=== PATIENT | male | born 1955 | race Caucasian/White ===

== ENCOUNTER 2018-05-25 13:10 | Inpatient (IN) ==
--- NOTE | 2018-05-25 13:54 | XR ---
EXAM DATE: 05/25/2018 1:49 PM EST AGE/SEX: 62 years / Male INDICATIONS: Chest pain. CLINICAL DATA: This is the patient's initial encounter. Patient reports that signs and symptoms have been present for 1 day and indicates a pain score of 4/10. MEDICAL/SURGICAL HISTORY: Metastatic lung cancer COMPARISON: No prior exams available for comparison. FINDINGS: Study remains abnormal. The heart remains enlarged. There is elevation of the left hemidiaphragm with consolidative changes laterally in the left lung. Minimal parenchymal changes are present in the right base There is no pleural effusion. [id number] in good position. CONCLUSION: Chest remains abnormal with consolidative masslike opacities in the left lung laterally and right bas e Moderate compensated cardiomegaly Electronically signed by: Cuba Rodney MD Board Certified Radiologist 05/25/2018 1:53 PM EST
[2018-05-25 14:56] LABS: Baso % (Auto) 0.2 % (0.0-2.0); Eos % (Auto) 0.4 % (0.0-4.0); Hematocrit 37.4 % (39.0-51.0); Hemoglobin 12.3 gm/dL (13.0-17.0); Lymph # (Auto) 0.6 th/mm3 (1.0-4.8); Lymph % (Auto) 5.9 % (9.0-44.0); Mean Corpuscular HGB Conc 32.9 % (32.0-36.0); Mean Corpuscular Hemoglobin 30.6 pg (27.0-34.0); Mean Corpuscular Volume 92.9 fL (80.0-100.0); Mean Platelet Volume 8.5 fL (7.0-11.0); Mono # (Auto) 0.8 th/mm3 (0.0-0.9); Mono % (Auto) 7.7 % (0.0-8.0); Neut # (Auto) 8.5 th/mm3 (1.8-7.7); Neut % (Auto) 85.8 % (16.0-70.0); Platelet Count 183 th/mm3 (150-450); Red Blood Count 4.03 mil/mm3 (4.50-5.90); White Blood Count 9.9 th/mm3 (4.0-11.0)
[2018-05-25] MEDS ORDERED: Morphine Inj 4 MG, Morphine Inj 2 MG IV.PUSH ONE ×4 (15:08→17:45)
[2018-05-25 15:12] LABS: Alanine Aminotransferase 40 U/L (12-78); Albumin 2.8 g/dL (3.4-5.0); Anion Gap 7 meq/L (5-15); Aspartate Aminotransferase 21 U/L (15-37); Blood Urea Nitrogen 17 mg/dL (7-18); Chloride 98 meq/L (98-107); Glomerular Filtration Rate 78 mL/min (>89); Glucose,Random 278 mg/dL (74-106); Potassium 4.2 meq/L (3.5-5.1); Sodium 134 meq/L (136-145)
[2018-05-25 15:14] LABS: Alkaline Phosphatase 99 U/L (45-117); Total Protein 6.5 g/dL (6.4-8.2)
[2018-05-25 15:54] LABS: Lymphocytes 2 % (9-44); Metamyelocytes 1 % (0-1); Monocytes 6 % (0-8); Myelocytes 1 % (0-0)
[2018-05-25 15:56] LABS: Platelet Estimate Normal (Normal); Platelet Morphology Normal (Normal)
--- NOTE | 2018-05-25 17:41 | CT ---
EXAM DATE: 05/25/2018 5:34 PM EST AGE/SEX: 62 years / Male INDICATIONS: Leg numbness and back pain , patient with lung cancer CLINICAL DATA: This is the patient's initial encounter. Patient reports that signs and symptoms have been present for 1 day and indicates a pain score of 8/10. MEDICAL/SURGICAL HISTORY: Carcinoma, lung. Diabetes. None. RADIATION DOSE: 32.97 CTDI (mGy) ; Combined studies COMPARISON: No prior exams available for comparison. TECHNIQUE: Contiguous axial images were acquired with a multirow detector CT scanner without contras t. Multiplanar reconstructions in the sagittal and coronal plane were also performed. Using automate d exposure control and adjustment of the mA and/or kV according to patient size, radiation dose was k ept as low as reasonably achievable to obtain optimal diagnostic quality images. DICOM format image data is available electronically for review and comparison. FINDINGS: Vertebrae: Normal vertebral body height. Degenerative disc disease L4-5. Small anterior endplate ost eophytes at multiple levels. Alignment: Normal. No subluxation. T12-L1: The thecal sac has a normal diameter. No evidence of disc bulge or protrusion. The neural foramina are patent bilaterally. L1-L2: The thecal sac has a normal diameter. No evidence of disc bulge or protrusion. The neural f oramina are patent bilaterally. L2-L3: Mild broad-based disc bulge abuts the ventral thecal sac without canal stenosis. The neural f oramina are patent bilaterally. L3-L4: Moderate broad-based disc bulge abuts the ventral thecal sac and in conjunction with hypertro phic facets/ligamentum flavum thickening causes severe canal stenosis. The neural foramina are paten t bilaterally. L4-L5: Moderate right-sided protrusion abuts the ventral thecal sac. Mild degree of canal stenosis. Moderate bilateral neural foraminal narrowing. Hypertrophic facets greater on the right. L5-S1: The thecal sac has a normal diameter. No evidence of disc bulge or protrusion. The neural f oramina are patent bilaterally. CONCLUSION: 1. Mild broad-based disc bulge L2-3 without canal stenosis. 2. Moderate broad-based disc bulge at L3-4 in conjunction with hypertrophic facets causes severe can al stenosis. 3. Moderate right-sided protrusion L4-5 causes mild canal stenosis. Electronically signed by: Emory Azevedo MD Board Certified Radiologist 05/25/2018 5:40 PM EST
--- NOTE | 2018-05-25 17:50 | CT ---
EXAM DATE: 05/25/2018 5:39 PM EST AGE/SEX: 62 years / Male INDICATIONS: Leg numbness, back pain, patient with lung cancer CLINICAL DATA: This is the patient's initial encounter. Patient reports that signs and symptoms have been present for 1 day and indicates a pain score of 8/10. MEDICAL/SURGICAL HISTORY: Carcinoma, lung. Diabetes. None. RADIATION DOSE: 32.97 CTDI (mGy) ; Combined studies COMPARISON: [facility], CTA PULMONARY W CONTRAST W 3D, 04/20/2018. [facility], CTA PULMONARY W CONTRAST W 3D, 01/08/2018. . TECHNIQUE: Contiguous axial images were acquired using a multirow detector CT scanner without contra st. Multiplanar reconstruction in the sagittal and coronal planes was performed. Using automated exp osure control and adjustment of the mA and/or kV according to patient size, radiation dose was kept a s low as reasonably achievable to obtain optimal diagnostic quality images. DICOM format image data is available electronically for review and comparison. FINDINGS: Vertebrae: Compression fracture moderate severity at T3. Kyphosis and diffuse moderate degenerative changes. Multiple anterior endplate osteophytes. Large mass in the right lower lobe Alignment: Normal. No subluxation. T1 - T2: Normal. T2 - T3: The thecal sac has a normal diameter. No evidence of disc bulge or protrusion. T3 - T4: There appears to be a compression fracture at T3. There appears to be involvement of the th ecal sac and possible canal stenosis. This is somewhat limited due to image degradation. T4 - T5: The thecal sac has a normal diameter. No evidence of disc bulge or protrusion. T5 - T6: The thecal sac has a normal diameter. No evidence of disc bulge or protrusion. T6 - T7: The thecal sac has a normal diameter. No evidence of disc bulge or protrusion. T7 - T8: The thecal sac has a normal diameter. No evidence of disc bulge or protrusion. T8 - T9: The thecal sac has a normal diameter. No evidence of disc bulge or protrusion. T9 - T10: The thecal sac has a normal diameter. No evidence of disc bulge or protrusion. T10 - T11: The thecal sac has a normal diameter. No evidence of disc bulge or protrusion. T11 - T12: The thecal sac has a normal diameter. No evidence of disc bulge or protrusion. T12 - L1: The thecal sac has a normal diameter. No evidence of disc bulge or protrusion. CONCLUSION: 1. Pathologic fracture with moderate compression deformity at T3. There does appear to be a large so ft tissue component encroaching upon the thecal sac and causing severe canal stenosis. The exam is so mewhat limited due to image degradation. 2. Kyphosis and diffuse degenerative changes. Electronically signed by: Emory Azevedo MD Board Certified Radiologist 05/25/2018 5:49 PM EST
[2018-05-25] MEDS ORDERED: Morphine Sulfate Inj 8 MG/ML Vial IV.PUSH ONE (18:00)
--- NOTE | 2018-05-25 18:12 | ED ---
HPI General Chief complaint: Weakness Stated complaint: leg pain Time Seen by Provider: 05/25/18 13:22 History of Present Illness HPI narrative: Patient is a 62-year-old male presents emergency department for evaluation of weakness leg pain and inability to ambulate for the past 3 days. Patient has a history of squamous cell cancer of the lungs, he recently started chemotherapy. Denies any chest pain shortness of breath abdominal pain nausea vomiting urinary retention fevers cough or congestion. He does endorse low back pain which is chronic for him. May also have some upper back pain as well. States symptoms are severe, he has been urinating into a urinal instead of going to the bathroom. He is not had to have bowel movements is been lost on the couch. Is calmly by his and 2 sisters and they are unable to ambulate him at home secondary to his pain and his size. Symptoms are moderate , gradually worsening, over the past 3 days, associated signs and symptoms and context as above. Related Data Home Medications Medication Instructions Recorded Confirmed acetaminophen [Tylenol Extra 500 mg PO Q6H PRN 04/20/18 05/25/18 Strength] ibuprofen 400 mg PO Q4-6H PRN 04/20/18 05/25/18 oxycodone 10 mg PO Q4-6H PRN 04/20/18 05/25/18 alprazolam 0.5 mg PO BID PRN 05/25/18 05/25/18 metformin 850 mg PO BID 05/25/18 05/25/18 Allergies Allergy/AdvReac Type Severity Reaction Status Date / Time No Known Allergies Allergy Verified 05/25/18 13:20 Review of Systems ROS: all other systems reviewed are negative [facility] Social History Social History Substance History: No History of Abuse Second Hand Smoke Exposure: No Smoking Status: Never smoker How Often Do You Have a Drink Containing Alcohol: Never Recent Travel in [facility] within the Last 8 Weeks: No Recent Out of Country Travel within the Last 8 Weeks: No Immunization History Tetanus Immunization: >5 Years Exam Narrative Exam Narrative: GENERAL: Well-developed well-nourished, no obvious distress. morbidly obese. SKIN: Focused skin assessment warm/dry. HEAD: Atraumatic. Normocephalic. EYES: Pupils equal and round. No scleral icterus. No injection or drainage. ENT: No nasal bleeding or discharge. Mucous membranes pink and moist. NECK: Trachea midline. No JVD. CARDIOVASCULAR: Regular rate and rhythm. No murmur appreciated. RESPIRATORY: No accessory muscle use. Clear to auscultation. Breath sounds equal bilaterally. GASTROINTESTINAL: Abdomen soft, non-tender, nondistended. Hepatic and splenic margins not palpable. MUSCULOSKELETAL: No obvious deformities. No clubbing. No cyanosis. No edema. No midline CT or L-spine tenderness per NEUROLOGICAL: Awake and alert. No obvious cranial nerve deficits. Motor grossly within normal limits. Normal speech. Patient has 5 out of 5 strength in dorsiflexion and plantarflexion. He is able to move his legs at all joints but strength examination is limited by the patient's body habitus and willingness to cooperate in exam. PSYCHIATRIC: Appropriate mood and affect; insight and judgment normal. Course Initial Documented Vital Signs Temperature 97.5 F L 05/25/18 13:18 Pulse Rate 106 H 05/25/18 13:18 Respiratory Rate 24 05/25/18 13:18 Blood Pressure 138/7 L 05/25/18 13:18 Pulse Oximetry 93 L 05/25/18 13:18 Last Documented Vital Signs Temperature 97.5 F L 05/25/18 13:18 Pulse Rate 102 H 05/25/18 17:57 Respiratory Rate 18 05/25/18 17:57 Blood Pressure 97/56 L 05/25/18 17:57 Pulse Oximetry 97 05/25/18 17:57 Medical Decision Making [facility] Narrative Medical decision making narrative: Patient room in emerge department my first concern is for pathologic fracture of his back. CT scans of his thoracic and lumbar spine have been ordered and do show a acute compression fracture at T3 with some retropulsion of elements. Patient also had reported some numbness and tingling over his abdomen I think that this fracture needs further workup with MRI. Patient states he is incredibly claustrophobic but I have reiterated that he has to have this MRI to prevent paralysis. Patient was discussed with Dr. Sutton who is on-call for neurosurgery. Also discussed need for admission and he is agreeable. He is received a total of 12 mg of morphine. On-call hospitalist has been paged Dr. Correa. Lab Data Result diagrams: 05/25/18 14:20 05/25/18 14:20 Lab Results 05/25/18 05/25/18 Range/Units 14:20 14:20 WBC 9.9 (4.0-11.0) th/mm3 RBC 4.03 L (4.50-5.90) mil/mm3 Hgb 12.3 L (13.0-17.0) gm/dL Hct 37.4 L (39.0-51.0) % MCV 92.9 (80.0-100.0) fL MCH 30.6 (27.0-34.0) pg MCHC 32.9 (32.0-36.0) % RDW 15.0 (11.6-17.2) % Plt Count 183 (150-450) th/mm3 MPV 8.5 (7.0-11.0) fL Prelim Diff (Auto) Slide review pending Neut % (Auto) 85.8 H (16.0-70.0) % Lymph % (Auto) 5.9 L (9.0-44.0) % Chambers % (Auto) 7.7 (0.0-8.0) % Eos % (Auto) 0.4 (0.0-4.0) % Baso % (Auto) 0.2 (0.0-2.0) % Neut # (Auto) 8.5 H (1.8-7.7) th/mm3 Lymph # (Auto) 0.6 L (1.0-4.8) th/mm3 Chambers # (Auto) 0.8 (0.0-0.9) th/mm3 Eos # (Auto) 0.0 (0.0-0.4) th/mm3 Baso # (Auto) 0.0 (0.0-0.2) th/mm3 WBC Differential Manual diff final Seg Neuts % (Manual) 83 H (16-70) % Band Neuts % (Manual) 7 H (0-6) % Lymphocytes % (Manual) 2 L (9-44) % Monocytes % (Manual) 6 (0-8) % Metamyelocytes % (Man) 1 (0-1) % Myelocytes % (Man) 1 H (0-0) % Abs Neuts (Manual) 9.1 H (1.8-7.7) th/mm3 Differential Comment . Platelet Estimate Normal (Normal) Platelet Morphology Normal (Normal) Sodium 134 L (136-145) meq/L Potassium 4.2 (3.5-5.1) meq/L Chloride 98 (98-107) meq/L Carbon Dioxide 29.0 (21.0-32.0) meq/L Anion Gap 7 (5-15) meq/L BUN 17 (7-18) mg/dL Creatinine 0.98 (0.60-1.30) mg/dL Estimated GFR 78 L (>89) mL/min Random Glucose 278 H (74-106) mg/dL Calcium 9.0 (8.5-10.1) mg/dL Total Bilirubin 0.4 (0.2-1.0) mg/dL AST 21 (15-37) U/L ALT 40 (12-78) U/L Alkaline Phosphatase 99 (45-117) U/L Total Protein 6.5 (6.4-8.2) g/dL Albumin 2.8 L (3.4-5.0) g/dL Imaging Data Radiologist's impression: Chest X-Ray 05/25/18 13:24 CONCLUSION: Chest remains abnormal with consolidative masslike opacities in the left lung laterally and right base Moderate compensated cardiomegaly Lumbar Spine CT 05/25/18 15:05 CONCLUSION: 1. Mild broad-based disc bulge L2-3 without canal stenosis. 2. Moderate broad-based disc bulge at L3-4 in conjunction with hypertrophic facets causes severe canal stenosis. 3. Moderate right-sided protrusion L4-5 causes mild canal stenosis. Thoracic Spine CT 05/25/18 15:05 CONCLUSION: 1. Pathologic fracture with moderate compression deformity at T3. There does appear to be a large soft tissue component encroaching upon the thecal sac and causing severe canal stenosis. The exam is somewhat limited due to image degradation. 2. Kyphosis and diffuse degenerative changes. Discharge Plan Physicians Team ED Provider: Olivier Caruso Primary Care Provider: Anuel Watson Other Providers: Alexey Sutton Rxs /Orders / Referrals /Forms Prescriptions: No Action metformin 850 mg Tablet 850 mg PO BID RF: 0 alprazolam 0.5 mg Tablet 0.5 mg PO BID PRN (Reason: Pain) RF: 0 oxycodone 5 mg Tablet 10 mg PO Q4-6H PRN (Reason: Pain) RF: 0 acetaminophen [Tylenol Extra Strength] 500 mg Tablet 500 mg PO Q6H PRN (Reason: Pain) RF: 0 ibuprofen 200 mg Tablet 400 mg PO Q4-6H PRN (Reason: Pain) RF: 0 Status ED Status: Pending Admission
[2018-05-25] MEDS ORDERED: Bisacodyl 10 MG Supp RECTAL PRN (18:21)
[2018-05-25] MEDS ORDERED: Acetaminophen 325 MG Tablet PO PRN ×2 (18:21→21:55)
[2018-05-25] MEDS ORDERED: Dexamethasone Inj 20 MG/5 ML Vial IV.PUSH ONE (18:24)
[2018-05-25] MEDS: Enoxaparin Inj 40 MG/0.4 ML Syringe SQ SCH (19:14)
--- NOTE | 2018-05-25 19:39 | P.CONNS ---
History of Present Illness Service: Neurosurgery Consult date: 05/25/18 Requesting Physician: Olivier Caruso Reason for Consult: Back pain, T3 compression fracture Primary Care Provider: Anuel Watson MD Chief Complaint: back pain History of Present Illness: I was asked by to see and evaluate this pleasant 62-year-old male who presents to the emergency department for evaluation of back pain and weakness in BLE with inability to ambulate for the past 3 days. Patient has a history of squamous cell cancer of the lung, he recently started chemotherapy. Denies any chest pain shortness of breath abdominal pain nausea vomiting urinary retention fevers cough or congestion. He does endorse upper back pain which is chronic for him, he says that he has had this for months but the weakness since Wednesday.. States that the symptoms are severe, he has been urinating into a urinal instead of going to the bathroom. He has not had bowel movements for the past 3-4 days. He denies bowel/bladder dysfunction. Symptoms are gradually worsening, over the past 3 days Review of Systems All other systems reviewed negative except as stated in HPI PMFSH - History History Provided By: Patient - Medical History Medical History: Medical History (Last Reviewed 05/25/18 @ 19:14 by Alexey Sutton MD) Abnormal biopsy result Cancer, skin, squamous cell Diabetes Lung cancer - Tobacco History Second Hand Smoke Exposure: No Smoking Status: Never smoker - Alcohol History How Often Do You Have a Drink Containing Alcohol: Never - Substance Use History Substance History: No History of Abuse - Travel History Recent Travel in the [place] Within the Last 8 Weeks: No Recent Travel Out of the Country Within the Last 8 Weeks: No - Immunization History Tetanus Immunization: >5 Years Medications and Allergies Active Medications: Active Medications Acetaminophen (Tylenol) 650 mg PO Q4H PRN PRN Reason: Headache, fever, pain 1-4 Al Hydroxide/Mg Hydroxide (Milk Of Magnesia Liq) 30 ml PO Q12H PRN PRN Reason: Mild Constipation Bisacodyl (Dulcolax Supp) 10 mg RECTAL DAILY PRN PRN Reason: SEVERE CONSITIPATION Dexamethasone Sodium Phosphate (Decadron Inj) 4 mg IV.PUSH Q8HR BALTAZAR Enoxaparin Sodium (Lovenox Inj) 40 mg SQ Q24H BALTAZAR Lactulose (Lactulose Liq) 30 ml PO DAILY PRN PRN Reason: SEVERE CONSITIPATION Ondansetron HCl (Zofran Inj) 4 mg IV.PUSH Q6H PRN PRN Reason: NAUSEA OR VOMITING Sennosides (Senokot) 17.2 mg PO Q12H PRN PRN Reason: Moderate Constipation Sodium Chloride (Ns Flush) 2 ml IV.FLUSH UNSCH PRN PRN Reason: FLUSH AFTER USING IV ACCESS Sodium Chloride (Ns Flush) 2 ml IV.FLUSH BID BALTAZAR Sodium Chloride (Ns Flush) 2 ml IV.FLUSH PRN PRN PRN Reason: FLUSH AFTER USING IV ACCESS Allergies Allergy/AdvReac Type Severity Reaction Status Date / Time No Known Allergies Allergy Verified 05/25/18 13:20 Home Medications Medication Instructions Recorded Confirmed Type acetaminophen [Tylenol Extra 500 mg PO Q6H PRN 04/20/18 05/25/18 History Strength] ibuprofen 400 mg PO Q4-6H PRN 04/20/18 05/25/18 History oxycodone 10 mg PO Q4-6H PRN 04/20/18 05/25/18 History alprazolam 0.5 mg PO BID PRN 05/25/18 05/25/18 History carboplatin mg/m2 IV Q4W 05/25/18 History metformin 850 mg PO BID 05/25/18 05/25/18 History paclitaxel mg/m2/hr IV 05/25/18 History Exam Vital signs: Vital Signs 05/25/18 13:18 05/25/18 14:16 05/25/18 14:57 Temperature 97.5 F L Pulse Rate 106 H 99 H Respiratory Rate 24 18 Blood Pressure 138/7 L 126/80 Pulse Oximetry 93 L 95 96 05/25/18 17:57 Temperature Pulse Rate 102 H Respiratory Rate 18 Blood Pressure 97/56 L Pulse Oximetry 97 Intake & Output 05/25/18 05/25/18 05/26/18 06:59 18:59 06:59 Weight 163.293 kg - Constitutional mild distress, morbidly obese, cooperative - Routine HEENT Exam Head: Present: normocephalic, atraumatic Eye: Present: EOMI, PERRL, normal accommodation ENT: Present: mucous membranes moist, oropharynx clear, external ear normal, TM' s clear bilaterally - Routine Neck Exam Present: supple, full ROM, trachea midline - Routine Respiratory Exam Present: CTA bilaterally - Routine Cardiovascular Exam Present: RRR - Routine Abdominal Exam Present: soft, normoactive bowel sounds - Routine Extremities Exam Comments: R lower extremity with venous stasis and ? phlebitis over anterior willams - Routine Skin Exam Present: intact, warm, normal turgor - Routine Neurological Exam MS; AAOx3 Speech: fluent CNII-XII: intact, fundoscopic exam llimited due to pupillary constriction Motor 5/5 R=L in BUE RLE Iliopsoas #=/5 Quads- 3+/5 Ant. Tib 4+/5 EHL- 4+-5-/5 Sensory: +LT,+PP Cerebellum: WNL Gait: not tested - Detailed Neurological Exam: Coma Scale Eye Opening: Spontaneous Verbal Response: Oriented Motor Response: Obey commands [place] Coma Scale Total: 15 - Routine Psychiatric Exam Present: normal affect, normal thought process, cooperative, good judgment Results - Laboratory Findings CBC and BMP: 05/25/18 14:20 05/25/18 14:20 Abnormal lab findings: Abnormal Labs 05/25/18 05/25/18 14:20 14:20 RBC 4.03 L Hgb 12.3 L Hct 37.4 L Neut % (Auto) 85.8 H Lymph % (Auto) 5.9 L Neut # (Auto) 8.5 H Lymph # (Auto) 0.6 L Seg Neuts % (Manual) 83 H Band Neuts % (Manual) 7 H Lymphocytes % (Manual) 2 L Myelocytes % (Man) 1 H Abs Neuts (Manual) 9.1 H Sodium 134 L Estimated GFR 78 L Random Glucose 278 H Albumin 2.8 L - Diagnostic Findings EKG: report reviewed, image reviewed Chest x-ray: report reviewed, image reviewed Abdominal x-ray: report reviewed, image reviewed CT scan - abdomen: report reviewed, image reviewed CT scan - chest: report reviewed, image reviewed CT scan - pelvic: report reviewed, image reviewed US - abdomen: report reviewed, image reviewed US - kidney: report reviewed, image reviewed US - pelvic: report reviewed, image reviewed Assessment and Plan - Plan 64 yo male with acute onset of BLE weakness with Rt>>Lt. Right lower extremity shows possible early cellulitis,needs further workup T spine CT shows significant compression fracture with mild retropulsion although images are degraded due to morbid obesity. The patient has intact sensation so his symptoms do not correlate well with the T3 findings. Recc: T and L-spine MRI with and without Gadolinium Will follow with you Discussed Condition With: Patient and family members including sisters.
--- NOTE | 2018-05-25 20:46 | P.HPIM ---
History of Present Illness History of Present Illness: History from patient, ER physician communication, and review of medical records. Patient reported that for the past 3 days or so, he was so weak on his right side of the legs. He also has some numbness. He actually fell 2 days ago and injured his left knee. He denies any urinary disturbance or bowel disturbance. Reports he has been having back pain for the past 2 months as well. However the back pain is worse in the past 1 month or so. Denies any loss of sensation although he does feel numb on b right lower extremity. 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 He is currently on chemotherapy for this lung cancer and his first dose was done 2 weeks ago. While in the emergency room, further workup revealed a T3 pathological fracture. Patient was seen by neurosurgery in ER prior to my arrival. Apart from the above, patient denies any chest pain/palpitations/dizziness/ focal weakness. Denies any hematemesis/hematochezia/melena/hematuria. Denies any abdominal pains. Denies any nausea/vomiting/diarrhea/urinary burning or pain on urination. Patient reports of shortness of breath on exertion at baseline. Nothing has worsened in the past 2 weeks. Patient states that her right lower extremity is bigger than the left and he has had bilateral lower extremity swelling. Just 2 weeks ago, he has had ultrasound of the lower extremities done to rule out DVT with his oncologist Dr. Melchor. Review of system: complete review of systems performed and is negative apart from what is mentioned in HPI Past medical history: Squamous cell carcinoma of the left arm. Status post excision. Status post radiation therapy. 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 Status post chemotherapy first round 2 weeks ago. Next due on Wednesday. Also had radiation therapy to the lung. Diabetes Sleep apnea. On CPAP at home. Past surgical history: Surgical excision of the skin cancer MediPort placement Social history: Denies smoking/alcohol abuse/drug abuse. Never been a smoker. Family history: Mother had colon cancer at age 6060 years old. Father had esophageal cancer, vocal cord cancer. Possibly hypertension as well. Inpatient Certification Inpatient Certification: I certify that the inpatient services were ordered in accordance with Medicare regulations governing the order. This includes certification that hospital inpatient services are reasonable and necessary and in the case of services not specified as inpatient-only under 42 CFR 419.22(n), that they are appropriately provided as inpatient services in accordance to with the 2-midnight benchmark under 43 CFR 412.3(e) Estimated Total Length of Stay (Days): 3 Plans for Post Hospital Care: Not yet determined Review of Systems Review of Systems: all other systems reviewed are negative [facility] Social History Social History Substance History: No History of Abuse Second Hand Smoke Exposure: No Smoking Status: Never smoker How Often Do You Have a Drink Containing Alcohol: Never Recent Travel in [facility] within the Last 8 Weeks: No Recent Out of Country Travel within the Last 8 Weeks: No Immunization History Tetanus Immunization: >5 Years Medications and Allergies Allergies Allergy/AdvReac Type Severity Reaction Status Date / Time No Known Allergies Allergy Verified 05/25/18 13:20 Home Medications Medication Instructions Recorded Confirmed Type acetaminophen [Tylenol Extra 500 mg PO Q6H PRN 04/20/18 05/25/18 History Strength] ibuprofen 400 mg PO Q4-6H PRN 04/20/18 05/25/18 History oxycodone 10 mg PO Q4-6H PRN 04/20/18 05/25/18 History alprazolam 0.5 mg PO BID PRN 05/25/18 05/25/18 History carboplatin mg/m2 IV Q4W 05/25/18 History metformin 850 mg PO BID 05/25/18 05/25/18 History paclitaxel mg/m2/hr IV 05/25/18 History Active Medications: Active Medications Acetaminophen (Tylenol) 650 mg PO Q4H PRN PRN Reason: Headache, fever, pain 1-4 Al Hydroxide/Mg Hydroxide (Milk Of Magnesia Liq) 30 ml PO Q12H PRN PRN Reason: Mild Constipation Bisacodyl (Dulcolax Supp) 10 mg RECTAL DAILY PRN PRN Reason: SEVERE CONSITIPATION Dexamethasone Sodium Phosphate (Decadron Inj) 4 mg IV.PUSH Q8HR BALTAZAR Enoxaparin Sodium (Lovenox Inj) 40 mg SQ Q24H BALTAZAR Last Admin: 05/25/18 19:14 Dose: 40 mg Lactulose (Lactulose Liq) 30 ml PO DAILY PRN PRN Reason: SEVERE CONSITIPATION Ondansetron HCl (Zofran Inj) 4 mg IV.PUSH Q6H PRN PRN Reason: NAUSEA OR VOMITING Sennosides (Senokot) 17.2 mg PO Q12H PRN PRN Reason: Moderate Constipation Sodium Chloride (Ns Flush) 2 ml IV.FLUSH UNSCH PRN PRN Reason: FLUSH AFTER USING IV ACCESS Sodium Chloride (Ns Flush) 2 ml IV.FLUSH BID BALTAZAR Last Admin: 05/25/18 20:06 Dose: 2 ml Sodium Chloride (Ns Flush) 2 ml IV.FLUSH PRN PRN PRN Reason: FLUSH AFTER USING IV ACCESS Physical Exam Vital signs: Last Vital Signs Temp 97.5 F L 05/25/18 13:18 Pulse 95 H 05/25/18 20:11 Resp 20 05/25/18 20:11 BP 97/56 L 05/25/18 20:11 Pulse Ox 97 05/25/18 17:57 Intake & Output 05/23/18 05/24/18 05/25/18 05/26/18 06:59 06:59 06:59 06:59 Weight 163.293 kg Narrative: GENERAL: This is a well-nourished, well-developed patient, in mild distress from pain and position CARDIOVASCULAR: Regular rate and rhythm without murmurs, gallops, or rubs. RESPIRATORY: Clear to auscultation. Breath sounds equal bilaterally. No wheezes , rales, or rhonchi. decreased air entry bilaterally due to poor inspiratory effort and body habitus GASTROINTESTINAL: Abdomen soft, non-tender, nondistended. Normal active bowel sounds MUSCULOSKELETAL: Extremities without clubbing, cyanosis, or edema. NEURO: Alert & Oriented x4 to person, place, time, situation. RLE on bed, with LLE hanging down the bed. Power 1-2/5 on the Right; difficult exam as pt was becoming sedated towards end of interview and exam due to receiving ativan for sedation prior to MRI Results Labs CBC & Chem 7: 05/26/18 04:33 05/26/18 04:33 Imaging Impressions Chest X-Ray 05/25/18 13:24 CONCLUSION: Chest remains abnormal with consolidative masslike opacities in the left lung laterally and right base Moderate compensated cardiomegaly Lumbar Spine CT 05/25/18 15:05 CONCLUSION: 1. Mild broad-based disc bulge L2-3 without canal stenosis. 2. Moderate broad-based disc bulge at L3-4 in conjunction with hypertrophic facets causes severe canal stenosis. 3. Moderate right-sided protrusion L4-5 causes mild canal stenosis. Thoracic Spine CT 05/25/18 15:05 CONCLUSION: 1. Pathologic fracture with moderate compression deformity at T3. There does appear to be a large soft tissue component encroaching upon the thecal sac and causing severe canal stenosis. The exam is somewhat limited due to image degradation. 2. Kyphosis and diffuse degenerative changes. Caprini VTE Risk Assessment Caprini VTE Risk Assessment: Moderate/High Risk (score >= 2) Caprini Risk Assessment Model: Point Value = 1 Point Value = 2 Point Value = 3 Point Value = 5 Age 41-60 Minor surgery BMI > 25 kg/m2 Swollen legs Varicose veins or History of unexplained or recurrent spontaneous Oral contraceptives or hormone replacement Sepsis (< 1 month) Serious lung disease, including pneumonia (< 1 month) Abnormal pulmonary function Acute myocardial infarction Congestive heart failure (< 1 month) History of inflammatory bowel disease Medical patient at bed rest Age 61-74 Arthroscopic surgery Major open surgery (> 45 min) Laparoscopic surgery (> 45 min) Malignancy Confined to bed (> 72 hours) Immobilizing plaster cast Central venous access Age >= 75 History of VTE Family history of VTE Factor V Leiden Prothrombin [id number] Lupus anticoagulant Anticardiolipin antibodies Elevated serum homocysteine Heparin-induced thrombocytopenia Other congenital or acquired thrombophilia Stroke (< 1 month) Elective arthroplasty Hip, pelvis, or leg fracture Acute spinal cord injury (< 1 month) Prophylaxis Regimen: Total Risk Factor Score Risk Level Prophylaxis Regimen 0-1 Low Early ambulation 2 Moderate Order ONE of the following: *Sequential Compression Device (SCD) *Heparin 5000 units SQ BID 3-4 Higher Order ONE of the following medications: *Heparin 5000 units SQ TID *Enoxaparin/Lovenox 40 mg SQ daily (WT < 150 kg, CrCl > 30 mL/min) *Enoxaparin/Lovenox 30 mg SQ daily (WT < 150 kg, CrCl > 10-29 mL/min) *Enoxaparin/Lovenox 30 mg SQ BID (WT < 150 kg, CrCl > 30 mL/min) AND/OR *Sequential Compression Device (SCD) 5 or more Highest Order ONE of the following medications: *Heparin 5000 units SQ TID (Preferred with Epidurals) *Enoxaparin/Lovenox 40 mg SQ daily (WT < 150 kg, CrCl > 30 mL/min) *Enoxaparin/Lovenox 30 mg SQ daily (WT < 150 kg, CrCl > 10-29 mL/min) *Enoxaparin/Lovenox 30 mg SQ BID (WT < 150 kg, CrCl > 30 mL/min) AND *Sequential Compression Device (SCD) Assessment and Plan Plan Impression: Acute pathological fracture of T3 Bilateral lower extremity weakness and numbness with inability to bear weight. Right more than the left. Secondary to above. Peripheral edema with right lower extremity greater than the left. DVT studies -2 weeks ago. Bilateral lower extremity mild healed ulcerations. Patient reports chronicity. Reports improvement as compared to prior. 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 Status post excision. Status post radiation therapy. 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 Status post chemotherapy first round 2 weeks ago. Next due on Wednesday. Also had radiation therapy to the lung. Diabetes Sleep apnea. On CPAP at home. Plan: Patient was evaluated by neurosurgery. We will follow recommendations. Patient was given Decadron 10 mg IV in ER. Also on continued dose of 4 mg IV every 6 hours. GI prophylaxis while on steroids. Resume home meds. DVT prophylaxis on Lovenox.
[2018-05-25] MEDS ORDERED: Gadobutrol PF 15 MMOL/15 ML Vial (for RAD) IV.SIG ONE (22:40)
--- NOTE | 2018-05-25 23:24 | MR ---
EXAM DATE: 05/25/2018 11:07 PM EST AGE/SEX: 62 years / Male INDICATIONS: . Pathologic fracture T3 CLINICAL DATA: This is the patient's initial encounter. Patient reports that signs and symptoms have been present for 1 month and indicates a pain score of 7/10. MEDICAL/SURGICAL HISTORY: Diabetes mellitus type II. Lung Ca- Squamous Carcinoma . Left axilla Tumor COMPARISON: [facility] [place], CT THORACIC SPINE W/O CONTRAST, 05/25/2018. . TECHNIQUE: Multiplanar, multisequence MRI of the thoracic spine was performed without and with 15 ml Gadavist (gadobutrol) contrast as a single exam dose. FINDINGS: Vertebrae: There is abnormal signal seen at the T3 vertebral body. This extends into the pedicles an d the left transverse process and lamina. This area enhances. The enhancement extends beyond the post erior T3 vertebral body causing severe narrowing of the thecal sac at this level. There appears to be soft tissue signal extending out the left lateral aspect of the T3 vertebral body. There is enhancem ent anterior to the T3 vertebral body. This raises the possibility of underlying mass/metastatic dise ase in this region. No other focal lesion is seen. Alignment: Normal. Cord: Normal position and configuration. There is a 5.0 x 3.5 similar mass seen at the superior medial left upper chest involving portions of the mediastinum. There also appears to be a mass at the superior lateral left upper lung measuring up to 2.2 cm. There is some nonspecific increased signal seen at the posterior medial left lower lung m easuring 2.8 cm. There appear to be prominent mediastinal lymph nodes present. There is a mild left p leural effusion. There appear to be masses anterior to the trachea presumably related to an enlarged thyroid. T1-T2: The thecal sac has a normal diameter. No evidence of disc bulge or protrusion. T2-T3: The thecal sac has a normal diameter. No evidence of disc bulge or protrusion. T3-T4: Again noted is a compression deformity at T3. There is extension of the signal beyond the lani tebral body margin anteriorly, to the left, and posteriorly. There is severe stenosis with no signifi cant CSF seen around the cord at this level. The appearance is concerning for a metastatic lesion and a pathological fracture. The T3 vertebral body has lost proximally one half its original height. T4-T5: The thecal sac has a normal diameter. No evidence of disc bulge or protrusion. T5-T6: The thecal sac has a normal diameter. No evidence of disc bulge or protrusion. T6-T7: The thecal sac has a normal diameter. No evidence of disc bulge or protrusion. T7-T8: The thecal sac has a normal diameter. No evidence of disc bulge or protrusion. T8-T9: The thecal sac has a normal diameter. No evidence of disc bulge or protrusion. T9-T10: The thecal sac has a normal diameter. No evidence of disc bulge or protrusion. T10-T11: The thecal sac has a normal diameter. No evidence of disc bulge or protrusion. T11-T12: The thecal sac has a normal diameter. No evidence of disc bulge or protrusion. T12-L1: The thecal sac has a normal diameter. No evidence of disc bulge or protrusion. CONCLUSION: 1. Suspected pathological fracture at the T3 vertebral body resulting in severe stenosis. 2. Multiple masses in the left lung and lymph nodes in the mediastinum. The lungs and mediastinum ar en't well evaluated on this MRI examination of the thoracic spine. Electronically signed by: Guille Molina MD Board Certified Radiologist 05/25/2018 11:22 PM EST
--- NOTE | 2018-05-25 23:33 | MR ---
EXAM DATE: 05/25/2018 11:05 PM EST AGE/SEX: 62 years / Male INDICATIONS: Neoplasm. T3 fracture CLINICAL DATA: This is the patient's initial encounter. Patient reports that signs and symptoms have been present for 1 month and indicates a pain score of 7/10. MEDICAL/SURGICAL HISTORY: Diabetes mellitus type II. Lung Ca Squamous Carcinoma . [place]illa [place] [facility] [place]/25/2018. . TECHNIQUE: Multiplanar, multisequence MRI examination of the lumbar spine was performed without and with 15 ml Gadavist (gadobutrol) contrast as a single exam dose. FINDINGS: The most caudal-appearing lumbar vertebra is numbered as L5. Vertebra: Homogeneous signal. Normal alignment. There is a small hemangioma at the posterior inferi or aspect of the L3 vertebral body. There are transitional changes with some sacralization of L5. Conus: Normal level and configuration. Post Contrast: No abnormal areas of contrast enhancement are seen. There is nonspecific edema seen in the posterior midline subcutaneous fat. A focal fluid collection i s not seen. T12-L1: The thecal sac has a normal diameter. No evidence of disc bulge or protrusion. The neural foramina are patent bilaterally. L1-L2: The thecal sac has a normal diameter. No evidence of disc bulge or protrusion. The neural foramina are patent bilaterally. L2-L3: The thecal sac has a normal diameter. There is slight bulging of the disc best seen on the sagittal images. The neural foramina are patent bilaterally. There is mild facet hypertrophy especial ly on the left. L3-L4: The posterior disc margin appears intact. There is moderate facet hypertrophy and ligamentum f lavum hypertrophy. These changes lead to moderate narrowing of thecal sac with a small amount CSF see n around the nerve roots. The neural foramina are patent bilaterally. The thecal sac has a normal jennifer meter. No evidence of disc bulge or protrusion. The neural foramina are patent bilaterally. L4-L5: The disc demonstrates decreased signal. There is a mild right paracentral to right neural fo raminal disc protrusion causing mild impression on the anterior right-sided thecal sac. There continu es be CSF around the nerve roots. There is moderate facet hypertrophy. There is narrowing of the righ t neural foramina. The left neural foramina is patent. L5-S1: The thecal sac has a normal diameter. No evidence of disc bulge or protrusion. The neural foramina are patent bilaterally. There some sacralization of L5. The disc appears decreased in size s econdary to the transitional changes. CONCLUSION: 1. No focal lesions are seen. 2. Moderate narrowing of the thecal sac at the L3-L4 level primarily secondary to facet and ligament um flavum hypertrophy. 3. Right-sided disc protrusion causing mild impression on the right lateral recess and right neural foraminal regions at the L4-L5 level. 4. Sacralization of L5. This is a normal variant. Electronically signed by: Guille Molina MD Board Certified Radiologist 05/25/2018 11:32 PM EST
[2018-05-26] MEDS ORDERED: Morphine Sulfate Inj 2 MG/ML Vial IV.PUSH PRN (01:02)
[2018-05-26] MEDS ORDERED: Dextrose 50% in Water 50 ML Vial IV.PUSH PRN (01:03)
[2018-05-26] MEDS: Morphine Inj 4 MG/ML Vial IV.PUSH PRN ×3 (01:22→17:39)
[2018-05-26] MEDS ORDERED: Morphine Inj 4 MG/ML Vial IV.PUSH PRN (01:30)
[2018-05-26 05:03] LABS: Baso % (Auto) 0.1 % (0.0-2.0); Hematocrit 36.2 % (39.0-51.0); Hemoglobin 12.2 gm/dL (13.0-17.0); Lymph # (Auto) 0.4 th/mm3 (1.0-4.8); Lymph % (Auto) 3.8 % (9.0-44.0); Mean Corpuscular HGB Conc 33.8 % (32.0-36.0); Mean Corpuscular Hemoglobin 30.8 pg (27.0-34.0); Mean Corpuscular Volume 91.2 fL (80.0-100.0); Mean Platelet Volume 8.4 fL (7.0-11.0); Mono # (Auto) 0.4 th/mm3 (0.0-0.9); Mono % (Auto) 3.6 % (0.0-8.0); Neut # (Auto) 9.5 th/mm3 (1.8-7.7); Neut % (Auto) 92.5 % (16.0-70.0); Platelet Count 201 th/mm3 (150-450); Red Blood Count 3.97 mil/mm3 (4.50-5.90); Red Cell Distribution Width 14.5 % (11.6-17.2); White Blood Count 10.3 th/mm3 (4.0-11.0)
[2018-05-26 05:26] LABS: Calcium 8.6 mg/dL (8.5-10.1); Carbon Dioxide 28.2 meq/L (21.0-32.0); Potassium 4.5 meq/L (3.5-5.1)
[2018-05-26] MEDS: Insulin NovoLOG Aspart Correctional Sugar Inj SQ SCH ×4 (08:24→22:53)
--- NOTE | 2018-05-26 09:09 | P.PNNS ---
Subjective Interval history: 62-year-old male who presents to the emergency department for evaluation of back pain and weakness in BLE with inability to ambulate for the past 3 days. Patient has a history of squamous cell cancer of the lung, he recently started chemotherapy. Denies any chest pain shortness of breath abdominal pain nausea vomiting urinary retention fevers cough or congestion. He does endorse upper back pain which is chronic for him, he says that he has had this for months but the weakness since Wednesday.. States that the symptoms are severe, he has been urinating into a urinal instead of going to the bathroom. He has not had bowel movements for the past 3-4 days. He denies bowel/bladder dysfunction. Symptoms are gradually worsening, over the past 3 days 05/26/18 No overnight events. Pain well controlled Physical Exam Vital signs: Vital Signs 05/25/18 13:18 05/25/18 14:16 05/25/18 14:57 Temperature 97.5 F L Pulse Rate 106 H 99 H Respiratory Rate 24 18 Blood Pressure 138/7 L 126/80 Pulse Oximetry 93 L 95 96 05/25/18 17:57 05/25/18 20:11 05/25/18 23:00 Temperature 97.7 F Pulse Rate 102 H 95 H 107 H Respiratory Rate 18 20 17 Blood Pressure 97/56 L 97/56 L 150/80 H Pulse Oximetry 97 94 L 05/26/18 04:05 05/26/18 08:00 Temperature 97.2 F L 98.1 F Pulse Rate 104 H 101 H Respiratory Rate 17 18 Blood Pressure 125/63 147/89 H Pulse Oximetry 94 L 98 Intake & Output 05/25/18 05/26/18 05/26/18 18:59 06:59 18:59 Intake Total 40 / 40 Balance 40 / 40 Weight 163.293 kg 163.6 kg Intake: Oral 40 / 40 Other: # Voids 2 Date of Last Bowel Movement 05/23/18 # Bowel Movements 0 Weight On Admission 163.293 kg - Constitutional mild distress, cooperative Comments: Upper back pain and RLE weakness. - Routine HEENT Exam Head: Present: normocephalic, atraumatic Eye: Present: EOMI, PERRL ENT: Present: mucous membranes moist, oropharynx clear, external ear normal, TM' s clear bilaterally - Routine Neck Exam Present: supple, full ROM, trachea midline - Routine Respiratory Exam Present: CTA bilaterally - Routine Cardiovascular Exam Present: RRR - Routine Abdominal Exam Present: soft, normoactive bowel sounds - Routine Extremities Exam Comments: R lower extremity with venous stasis and ? phlebitis over anterior willams, no change - Routine Skin Exam Present: intact, warm, normal turgor - Routine Neurological Exam MS; AAOx3 Speech: fluent CNII-XII: intact, fundoscopic exam llimited due to pupillary constriction Motor 5/5 R=L in BUE RLE Iliopsoas #=/5 Quads- 3+/5 Ant. Tib 4+/5 EHL- 4+-5-/5 Sensory: +LT,+PP Cerebellum: WNL Gait: not tested - Detailed Neurological Exam: Coma Scale Motor Response: Obey commands - Routine Psychiatric Exam Present: normal affect, cooperative, good judgment Assessment and Plan - Plan 64 yo male with acute onset of BLE weakness with Rt>>Lt. Stable nEURO EXAM Right lower extremity shows possible early cellulitis,needs further workup T spine CT shows significant compression fracture with mild retropulsion although images are degraded due to morbid obesity. T and L-spine MRI with and without Gadolinium shows compression from complex T3 pathologic fracture Recc: STAT Rad Onc Consult for XrT to T3 area Would start on Decadron 10 mg IV q6h for now Will CONTINUE TO follow with you
--- NOTE | 2018-05-26 11:50 | P.CON ---
History of Present Illness Service: RADIATION ONCOLOGY Consult date: 05/26/18 Reason for Consult: bone metastasis T3 Primary Care Provider: Anuel Watson MD Chief Complaint: back pain History of Present Illness: Weakness for couple of days legs. Started on steroids. Lesion onT3. Maybe noticed more after discontinued several week course of steroids. PMFSH - History History Provided By: Patient - Medical History Medical History: Medical History (Last Reviewed 05/25/18 @ 19:14 by Alexey Sutton MD) Abnormal biopsy result Cancer, skin, squamous cell Diabetes Lung cancer - Tobacco History Second Hand Smoke Exposure: No Smoking Status: Never smoker - Alcohol History How Often Do You Have a Drink Containing Alcohol: Never - Substance Use History Substance History: No History of Abuse - Travel History Recent Travel in the [place] Within the Last 8 Weeks: No Recent Travel Out of the Country Within the Last 8 Weeks: No - Immunization History Tetanus Immunization: >5 Years Hx Influenza Vaccine This Season: No Medications and Allergies Active Medications: Active Medications Acetaminophen (Tylenol) 650 mg PO Q4H PRN PRN Reason: Headache, fever, pain 1-4 Acetaminophen (Tylenol) 650 mg PO Q4H PRN PRN Reason: Temp > 100.4 Al Hydroxide/Mg Hydroxide (Milk Of Magnesia Liq) 30 ml PO Q12H PRN PRN Reason: Mild Constipation Alprazolam (Xanax) 0.5 mg PO BID PRN PRN Reason: Pain Bisacodyl (Dulcolax Supp) 10 mg RECTAL DAILY PRN PRN Reason: SEVERE CONSITIPATION Dexamethasone Sodium Phosphate (Decadron Inj) 4 mg IV.PUSH Q8HR [facility] Last Admin: 05/26/18 05:31 Dose: 4 mg Dextrose (D50w Vial) 50 ml IV.PUSH UNSCH PRN PRN Reason: PER HYPOGLYCEMIA PROTOCOL Enoxaparin Sodium (Lovenox Inj) 40 mg SQ Q24H [facility] Last Admin: 05/25/18 19:14 Dose: 40 mg Glucagon (Glucagon Inj) 1 mg OTHER PRN PRN PRN Reason: for Hypoglycemia Protocol Insulin Aspart (Novolog Insulin Correctional Sugar Inj) 0 unit SQ ACHS [facility]; Protocol Last Admin: 05/26/18 08:24 Dose: 4 unit Lactulose (Lactulose Liq) 30 ml PO DAILY PRN PRN Reason: SEVERE CONSITIPATION Morphine Sulfate (Morphine Inj) 2 mg IV.PUSH Q3H PRN PRN Reason: PAIN SCALE 1 TO 10 Last Admin: 05/26/18 08:18 Dose: 2 mg Ondansetron HCl (Zofran Inj) 4 mg IV.PUSH Q6H PRN PRN Reason: NAUSEA OR VOMITING Ondansetron HCl (Zofran Inj) 4 mg IV.PUSH Q6H PRN PRN Reason: NAUSEA OR VOMITING Oxycodone HCl (Roxicodone) 10 mg PO Q4H PRN PRN Reason: PAIN 1-10 IF TOLERATING PO Pantoprazole Sodium (Protonix) 40 mg PO DAILY [facility] Last Admin: 05/26/18 08:18 Dose: 40 mg Sennosides (Senokot) 17.2 mg PO Q12H PRN PRN Reason: Moderate Constipation Sodium Chloride (Ns Flush) 2 ml IV.FLUSH UNSCH PRN PRN Reason: FLUSH AFTER USING IV ACCESS Sodium Chloride (Ns Flush) 2 ml IV.FLUSH BID [facility] Last Admin: 05/26/18 08:21 Dose: 2 ml Sodium Chloride (Ns Flush) 2 ml IV.FLUSH PRN PRN PRN Reason: FLUSH AFTER USING IV ACCESS Sodium Chloride (Ns Flush) 2 ml IV.FLUSH BID [facility] Last Admin: 05/26/18 08:24 Dose: Not Given Sodium Chloride (Ns Flush) 2 ml IV.FLUSH PRN PRN PRN Reason: FLUSH AFTER USING IV ACCESS Allergies Allergy/AdvReac Type Severity Reaction Status Date / Time No Known Allergies Allergy Verified 05/25/18 13:20 Home Medications Medication Instructions Recorded Confirmed Type acetaminophen [Tylenol Extra 500 mg PO Q6H PRN 04/20/18 05/25/18 History Strength] ibuprofen 400 mg PO Q4-6H PRN 04/20/18 05/25/18 History oxycodone 10 mg PO Q4-6H PRN 04/20/18 05/25/18 History alprazolam 0.5 mg PO BID PRN 05/25/18 05/25/18 History carboplatin mg/m2 IV Q4W 05/25/18 History metformin 850 mg PO BID 05/25/18 05/25/18 History paclitaxel mg/m2/hr IV 05/25/18 History Physical Exam Vital signs: Vital Signs 05/25/18 13:18 05/25/18 14:16 05/25/18 14:57 Temperature 97.5 F L Pulse Rate 106 H 99 H Respiratory Rate 24 18 Blood Pressure 138/7 L 126/80 Pulse Oximetry 93 L 95 96 05/25/18 17:57 05/25/18 20:11 05/25/18 23:00 Temperature 97.7 F Pulse Rate 102 H 95 H 107 H Respiratory Rate 18 20 17 Blood Pressure 97/56 L 97/56 L 150/80 H Pulse Oximetry 97 94 L 05/26/18 04:05 05/26/18 08:00 Temperature 97.2 F L 98.1 F Pulse Rate 104 H 101 H Respiratory Rate 17 18 Blood Pressure 125/63 147/89 H Pulse Oximetry 94 L 96 Intake & Output 05/25/18 05/26/18 05/26/18 18:59 06:59 18:59 Intake Total 40 / 40 Balance 40 / 40 Weight 163.293 kg 163.6 kg Intake: Oral 40 / 40 Other: # Voids 2 Date of Last Bowel Movement 05/23/18 # Bowel Movements 0 Weight On Admission 163.293 kg Results - Labs CBC & Chem 7: 05/26/18 04:33 05/26/18 04:33 Labs: Laboratory Results - last 24 hr 05/25/18 05/25/18 05/26/18 14:20 14:20 00:09 WBC 9.9 RBC 4.03 L Hgb 12.3 L Hct 37.4 L MCV 92.9 MCH 30.6 MCHC 32.9 RDW 15.0 Plt Count 183 MPV 8.5 Prelim Diff (Auto) Slide review pending Neut % (Auto) 85.8 H Lymph % (Auto) 5.9 L Morrow % (Auto) 7.7 Eos % (Auto) 0.4 Baso % (Auto) 0.2 Neut # (Auto) 8.5 H Lymph # (Auto) 0.6 L Morrow # (Auto) 0.8 Eos # (Auto) 0.0 Baso # (Auto) 0.0 WBC Differential Manual diff final Seg Neuts % (Manual) 83 H Band Neuts % (Manual) 7 H Lymphocytes % (Manual) 2 L Monocytes % (Manual) 6 Metamyelocytes % (Man) 1 Myelocytes % (Man) 1 H Abs Neuts (Manual) 9.1 H Differential Comment . Platelet Estimate Normal Platelet Morphology Normal Sodium 134 L Potassium 4.2 Chloride 98 Carbon Dioxide 29.0 Anion Gap 7 BUN 17 Creatinine 0.98 Estimated GFR 78 L POC Glucose 243 H Random Glucose 278 H Calcium 9.0 Total Bilirubin 0.4 AST 21 ALT 40 Alkaline Phosphatase 99 Total Protein 6.5 Albumin 2.8 L 05/26/18 05/26/18 05/26/18 04:33 04:33 08:16 WBC 10.3 RBC 3.97 L Hgb 12.2 L Hct 36.2 L MCV 91.2 MCH 30.8 MCHC 33.8 RDW 14.5 Plt Count 201 MPV 8.4 Prelim Diff (Auto) Neut % (Auto) 92.5 H Lymph % (Auto) 3.8 L Morrow % (Auto) 3.6 Eos % (Auto) 0.0 Baso % (Auto) 0.1 Neut # (Auto) 9.5 H Lymph # (Auto) 0.4 L Morrow # (Auto) 0.4 Eos # (Auto) 0.0 Baso # (Auto) 0.0 WBC Differential . Seg Neuts % (Manual) Band Neuts % (Manual) Lymphocytes % (Manual) Monocytes % (Manual) Metamyelocytes % (Man) Myelocytes % (Man) Abs Neuts (Manual) Differential Comment Auto diff final Platelet Estimate Platelet Morphology Sodium 135 L Potassium 4.5 Chloride 99 Carbon Dioxide 28.2 Anion Gap 8 BUN 17 Creatinine 0.95 Estimated GFR 81 L POC Glucose 227 H Random Glucose 290 H Calcium 8.6 Total Bilirubin AST ALT Alkaline Phosphatase Total Protein Albumin - Imaging Impressions Chest X-Ray 05/25/18 13:24 CONCLUSION: Chest remains abnormal with consolidative masslike opacities in the left lung laterally and right base Moderate compensated cardiomegaly Lumbar Spine CT 05/25/18 15:05 CONCLUSION: 1. Mild broad-based disc bulge L2-3 without canal stenosis. 2. Moderate broad-based disc bulge at L3-4 in conjunction with hypertrophic facets causes severe canal stenosis. 3. Moderate right-sided protrusion L4-5 causes mild canal stenosis. Thoracic Spine CT 05/25/18 15:05 CONCLUSION: 1. Pathologic fracture with moderate compression deformity at T3. There does appear to be a large soft tissue component encroaching upon the thecal sac and causing severe canal stenosis. The exam is somewhat limited due to image degradation. 2. Kyphosis and diffuse degenerative changes. Thoracic Spine MRI 05/25/18 18:03 CONCLUSION: 1. Suspected pathological fracture at the T3 vertebral body resulting in severe stenosis. 2. Multiple masses in the left lung and lymph nodes in the mediastinum. The lungs and mediastinum aren't well evaluated on this MRI examination of the thoracic spine. Lumbar Spine MRI 05/25/18 18:49 CONCLUSION: 1. No focal lesions are seen. 2. Moderate narrowing of the thecal sac at the L3-L4 level primarily secondary to facet and ligamentum flavum hypertrophy. 3. Right-sided disc protrusion causing mild impression on the right lateral recess and right neural foraminal regions at the L4-L5 level. 4. Sacralization of L5. This is a normal variant. Assessment and Plan - Plan Palliative xrt spine 30 Gy ten fractions. Discussed with mr. mayo and his . acute side effects from xrt discussed. consent obtained.
--- NOTE | 2018-05-26 12:16 | P.PNIM ---
Subjective Interval history: Had new bed deliverd. Says he feels better. Pain in his shoulder imprpved No fever or chills. nO /v/d/c. Able to eat however he is not hungry says has no appetite and everything taste like cart board No fever or chills. Physical Exam Vital signs: Last Vital Signs Temp 98.1 F 05/26/18 08:00 Pulse 101 H 05/26/18 08:00 Resp 18 05/26/18 08:00 BP 147/89 H 05/26/18 08:00 Pulse Ox 96 05/26/18 08:00 Intake & Output 05/24/18 05/25/18 05/26/18 05/27/18 06:59 06:59 06:59 06:59 Intake Total 40 / 40 Balance 40 / 40 Weight 163.6 kg Narrative: GENERAL: This is a well-nourished, well-developed patient,appears in nad. CARDIOVASCULAR: Regular rate and rhythm without murmurs, gallops, or rubs. RESPIRATORY: Clear to auscultation. Breath sounds equal bilaterally. No wheezes , rales, or rhonchi. decreased air entry bilaterally due to poor inspiratory effort and body habitus GASTROINTESTINAL: Abdomen soft, non-tender, nondistended. Normal active bowel sounds MUSCULOSKELETAL: Extremities without clubbing, cyanosis, or edema. NEURO: Alert & Oriented x4. CN grossly normal. Strength grossly normal. Normal speech. Results Labs CBC & Chem 7: 05/26/18 04:33 05/26/18 04:33 Imaging Imaging: Impressions Chest X-Ray 05/25/18 13:24 CONCLUSION: Chest remains abnormal with consolidative masslike opacities in the left lung laterally and right base Moderate compensated cardiomegaly Lumbar Spine CT 05/25/18 15:05 CONCLUSION: 1. Mild broad-based disc bulge L2-3 without canal stenosis. 2. Moderate broad-based disc bulge at L3-4 in conjunction with hypertrophic facets causes severe canal stenosis. 3. Moderate right-sided protrusion L4-5 causes mild canal stenosis. Thoracic Spine CT 05/25/18 15:05 CONCLUSION: 1. Pathologic fracture with moderate compression deformity at T3. There does appear to be a large soft tissue component encroaching upon the thecal sac and causing severe canal stenosis. The exam is somewhat limited due to image degradation. 2. Kyphosis and diffuse degenerative changes. Thoracic Spine MRI 05/25/18 18:03 CONCLUSION: 1. Suspected pathological fracture at the T3 vertebral body resulting in severe stenosis. 2. Multiple masses in the left lung and lymph nodes in the mediastinum. The lungs and mediastinum aren't well evaluated on this MRI examination of the thoracic spine. Lumbar Spine MRI 05/25/18 18:49 CONCLUSION: 1. No focal lesions are seen. 2. Moderate narrowing of the thecal sac at the L3-L4 level primarily secondary to facet and ligamentum flavum hypertrophy. 3. Right-sided disc protrusion causing mild impression on the right lateral recess and right neural foraminal regions at the L4-L5 level. 4. Sacralization of L5. This is a normal variant. Assessment and Plan Plan Acute pathological fracture of T3 Bilateral lower extremity weakness and numbness with inability to bear weight. Right more than the left. Secondary to above. Peripheral edema with right lower extremity greater than the left. DVT studies -2 weeks ago. Bilateral lower extremity mild healed ulcerations. Patient reports chronicity. Reports improvement as compared to prior. Morbid obesity BMI of 45. Diet and exercise. 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 Status post excision. Status post radiation therapy. 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 Status post chemotherapy first round 2 weeks ago. Next due on Wednesday. Also had radiation therapy to the lung. Diabetes Sleep apnea. On CPAP at home. Patient was evaluated by neurosurgery. We will follow recommendations. Continue Decadron 10 mg IV q6hrs per neuro recommendations. GI prophylaxis while on steroids. Plan for palliative xrt spine 30 Gy ten fractions. Resume home meds. DVT prophylaxis on Lovenox. Discussd with the patient family verry supportive at bedside Progress Note: Quality VTE Deep Vein Thrombosis/Pulmonary Embolism Present on Admission: No
--- NOTE | 2018-05-26 12:20 | ECG ---
Date Performed: 05/25/2018 Time Performed: 14:32:29 PTAGE: 62 years EKG: Sinus rhythm NORMAL ECG Since the PREVIOUS TRACING , no significant change noted PREVIOUS TRACIN04/20/2018 19.44 DOCTOR: Rosie Grande Interpretating Date/Time 05/26/2018 12:16:19
[2018-05-26] MEDS: ALPRAZolam 0.5 MG Tablet PO PRN (12:35)
[2018-05-26] MEDS: Enoxaparin Inj 40 MG/0.4 ML Syringe SQ SCH (17:37)
[2018-05-27] MEDS: Morphine Inj 4 MG/ML Vial IV.PUSH PRN ×3 (02:13→17:21)
--- NOTE | 2018-05-27 08:23 | P.PNNS ---
Subjective Interval history: HD#1 62-year-old male who presents to the emergency department for evaluation of back pain and weakness in BLE with inability to ambulate for the past 3 days. Patient has a history of squamous cell cancer of the lung, he recently started chemotherapy. Denies any chest pain shortness of breath abdominal pain nausea vomiting urinary retention fevers cough or congestion. He does endorse upper back pain which is chronic for him, he says that he has had this for months but the weakness since Wednesday.. States that the symptoms are severe, he has been urinating into a urinal instead of going to the bathroom. He has not had bowel movements for the past 3-4 days. He denies bowel/bladder dysfunction. Symptoms are gradually worsening, over the past [address] Conde yesterday for Radiation Oncology. No overnight events Physical Exam Vital signs: Vital Signs 05/26/18 12:00 05/26/18 16:00 05/26/18 20:08 Temperature 97.3 F L 98 F 97.3 F L Pulse Rate 97 H 93 H 101 H Respiratory Rate 18 18 18 Blood Pressure 148/84 H 138/58 L 156/74 H Pulse Oximetry 97 96 93 L 05/27/18 00:18 Temperature 97.6 F Pulse Rate 101 H Respiratory Rate 20 Blood Pressure 145/76 H Pulse Oximetry 94 L Intake & Output 05/26/18 05/27/18 05/27/18 18:59 06:59 18:59 Intake Total 480 / 480 940 / 940 Output Total 900 / 900 Balance -420 / -420 940 / 940 Weight 165.5 kg Intake: Oral 480 / 480 940 / 940 Output: Urine 900 / 900 Other: # Incontinent Voids 3 3 Date of Last Bowel Movement 05/23/18 05/23/18 # Bowel Movements 0 0 - Constitutional mild distress, morbidly obese - Routine HEENT Exam Head: Present: normocephalic, atraumatic Eye: Present: EOMI, PERRL, normal accommodation ENT: Present: mucous membranes moist, oropharynx clear, nares patent, external ear normal, TM's clear bilaterally - Routine Neck Exam Present: supple, full ROM, trachea midline - Routine Respiratory Exam Present: CTA bilaterally - Routine Cardiovascular Exam Present: irregular rhythm - Routine Abdominal Exam Present: soft, normoactive bowel sounds - Routine Extremities Exam Comments: R lower extremity with venous stasis and ? phlebitis over anterior willams, improving - Routine Skin Exam Present: intact, warm, normal turgor - Routine Neurological Exam MS; AAOx3 Speech: fluent CNII-XII: intact, fundoscopic exam llimited due to pupillary constriction Motor 5/5 R=L in BUE RLE Iliopsoas #=/5 Quads- 3+/5 Ant. Tib 4+/5 EHL- 4+-5-/5 Sensory: +LT,+PP Cerebellum: WNL Gait: not tested - Detailed Neurological Exam: Coma Scale Eye Opening: Spontaneous Verbal Response: Oriented Motor Response: Obey commands Ivett Coma Scale Total: 15 - Routine Psychiatric Exam Present: normal affect, normal thought process, cooperative, good judgment Assessment and Plan - Plan 64 yo male with acute onset of BLE weakness with Rt>>Lt. Stable nEURO EXAM Right lower extremity shows possible early cellulitis,needs further workup T spine CT shows significant compression fracture with mild retropulsion although images are degraded due to morbid obesity. T and L-spine MRI with and without Gadolinium shows compression from complex T3 pathologic fracture Appreciate STAT Rad Onc Consult for XrT to T3 area which, he is starting today. Decadron 10 mg IV q6h for the next 3 days and then would taper No indication for Neurosurgical Intervention at this time, will sign off and be available as needed. Discussed with patient and Daughter. All questions were answered today.
[2018-05-27] MEDS: Insulin NovoLOG Aspart Correctional Sugar Inj SQ SCH ×4 (09:08→21:28)
[2018-05-27] MEDS: ALPRAZolam 0.5 MG Tablet PO PRN (09:19)
--- NOTE | 2018-05-27 17:04 | P.PNIM ---
Subjective Interval history: Bed appears in not acute distress at this time. However still has still with some pain in his back. No fever or chills no nausea or vomiting. Says he does not have much appetite and does not enjoy food. Physical Exam Vital signs: Last Vital Signs Temp 97.5 F L 05/27/18 12:00 Pulse 93 H 05/27/18 12:00 Resp 19 05/27/18 12:00 BP 163/97 H 05/27/18 12:00 Pulse Ox 93 L 05/27/18 12:00 Intake & Output 05/25/18 05/26/18 05/27/18 05/28/18 06:59 06:59 06:59 06:59 Intake Total 40 / 40 1420 / 1420 Output Total 900 / 900 Balance 40 / 40 520 / 520 Weight 163.6 kg 165.5 kg Narrative: GENERAL: This is a well-nourished, well-developed patient,appears in nad. CARDIOVASCULAR: Regular rate and rhythm without murmurs, gallops, or rubs. RESPIRATORY: Clear to auscultation. Breath sounds equal bilaterally. No wheezes , rales, or rhonchi. decreased air entry bilaterally due to poor inspiratory effort and body habitus GASTROINTESTINAL: Abdomen soft, non-tender, nondistended. Normal active bowel sounds MUSCULOSKELETAL: Extremities without clubbing, cyanosis, or edema. NEURO: Alert & Oriented x4. CN grossly normal. Strength grossly normal. Normal speech. Results Labs CBC & Chem 7: 05/26/18 04:33 05/26/18 04:33 Assessment and Plan Plan Acute pathological fracture of T3 Bilateral lower extremity weakness and numbness with inability to bear weight. Right more than the left. Secondary to above. Peripheral edema with right lower extremity greater than the left. DVT studies -2 weeks ago. Bilateral lower extremity mild healed ulcerations. Patient reports chronicity. Reports improvement as compared to prior. Morbid obesity BMI of 45. Diet and exercise. 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 Status post excision. Status post radiation therapy. 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 Status post chemotherapy first round 2 weeks ago. Next due on Wednesday. Also had radiation therapy to the lung. Diabetes Sleep apnea. On CPAP at home. Patient was evaluated by neurosurgery. We will follow recommendations. Received Decadron 10 mg IV q6hrs per neuro recommendations. GI prophylaxis while on steroids. Undergoing palliative xrt spine 30 Gy ten fractions. Resume home meds. DVT prophylaxis on Lovenox. Consult PT/OT Discussed with the patient, family very supportive at bedside, nurse Likely needs rehab at [place] Progress Note: Quality VTE Deep Vein Thrombosis/Pulmonary Embolism Present on Admission: No
[2018-05-27] MEDS: Enoxaparin Inj 40 MG/0.4 ML Syringe SQ SCH (18:28)
[2018-05-28] MEDS: ALPRAZolam 0.5 MG Tablet PO PRN ×2 (02:21→18:52)
[2018-05-28] MEDS: Insulin NovoLOG Aspart Correctional Sugar Inj SQ SCH ×4 (08:08→22:02)
[2018-05-28] MEDS: Morphine Inj 4 MG/ML Vial IV.PUSH PRN (08:19)
--- NOTE | 2018-05-28 09:17 | P.PNIM ---
Subjective Interval history: Patient is in bed says he feels worse than yesterday. Says he is not able to move much his left leg or the right leg. Pain in his back is fairly controlled by medications. Not eating much no appetite. No nausea or vomiting. No fever or chills. Patient will like to have physical therapy. Physical Exam Vital signs: Last Vital Signs Temp 97.3 F L 05/28/18 04:59 Pulse 96 H 05/28/18 04:59 Resp 17 05/28/18 04:59 BP 161/75 H 05/28/18 04:59 Pulse Ox 92 L 05/28/18 04:59 Intake & Output 05/26/18 05/27/18 05/28/18 05/29/18 06:59 06:59 06:59 06:59 Intake Total 40 / 40 1420 / 1420 500 / 500 Output Total 900 / 900 0 / 0 Balance 40 / 40 520 / 520 500 / 500 Weight 163.6 kg 165.5 kg 165.5 kg Narrative: GENERAL: This is a well-nourished, well-developed patient,appears in nad. CARDIOVASCULAR: Regular rate and rhythm without murmurs, gallops, or rubs. RESPIRATORY: Clear to auscultation. Breath sounds equal bilaterally. No wheezes , rales, or rhonchi. decreased air entry bilaterally due to poor inspiratory effort and body habitus GASTROINTESTINAL: Abdomen soft, non-tender, nondistended. Normal active bowel sounds MUSCULOSKELETAL: Extremities without clubbing, cyanosis, or edema. NEURO: Alert & Oriented x4. CN grossly normal. Strength grossly normal. Normal speech. Results Labs CBC & Chem 7: 05/26/18 04:33 05/26/18 04:33 Assessment and Plan Plan Acute pathological fracture of T3 Bilateral lower extremity weakness and numbness with inability to bear weight. Right more than the left. Secondary to above. Peripheral edema with right lower extremity greater than the left. DVT studies -2 weeks ago. Bilateral lower extremity mild healed ulcerations. Patient reports chronicity. Reports improvement as compared to prior. Morbid obesity BMI of 45. Diet and exercise. 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 Status post excision. Status post radiation therapy. 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 Status post chemotherapy first round 2 weeks ago. Next due on Wednesday. Also had radiation therapy to the lung. Diabetes Sleep apnea. On CPAP at home. Patient was evaluated by neurosurgery. We will follow recommendations. Received Decadron 10 mg IV q6hrs per neuro recommendations. GI prophylaxis while on steroids. Undergoing palliative xrt spine 30 Gy ten fractions. Resume home meds. DVT prophylaxis on Lovenox. Consult PT/OT Discussed with the patient, family very supportive at bedside, nurse Likely needs rehab at [place] Progress Note: Quality VTE Deep Vein Thrombosis/Pulmonary Embolism Present on Admission: No
[2018-05-28] MEDS: Enoxaparin Inj 40 MG/0.4 ML Syringe SQ SCH (18:15)
--- NOTE | 2018-05-29 10:53 | P.PNNS ---
Subjective Interval history: May 29, 2018 Apparently the patient has remained stable overnight however over the last 2 days he has developed inability to move both lower extremities with increasing numbness. He also has been incontinent of urine. This is despite being on parenteral steroids and undergoing the first radiation therapy treatment for the thoracic spinal metastasis 2 days ago. Neurosurgery had signed off and we have been reconsulted. Physical Exam Vital signs: Vital Signs 05/28/18 12:00 05/28/18 16:00 05/28/18 19:20 Temperature 97.5 F L 97.2 F L 97.3 F L Pulse Rate 99 H 98 H 101 H Respiratory Rate 20 22 20 Blood Pressure 155/106 H 150/79 H 152/83 H Pulse Oximetry 93 L 94 L 94 L 05/28/18 23:40 05/29/18 02:00 05/29/18 05:05 Temperature 97.1 F L 97.4 F L Pulse Rate 102 H 103 H Respiratory Rate 20 17 19 Blood Pressure 127/73 146/88 H Pulse Oximetry 93 L 93 L 05/29/18 05:56 05/29/18 08:00 Temperature 97.1 F L Pulse Rate 106 H Respiratory Rate 16 16 Blood Pressure 162/83 H Pulse Oximetry 92 L Intake & Output 05/28/18 05/29/18 05/29/18 18:59 06:59 18:59 Intake Total 800 / 800 Balance 800 / 800 Weight 165.5 kg Intake: Oral 800 / 800 Other: # Incontinent Voids 4 2 Date of Last Bowel Movement 05/24/17 05/24/17 # Bowel Movements 0 - Routine Neurological Exam May 29, 2018 The patient is lying in bed as I enter the room. He is in no acute distress. His family is in the room with him. On neurological examination, mental status testing finds him to be awake and alert. He is oriented by 3. Cognitive function is grossly intact. His speech is fluent. Cranial nerve testing 2 through 12 is grossly intact. Motor examination finds him essentially paraplegic there is may be some trace hip flexion on the left. Sensory examination reveals decrease to light touch from T6 down bilaterally. Position sense is impaired. Deep tendon reflexes reveal absent knee and ankle jerks except on the left with the left knee jerk is 3+. Assessment and Plan - Plan 64 yo male with acute onset of BLE weakness with Rt>>Lt. Stable nEURO EXAM Right lower extremity shows possible early cellulitis,needs further workup T spine CT shows significant compression fracture with mild retropulsion although images are degraded due to morbid obesity. T and L-spine MRI with and without Gadolinium shows compression from complex T3 pathologic fracture Appreciate STAT Rad Onc Consult for XrT to T3 area which, he is starting today. Decadron 10 mg IV q6h for the next 3 days and then would taper No indication for Neurosurgical Intervention at this time, will sign off and be available as needed. Discussed with patient and Daughter. All questions were answered today. May 29, 2018 The patient has developed a profound neurological deficit essentially paraplegic at this point. He has an incomplete sensory loss. He is incontinent of urine. Therapeutic options were discussed with the patient and the family. Surgical decompression was offered. Specifically bilateral laminectomies of T2-T3 and T4 with resection of tumor and spinal cord decompression. The risks, benefits, limitations, complications, and alternatives to surgery were discussed and enumerated and no guarantees were afforded. They understood this and are requesting surgical intervention. Informed consent has been obtained. The patient will be brought to the operating emergently. The pre-operative orders have been submitted.
[2018-05-29 11:26] LABS: Baso % (Auto) 0.2 % (0.0-2.0); Hemoglobin 13.8 gm/dL (13.0-17.0); Lymph # (Auto) 0.8 th/mm3 (1.0-4.8); Lymph % (Auto) 3.9 % (9.0-44.0); Mean Corpuscular HGB Conc 32.8 % (32.0-36.0); Mean Corpuscular Hemoglobin 30.2 pg (27.0-34.0); Mean Corpuscular Volume 92.3 fL (80.0-100.0); Mono # (Auto) 1.4 th/mm3 (0.0-0.9); Neut # (Auto) 17.5 th/mm3 (1.8-7.7); Neut % (Auto) 88.9 % (16.0-70.0); Platelet Count 307 th/mm3 (150-450); Red Blood Count 4.56 mil/mm3 (4.50-5.90); Red Cell Distribution Width 15.1 % (11.6-17.2); White Blood Count 19.6 th/mm3 (4.0-11.0)
--- NOTE | 2018-05-29 11:33 | P.PNIM ---
Subjective Interval history: Going for surgery Anxious, will give ativan No fever or chills. Physical Exam Vital signs: Last Vital Signs Temp 97.1 F L 05/29/18 08:00 Pulse 106 H 05/29/18 08:00 Resp 16 05/29/18 08:00 BP 162/83 H 05/29/18 08:00 Pulse Ox 92 L 05/29/18 08:00 Intake & Output 05/27/18 05/28/18 05/29/18 05/30/18 06:59 06:59 06:59 06:59 Intake Total 1420 / 1420 500 / 500 800 / 800 Output Total 900 / 900 0 / 0 Balance 520 / 520 500 / 500 800 / 800 Weight 165.5 kg 165.5 kg 165.5 kg Narrative: GENERAL: This is a well-nourished, well-developed patient,appears in nad. CARDIOVASCULAR: Regular rate and rhythm without murmurs, gallops, or rubs. RESPIRATORY: Clear to auscultation. Breath sounds equal bilaterally. No wheezes , rales, or rhonchi. decreased air entry bilaterally due to poor inspiratory effort and body habitus GASTROINTESTINAL: Abdomen soft, non-tender, nondistended. Normal active bowel sounds MUSCULOSKELETAL: Extremities without clubbing, cyanosis, or edema. NEURO: Alert & Oriented x4. CN grossly normal. Strength grossly normal. Normal speech. Results Labs CBC & Chem 7: 05/29/18 10:57 05/29/18 10:57 Assessment and Plan Plan Acute pathological fracture of T3 Bilateral lower extremity weakness and numbness with inability to bear weight. Right more than the left. Secondary to above. Peripheral edema with right lower extremity greater than the left. DVT studies -2 weeks ago. Bilateral lower extremity mild healed ulcerations. Patient reports chronicity. Reports improvement as compared to prior. Morbid obesity BMI of 45. Diet and exercise. 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 Status post excision. Status post radiation therapy. 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 Status post chemotherapy first round 2 weeks ago. Next due on Wednesday. Also had radiation therapy to the lung. Diabetes Sleep apnea. On CPAP at home. Anxiety. Ativan , resume home meds Plan for surgery 05/29/[address] Hardy neurosurgery Patient is anxious, received ativan Patient was evaluated by neurosurgery. We will follow recommendations. Received Decadron 10 mg IV q6hrs per neuro recommendations. GI prophylaxis while on steroids. Undergoing palliative xrt spine 30 Gy ten fractions. Resume home meds. DVT prophylaxis on Lovenox. Consult PT/OT Discussed with the patient, family very supportive at bedside, nurse Likely needs rehab at [place] Progress Note: Quality VTE Deep Vein Thrombosis/Pulmonary Embolism Present on Admission: No
[2018-05-29 11:40] LABS: Activated Partial Thrombo Time 23.5 sec (23.4-31.7); INR 1.1 Ratio; Prothrombin Time 10.7 sec (9.8-11.6)
[2018-05-29] MEDS ORDERED: Thrombin Topical Soln 5,000 UNIT Vial TOPICAL ONE (11:44)
[2018-05-29] MEDS ORDERED: Gelatin Size 100 Topical Foam ONE (11:45)
[2018-05-29] MEDS ORDERED: ceFAZolin Inj 1 GM Vial (Addvantage) IV.SIG ONE (11:46)
[2018-05-29] MEDS ORDERED: Metoprolol Tartrate 25 MG Tablet PO SCH (11:53)
[2018-05-29] MEDS ORDERED: Chlorhexidine Gluconate 2% 1 Pack (2 Cloths) TOPICAL SCH (11:53)
[2018-05-29] MEDS ORDERED: ceFAZolin 2 GM Premix Inj 2 GM/50 ML PIGGYBACK IV.SIG ONE (12:00)
[2018-05-29] MEDS ORDERED: Sodium Chlor 0.9% Inj 500 ML IV.SIG SCH (12:00)
[2018-05-29 12:03] LABS: Calcium 9.3 mg/dL (8.5-10.1); Carbon Dioxide 29.1 meq/L (21.0-32.0); Potassium 4.3 meq/L (3.5-5.1)
[2018-05-29] MEDS: Insulin NovoLOG Aspart Correctional Sugar Inj SQ SCH ×3 (12:21→21:26)
[2018-05-29] MEDS ORDERED: Bupivacaine/Epinephrine 0.5% Inj 50 ML Vial ONE (13:52)
--- NOTE | 2018-05-29 14:19 | P.CONCC ---
History of Present Illness Service: Critical care medicine Consult date: 05/29/18 Requesting Physician: Nelson Pena Reason for Consult: Critical care management Primary Care Provider: Anuel Watson MD Chief Complaint: Pathologic fracture T3 with spinal cord compression History of Present Illness: This 62-year-old gentleman has widely metastatic squamous cell carcinoma including involvement of the third thoracic vertebral body resulting in a pathologic fracture of T3 and soft tissue bulging compressing the adjacent spinal cord. On admission to the hospital he had some stability issues with walking but suddenly now he is functionally paraplegic below that level. The primary site of this metastatic process may be the left axilla or the lung; unclear from the chart. Both lung arteaga are littered with metastatic lesions. He is on his way to the operating room now for emergency decompression of the cord and stabilization of the upper thoracic spine and I am seen him in preparation for his postoperative care in the intensive care unit. INR is 1.1 and platelet count is 307,000. The patient noticeably hypoventilates due to morbid obesity and chest wall discomfort. Glucose intolerance is observed, exacerbated by pulse steroid therapy. The patient is on chronic narcotic analgesics at home. 1800 hrs. : Back from OR after T2 - T4 bilateral laminectomies. Neosynephrine infusion. 5 liters crystalloid. Mechanical ventilation via orotracheal intubation. Review of Systems Chronic shortness of breath and back pain. Chest wall pain with respirations. Difficulty controlling blood sugar. [facility] - History History Provided By: Patient - Medical History Medical History: Medical History (Last Reviewed 05/27/18 @ 08:18 by Venessa Villalpando) Abnormal biopsy result Cancer, skin, squamous cell Diabetes Lung cancer - Tobacco History Second Hand Smoke Exposure: No Smoking Status: Never smoker - Alcohol History How Often Do You Have a Drink Containing Alcohol: Never - Substance Use History Substance History: No History of Abuse - Travel History Recent Travel in the [place] Within the Last 8 Weeks: No Recent Travel Out of the Country Within the Last 8 Weeks: No - Immunization History Tetanus Immunization: >5 Years Hx Influenza Vaccine This Season: No Medications and Allergies Active Medications: Active Medications Acetaminophen (Tylenol) 650 mg PO Q4H PRN PRN Reason: Headache, fever, pain 1-4 Al Hydroxide/Mg Hydroxide (Milk Of Magnesia Liq) 30 ml PO Q12H PRN PRN Reason: Mild Constipation Alprazolam (Xanax) 0.5 mg PO BID PRN PRN Reason: Pain Last Admin: 05/28/18 18:52 Dose: 0.5 mg Bisacodyl (Dulcolax Supp) 10 mg RECTAL DAILY PRN PRN Reason: SEVERE CONSITIPATION Chlorhexidine Gluconate (Chlorhexidine 2% Cloth) 3 pack TOPICAL MEDICAL RECORD SPECIALIST [facility] Stop: 06/01/18 11:52 Dexamethasone Sodium Phosphate (Decadron Inj) 6 mg IV.PUSH Q4H [facility] Last Admin: 05/29/18 11:42 Dose: 6 mg Dextrose (D50w Vial) 50 ml IV.PUSH UNSCH PRN PRN Reason: PER HYPOGLYCEMIA PROTOCOL Enoxaparin Sodium (Lovenox Inj) 40 mg SQ Q24H [facility] Last Admin: 05/28/18 18:15 Dose: 40 mg Glucagon (Glucagon Inj) 1 mg OTHER PRN PRN PRN Reason: for Hypoglycemia Protocol Lactated Ringer's (Lr 1000 Ml Inj) 1,000 mls @ 30 mls/hr IV.SIG .Q24H [facility] Stop: 05/30/18 11:59 Sodium Chloride (Ns Inj) 500 mls @ 30 mls/hr IV.SIG .Q10H [facility] Insulin Aspart (Novolog Insulin Correctional Sugar Inj) 0 unit SQ [facility]; Protocol Last Admin: 05/29/18 12:21 Dose: Not Given Lactulose (Lactulose Liq) 30 ml PO DAILY PRN PRN Reason: SEVERE CONSITIPATION Last Admin: 05/29/18 06:29 Dose: 30 ml Metoprolol Tartrate (Lopressor) 25 mg PO MEDICAL RECORD SPECIALIST [facility] Stop: 06/01/18 11:52 Morphine Sulfate (Morphine Inj) 2 mg IV.PUSH Q3H PRN PRN Reason: PAIN SCALE 1 TO 10 Last Admin: 05/28/18 08:19 Dose: 2 mg Ondansetron HCl (Zofran Inj) 4 mg IV.PUSH Q6H PRN PRN Reason: NAUSEA OR VOMITING Oxycodone HCl (Roxicodone) 10 mg PO Q4H PRN PRN Reason: PAIN 1-10 IF TOLERATING PO Last Admin: 05/29/18 06:27 Dose: 10 mg Pantoprazole Sodium (Protonix) 40 mg PO DAILY [facility] Last Admin: 05/29/18 12:23 Dose: Not Given Povidone Iodine (Betadine 5% Antisepsis Kit) 1 applicatio EACH [facility] [employer] SPECIALIST [facility] Stop: 06/01/18 11:52 Sennosides (Senokot) 17.2 mg PO Q12H PRN PRN Reason: Moderate Constipation Last Admin: 05/27/18 17:26 Dose: 17.2 mg Sodium Chloride (Ns Flush) 2 ml IV.FLUSH BID [facility] Last Admin: 05/29/18 12:22 Dose: 2 ml Sodium Chloride (Ns Flush) 2 ml IV.FLUSH PRN PRN PRN Reason: FLUSH AFTER USING IV ACCESS Allergies Allergy/AdvReac Type Severity Reaction Status Date / Time No Known Allergies Allergy Verified 05/25/18 13:20 Home Medications Medication Instructions Recorded Confirmed Type acetaminophen [Tylenol Extra 500 mg PO Q6H PRN 04/20/18 05/25/18 History Strength] ibuprofen 400 mg PO Q4-6H PRN 04/20/18 05/25/18 History oxycodone 10 mg PO Q4-6H PRN 04/20/18 05/25/18 History alprazolam 0.5 mg PO BID PRN 05/25/18 05/25/18 History carboplatin mg/m2 IV Q4W 05/25/18 History metformin 850 mg PO BID 05/25/18 05/25/18 History paclitaxel mg/m2/hr IV 05/25/18 History Physical Exam Vital signs: Vital Signs 05/28/18 16:00 05/28/18 19:20 05/28/18 23:40 Temperature 97.2 F L 97.3 F L 97.1 F L Pulse Rate 98 H 101 H 102 H Respiratory Rate 22 20 20 Blood Pressure 150/79 H 152/83 H 127/73 Pulse Oximetry 94 L 94 L 93 L 05/29/18 02:00 05/29/18 05:05 05/29/18 05:56 Temperature 97.4 F L Pulse Rate 103 H Respiratory Rate 17 19 16 Blood Pressure 146/88 H Pulse Oximetry 93 L 05/29/18 08:00 05/29/18 12:00 Temperature 97.1 F L 97.8 F Pulse Rate 106 H 106 H Respiratory Rate 16 16 Blood Pressure 162/83 H 143/84 H Pulse Oximetry 92 L 92 L Intake & Output 05/28/18 05/29/18 05/29/18 18:59 06:59 18:59 Intake Total 800 / 800 Balance 800 / 800 Weight 165.5 kg Intake: Oral 800 / 800 Other: # Incontinent Voids 4 2 Date of Last Bowel Movement 05/24/17 05/24/17 05/24/18 # Bowel Movements 0 Narrative: GENERAL: Morbidly obese legs man CARDIOVASCULAR: Regular rate and rhythm without murmurs, gallops, or rubs. RESPIRATORY: Clear to auscultation. Breath sounds equal bilaterally. No wheezes , rales, or rhonchi. Decreased breath sounds bases due to body habitus. CHEST: Port left upper chest GASTROINTESTINAL: Abdomen soft, non-tender, nondistended. Normal active bowel sounds Back: Two 2x3 cm pressure wounds sacral region. MUSCULOSKELETAL: Extremities without clubbing, cyanosis. 1+ bilateral leg and foot edema. Bilateral lower extremity stasis dermatitis. NEURO: Prior to surgery bilateral lower extremity movement was very weak. Upper extremities 5/5. Now heavily sedated on mechanical ventilation. - Urinary Catheter Management 1 Cath placed during this visit: yes Reason for continuing: Hourly intake/output Insertion date: 05/29/18 Insertion time: 13:20 Assessment and Plan - Problem List (1) 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 Code(s): M84.50XA - Pathological fracture in neoplastic disease, unspecified site, initial encounter for fracture Status: Acute (2) Squamous cell carcinoma, metastatic Code(s): C79.9 - Secondary malignant neoplasm of unspecified site Status: Chronic (3) Obesity hypoventilation syndrome Code(s): E66.2 - Morbid (severe) obesity with alveolar hypoventilation Status : Acute (4) Diabetes mellitus type 2 in obese Code(s): E11.69 - Type 2 diabetes mellitus with other specified complication; E66.9 - Obesity, unspecified Status: Acute (5) Paraplegia, incomplete Code(s): G82.22 - Paraplegia, incomplete Status: Acute (6) Morbid obesity with BMI of 45.0-49.9, adult Code(s): E66.01 - Morbid (severe) obesity due to excess calories; Z68.42 - Body mass index (BMI) 45.0-49.9, adult Status: Acute (7) Respiratory failure following trauma and surgery Code(s): J95.821 - Acute postprocedural respiratory failure Status: Acute - Assessment and Plan Plan: Plan: 1. Mechanical ventilation PRVC mode. 2. PEEP 5 3. Maintenance IV fluid 4. Stat hemoglobin 5. Fentanyl analgesia 6. Propofol sedation 7. SCDs 8. Start Lovenox 40 subcu daily tomorrow 9. Pepcid for GI ulcer prophylaxis 10. Empty LUCHO bulb as needed Oral impression: This morbidly obese man is critically ill with respiratory failure following emergency decompression of the spinal cord at the T3 level. He was functionally paraplegic prior to the surgery and is is anticipated that he will have a considerable lower extremity neurologic deficit. Critical care time 40 minutes aside from procedures (1) 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 Qualifiers: Site of pathological fracture: vertebra Encounter type: initial encounter Qualified Code(s): M84.58XA - Pathological fracture in neoplastic disease, other specified site, initial encounter for fracture
--- NOTE | 2018-05-29 17:36 | P.PCN ---
Date of procedure: 05/29/18 Pre-op diagnosis: Thoracic Spinal Metastasis with Spinal Cord Compression Procedure: Bilateral Thoracic Two through Thoracic Four Laminectomies with Resection of Epidural Tumor and Spinal Cord Decompression Anesthesia: DO Surgeon: Nelson Pena Pattern Room Attendant: Carolin Ortiz Rn Estimated blood loss (mL): 1,000 Pathology: other (Thoracic T2-T4 Lamina and Spinous Processes and Epidural Tumor ) Condition: stable Disposition: ICU
[2018-05-29] MEDS ORDERED: Bisacodyl 10 MG Supp RECTAL PRN ×2 (17:38→17:45)
--- NOTE | 2018-05-29 17:51 | XR ---
EXAM DATE: 05/29/2018 5:46 PM EST AGE/SEX: 62 years / Male INDICATIONS: T2-T4 laminectomy. CLINICAL DATA: This is the patient's initial encounter. Patient reports that signs and symptoms have been present for 1 day and indicates a pain score of Nonresponsive. MEDICAL/SURGICAL HISTORY: Non-responsive. Non-responsive. COMPARISON: No prior exams available for comparison. FINDINGS: Intraoperative examination is performed for localization. CONCLUSION: Intraoperative localizing study. Electronically signed by: Brenda Perry MD Board Certified Radiologist 05/29/2018 5:50 PM EST
[2018-05-29] MEDS ORDERED: Propofol Inj 500 MG/50 ML Vial ONE (18:09)
[2018-05-29 18:57] LABS: ABG Base Excess -2.9 mmol/L (-2-2); ABG PCO2 58 mmHg (38-42); ABG PO2 142 mmHg (61-120)
[2018-05-29] MEDS ORDERED: Albumin Human 5% Inj 500 ML IV.SIG ONE (18:57)
[2018-05-29] MEDS ORDERED: Phenylephrine Inj 80 MG in Sodium Chlor 0.9% Inj 492 ML IV.CONT PRN (19:00)
[2018-05-29] MEDS ORDERED: Phenylephrine Inj 80 MG in Dextrose 5% in Water Inj 492 ML IV.CONT PRN ×2 (19:00)
[2018-05-29] MEDS ORDERED: Norepinephrine Inj 4 MG in Sodium Chlor 0.9% Inj 246 ML IV.SIG PRN (19:00)
[2018-05-29] MEDS ORDERED: fentaNYL Citrate Inj 100 MCG/2 ML Ampul ONE ×2 (19:05)
[2018-05-29] MEDS: Sod Chloride 0.9% Inj 1,000 ML IV.CONT SCH (19:10)
[2018-05-29] MEDS: Chlorhexidine 0.12% Oral Kit 15 ML UDC OROPHARYNG SCH (19:22)
[2018-05-29] MEDS: ceFAZolin 2 GM Premix Inj 2 GM/50 ML PIGGYBACK IV.SIG SCH (19:22)
[2018-05-29] MEDS: Propofol 1000 mg/100 ml Inj 1,000 MG/100 ML BOTTLE IV.CONT PRN ×2 (19:24→23:53)
--- NOTE | 2018-05-29 19:51 | XR ---
EXAM DATE: 05/29/2018 7:33 PM EST AGE/SEX: 62 years / Male INDICATIONS: Tube and line position. CLINICAL DATA: This is the patient's subsequent encounter. Patient reports that signs and symptoms h ave been present for 1 day and indicates a pain score of Nonresponsive. MEDICAL/SURGICAL HISTORY: . Metastatic lung cancer . Thoracic laminectomy. [place] [facility] [place]. . FINDINGS: 2 AP views of the chest. Endotracheal tube is in place with the tip 3 cm above the audrey. Left-sided [id number] remains in place. Nasogastric tube is now seen with the tip in the stomach. Lung volum es are low. Patchy opacity in the lower lungs bilaterally. No evidence of pneumothorax or pleural eff usion. Likely drainage catheter is looped in the region of the left side of the mediastinum. CONCLUSION: 1. Multiple lines and tubes in place. Postsurgical findings of the left mid thorax with likely drain age catheter the left-sided mediastinum. 2. Low lung volumes with patchy bilateral lower lung zone opacity. No evidence of pleural effusion o r pneumothorax. Electronically signed by: Ranjit Oropeza MD Board Certified Radiologist 05/29/2018 7:50 PM EST
[2018-05-29] MEDS: fentaNYL 10 mcg/mL Premix Drip 2,500 MCG/250 ML BAG IV.SIG PRN (20:00)
--- NOTE | 2018-05-29 20:07 | MP ---
cc: Nelson Pena MD DATE OF OPERATION: 05/29/2018 PREOPERATIVE DIAGNOSIS: Thoracic spinal metastasis with spinal cord compression. POSTOPERATIVE DIAGNOSIS: Thoracic spinal metastasis with spinal cord compression. PROCEDURE PERFORMED: Bilateral thoracic 2 through thoracic 4 laminectomies with resection of epidural tumor and spinal cord decompression. SURGEON: Nelson Pena MD DRUG AND ALCOHOL COUNSELLOR: CLARENCE. ANESTHESIA: General endotracheal. ESTIMATED BLOOD LOSS: 1000 mL. REPLACEMENT: None needed. SPECIMENS: Spinous processes and lamina from T2 through T4 were submitted for pathological diagnosis as well as epidural tumor. COMPLICATIONS: None. DISPOSITION: To ICU, stable. INDICATIONS FOR PROCEDURE: This is the patient who presented with the above-stated diagnosis and initially was seen and was felt to be neurologically stable and began radiation therapy for thoracic spinal metastasis 2 days ago. In any case, his neurological condition deteriorated and the patient became essentially paraplegic with an incomplete T6 sensory level. This is despite being maintained on parenteral steroids. Therapeutic options were discussed with the patient and his family. The risks, benefits, limitations, complications, and alternatives to the above-stated operation were discussed and enumerated and no guarantees were afforded. He understood this and requested surgical intervention. Informed consent was obtained and the patient was brought to the operating room urgently. DESCRIPTION OF PROCEDURE: The patient was brought to the operating room on his bed. He was intubated and after sufficient plane of general endotracheal anesthesia was obtained, a Schmidt catheter was placed as well as sequential compression devices. He was then placed in the prone position on gel pads and pressure points were padded appropriately. The skin over his cervical and thoracic region was then prepped and draped in the sterile fashion and using C-arm fluoroscopic guidance, the location of the spinous process from T1 through T5 were localized and the skin was marked. In any case, this area was prepped and draped in a sterile fashion and appropriate timeout procedure was performed. A midline incision was made extending from T1-T5. The incision was brought down through skin and subcutaneous tissue. Prior to making incision, the skin and subcutaneous tissue was infiltrated with 0.5% bupivacaine with epinephrine. Incision was brought down through skin and subcutaneous tissue. Hemostasis was obtained with the use of monopolar coagulation. The fascia was incised and a subperiosteal dissection was performed, stripping the paraspinal muscle, exposing the spinous processes and lamina of T1, T2, T3, T4 and the upper most portion of T5 lamina was exposed bilaterally. The paraspinal muscles were then retracted using a self-retaining angled cerebellar and Abiolaon-Satya retractors. C-arm fluoroscopy was again used to determine that we indeed exposed the appropriate levels. After so doing and documenting the appropriate levels were exposed, the spinous process and lamina of T3 as well as T4 and T2 were removed using Leksell and Kerrison rongeurs as well as Bety hand drill with a matchstick bur. In any case, laminectomy was performed at each of these levels bilaterally. Bone was submitted for pathological diagnosis. There was found to be epidural tumor located laterally at T3 and T4, more so on the left than the right. A partial resection of the epidural tumor was performed. An access was gained to the ventral epidural space and the spinal canal and there was found to be a tumor extending into the vertebral body of T3. Multiple biopsies were obtained of the epidural tumor and submitted for pathological diagnosis. The wound was then copiously irrigated with warm bacitracin irrigation and hemostasis was meticulous. Significant bleeding was encountered from the bone as well as from the epidural tumor and meticulous hemostasis obtained with use of bipolar coagulation as well as thrombin-soaked Gelfoam and Surgiflo. Subcutaneous fat graft was harvested and placed over the exposed dura and DuraSeal was then placed over the fat graft. Through a separate stab wound, a #7-Burkinan flat LUCHO drain was placed into the epidural space. It was secured to the skin using a 3-0 nylon suture. The wound was then approximated in layers. The muscle was approximated using multiple interrupted sutures of 0 Vicryl. The fascia was approximated using multiple interrupted sutures of 0 Vicryl. The subcutaneous tissue was then approximated using multiple inverted interrupted sutures of 2-0 Vicryl. The skin was approximated using skin arthur. Antibiotic ointment and sterile dressing were applied. At the completion of procedure, sponge count, needle count as well as cottonoid count was correct. Estimated blood loss was 1000 mL. Replacement was none. Complications were none. The patient was then taken to the ICU in stable condition. MD LENKA Lopez/carlin/zeus , 06:31 PM , 06:42 PM
[2018-05-29 20:14] LABS: Hemoglobin 11.1 gm/dL (13.0-17.0); Mean Corpuscular HGB Conc 31.8 % (32.0-36.0); Mean Corpuscular Hemoglobin 29.5 pg (27.0-34.0); Mean Corpuscular Volume 92.8 fL (80.0-100.0); Mean Platelet Volume 7.8 fL (7.0-11.0); Platelet Count 309 th/mm3 (150-450); Red Blood Count 3.77 mil/mm3 (4.50-5.90); Red Cell Distribution Width 14.7 % (11.6-17.2); White Blood Count 31.6 th/mm3 (4.0-11.0)
[2018-05-29] MEDS: Senna/Docusate Sodium 8.6/50 MG Tablet PO SCH (20:27)
[2018-05-29 20:41] LABS: Calcium 8.3 mg/dL (8.5-10.1); Carbon Dioxide 24.7 meq/L (21.0-32.0)
[2018-05-29 20:48] LABS: Lymphocytes 3 % (9-44); Metamyelocytes 4 % (0-1); Monocytes 1 % (0-8)
[2018-05-29 20:49] LABS: Platelet Estimate Normal (Normal)
[2018-05-29] MEDS ORDERED: Senna/Docusate Sodium 8.6/50 MG Tablet PO SCH (21:00)
[2018-05-29] MEDS ORDERED: Sod Chloride 0.9% Inj 1,000 ML IV.SIG ONE (21:15)
[2018-05-30] MEDS: Oral Hygiene Kit OROPHARYNG SCH ×2 (00:33→05:02)
[2018-05-30] MEDS: Propofol 1000 mg/100 ml Inj 1,000 MG/100 ML BOTTLE IV.CONT PRN ×2 (03:40→07:01)
[2018-05-30] MEDS: ceFAZolin 2 GM Premix Inj 2 GM/50 ML PIGGYBACK IV.SIG SCH ×2 (05:01→11:40)
[2018-05-30 05:02] LABS: Baso # (Auto) 0.1 th/mm3 (0.0-0.2); Baso % (Auto) 0.2 % (0.0-2.0); Hematocrit 31.7 % (39.0-51.0); Hemoglobin 10.2 gm/dL (13.0-17.0); Lymph # (Auto) 0.5 th/mm3 (1.0-4.8); Lymph % (Auto) 1.7 % (9.0-44.0); Mean Corpuscular HGB Conc 32.1 % (32.0-36.0); Mean Corpuscular Hemoglobin 29.9 pg (27.0-34.0); Mean Corpuscular Volume 93.3 fL (80.0-100.0); Mono % (Auto) 3.4 % (0.0-8.0); Neut # (Auto) 29.1 th/mm3 (1.8-7.7); Neut % (Auto) 94.7 % (16.0-70.0); Platelet Count 277 th/mm3 (150-450); Red Cell Distribution Width 14.9 % (11.6-17.2); White Blood Count 30.7 th/mm3 (4.0-11.0)
[2018-05-30 05:25] LABS: Calcium 8.1 mg/dL (8.5-10.1); Carbon Dioxide 27.5 meq/L (21.0-32.0); Potassium 4.6 meq/L (3.5-5.1)
[2018-05-30 05:37] LABS: ABG PCO2 38 mmHg (38-42); ABG PO2 130 mmHg (61-120)
[2018-05-30 05:49] LABS: Lymphocytes 2 % (9-44); Monocytes 2 % (0-8)
[2018-05-30 05:50] LABS: Platelet Estimate Normal (Normal); Platelet Morphology Normal (Normal)
[2018-05-30] MEDS: Sod Chloride 0.9% Inj 1,000 ML IV.CONT SCH (07:01)
[2018-05-30] MEDS: fentaNYL 10 mcg/mL Premix Drip 2,500 MCG/250 ML BAG IV.SIG PRN (07:27)
[2018-05-30] MEDS ORDERED: Potassium Chloride 25 MEQ Effervescent Tablet PO PRN (08:18)
[2018-05-30] MEDS ORDERED: Potassium Phosphate 500 MG Soluble Tablet PO PRN ×2 (08:18)
[2018-05-30] MEDS ORDERED: Potassium Phosphate Inj 30 MMOL in Sodium Chlor 0.9% Inj 250 ML IV.SIG PRN (08:18)
[2018-05-30] MEDS ORDERED: Magnesium Oxide 400 MG Tablet PO PRN (08:18)
[2018-05-30] MEDS ORDERED: Magnesium Sulfate Inj 4 GM in Sodium Chlor 0.9% Inj 92 ML IV.SIG PRN (08:18)
[2018-05-30] MEDS ORDERED: Potassium Chlor 20 mEq Premix 20 MEQ/100 ML PIGGYBACK IV.SIG PRN ×2 (08:18)
[2018-05-30] MEDS ORDERED: Magnesium Sulfate Inj 2 GM in Sodium Chlor 0.9% Inj 96 ML IV.SIG PRN (08:18)
[2018-05-30] MEDS ORDERED: Potassium Chlor 40 mEq Premix 40 MEQ/100 ML PIGGYBACK IV.SIG PRN ×2 (08:18)
[2018-05-30] MEDS ORDERED: Sodium Phosphate Inj 30 MMOL in Sodium Chlor 0.9% Inj 250 ML IV.SIG PRN (08:18)
[2018-05-30] MEDS ORDERED: Dexmedetomidine Inj 200 MCG in Sodium Chlor 0.9% Inj 48 ML IV.CONT PRN (08:23)
--- NOTE | 2018-05-30 08:59 | P.PNCC ---
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 On admission to the hospital he had some stability issues with walking but suddenly now he is functionally paraplegic below that level. The primary site of this metastatic process may be the left axilla or the lung; unclear from the chart. Both lung arteaga are littered with metastatic lesions. He is on his way to the operating room now for emergency decompression of the cord and stabilization of the upper thoracic spine and I am seen him in preparation for his postoperative care in the intensive care unit. INR is 1.1 and platelet count is 307,000. The patient noticeably hypoventilates due to morbid obesity and chest wall discomfort. Glucose intolerance is observed, exacerbated by pulse steroid therapy. The patient is on chronic narcotic analgesics at home. 1800 hrs. : Back from OR after T2 - T4 bilateral laminectomies. Neosynephrine infusion. 5 liters crystalloid. Mechanical ventilation via orotracheal intubation. 05/30/18: No overnight events, patient is purposeful but does not follow commands during sedation breaks as per RN. No movement of lower extremities. Still on low -dose matteo. Objective Vital Signs / I&O: Vital Signs 05/29/18 12:00 05/29/18 18:00 05/29/18 18:30 Temperature 97.8 F 98.2 F Pulse Rate 106 H 94 H 96 H Respiratory Rate 16 16 16 Blood Pressure 143/84 H 107/55 L 73/30 L Pulse Oximetry 92 L 98 05/29/18 18:33 05/29/18 18:35 05/29/18 18:39 Temperature Pulse Rate 96 H 94 H 94 H Respiratory Rate 16 16 17 Blood Pressure 69/34 L 82/37 L 78/37 L Pulse Oximetry 98 98 98 05/29/18 18:44 05/29/18 18:49 05/29/18 18:54 Temperature Pulse Rate 94 H 101 H 95 H Respiratory Rate 17 27 H 20 Blood Pressure 82/49 L 93/54 L 97/50 L Pulse Oximetry 98 98 99 05/29/18 18:58 05/29/18 18:59 05/29/18 19:00 Temperature Pulse Rate 93 H 95 H 96 H Respiratory Rate 18 23 27 H Blood Pressure 95/52 L 94/50 L Pulse Oximetry 99 99 98 05/29/18 19:04 05/29/18 19:09 05/29/18 19:14 Temperature Pulse Rate 100 H 92 H 96 H Respiratory Rate 31 H 18 28 H Blood Pressure 105/55 L 111/57 L 111/61 Pulse Oximetry 99 99 99 05/29/18 19:15 05/29/18 19:19 05/29/18 19:24 Temperature Pulse Rate 96 H 94 H 91 H Respiratory Rate 22 21 18 Blood Pressure 112/58 L 102/55 L Pulse Oximetry 99 100 100 05/29/18 19:29 05/29/18 19:30 05/29/18 19:31 Temperature 98.6 F Pulse Rate 94 H 95 H 95 H Respiratory Rate 20 21 25 H Blood Pressure 93/53 L 93/49 L Pulse Oximetry 99 99 99 05/29/18 19:34 05/29/18 19:39 05/29/18 19:44 Temperature Pulse Rate 96 H 85 81 Respiratory Rate 24 21 16 Blood Pressure 98/49 L 126/71 131/66 Pulse Oximetry 97 100 100 05/29/18 19:45 05/29/18 19:49 05/29/18 19:54 Temperature Pulse Rate 80 80 85 Respiratory Rate 16 16 16 Blood Pressure 139/65 131/63 Pulse Oximetry 100 100 100 05/29/18 19:59 05/29/18 20:00 05/29/18 20:14 Temperature 98.6 F Pulse Rate 86 88 78 Respiratory Rate 16 16 16 Blood Pressure 84/60 L 143/70 H Pulse Oximetry 100 100 100 05/29/18 20:15 05/29/18 20:29 05/29/18 20:30 Temperature Pulse Rate 77 84 82 Respiratory Rate 16 16 16 Blood Pressure 117/56 L Pulse Oximetry 100 100 100 05/29/18 20:44 05/29/18 20:45 05/29/18 20:59 Temperature Pulse Rate 73 73 70 Respiratory Rate 16 16 16 Blood Pressure 120/59 L 124/60 Pulse Oximetry 100 100 100 05/29/18 21:00 05/29/18 21:14 05/29/18 21:15 Temperature Pulse Rate 70 73 74 Respiratory Rate 16 16 15 Blood Pressure 131/64 Pulse Oximetry 100 100 100 05/29/18 21:29 05/29/18 21:30 05/29/18 21:44 Temperature Pulse Rate 75 73 72 Respiratory Rate 16 13 15 Blood Pressure 125/58 L 119/59 L Pulse Oximetry 100 100 100 05/29/18 21:45 05/29/18 21:59 05/29/18 22:00 Temperature Pulse Rate 73 71 73 Respiratory Rate 7 L 13 16 Blood Pressure 100/49 L Pulse Oximetry 100 100 100 05/29/18 22:14 05/29/18 22:15 05/29/18 22:29 Temperature Pulse Rate 78 77 67 Respiratory Rate 16 16 12 Blood Pressure 90/54 L 134/63 Pulse Oximetry 100 100 100 05/29/18 22:44 05/29/18 22:59 05/29/18 23:00 Temperature Pulse Rate 64 65 66 Respiratory Rate 8 L 16 14 Blood Pressure 127/59 L 126/56 L Pulse Oximetry 100 100 100 05/29/18 23:14 05/29/18 23:29 05/29/18 23:44 Temperature Pulse Rate 67 67 67 Respiratory Rate 10 L 15 16 Blood Pressure 135/60 130/62 128/58 L Pulse Oximetry 100 100 100 05/29/18 23:59 05/30/18 00:00 05/30/18 00:03 Temperature 97.8 F Pulse Rate 70 70 Respiratory Rate 16 16 16 Blood Pressure 126/62 126/62 Pulse Oximetry 100 100 100 05/30/18 00:14 05/30/18 00:29 05/30/18 00:44 Temperature Pulse Rate 68 66 64 Respiratory Rate 16 6 L 16 Blood Pressure 121/56 L 114/57 L 109/53 L Pulse Oximetry 100 100 100 05/30/18 00:59 05/30/18 01:00 05/30/18 01:14 Temperature Pulse Rate 65 64 65 Respiratory Rate 16 16 16 Blood Pressure 125/59 L 118/58 L Pulse Oximetry 100 100 100 05/30/18 01:29 05/30/18 01:44 05/30/18 01:59 Temperature Pulse Rate 63 62 62 Respiratory Rate 16 16 16 Blood Pressure 118/59 L 121/55 L 119/58 L Pulse Oximetry 100 100 100 05/30/18 02:00 05/30/18 02:14 05/30/18 02:29 Temperature Pulse Rate 62 62 61 Respiratory Rate 16 16 16 Blood Pressure 122/60 124/55 L Pulse Oximetry 100 100 100 05/30/18 02:44 05/30/18 02:59 05/30/18 03:00 Temperature Pulse Rate 61 61 61 Respiratory Rate 16 16 16 Blood Pressure 111/54 L 112/57 L Pulse Oximetry 100 99 100 05/30/18 03:14 05/30/18 03:29 05/30/18 03:43 Temperature Pulse Rate 61 64 Respiratory Rate 15 11 L 16 Blood Pressure 114/55 L 102/54 L Pulse Oximetry 99 99 99 05/30/18 03:48 05/30/18 03:59 05/30/18 04:00 Temperature 98.3 F Pulse Rate 69 66 65 Respiratory Rate 16 13 18 Blood Pressure 121/66 119/66 Pulse Oximetry 100 100 99 05/30/18 04:14 05/30/18 04:29 05/30/18 04:44 Temperature Pulse Rate 61 60 59 L Respiratory Rate 16 0 L 1 L Blood Pressure 119/58 L 115/58 L 105/53 L Pulse Oximetry 99 99 99 05/30/18 04:59 05/30/18 05:00 05/30/18 05:14 Temperature Pulse Rate 60 59 L 56 L Respiratory Rate 9 L 7 L 11 L Blood Pressure 111/59 L 110/58 L Pulse Oximetry 99 99 99 05/30/18 05:29 05/30/18 05:44 05/30/18 05:59 Temperature Pulse Rate 57 L 57 L 57 L Respiratory Rate 16 16 16 Blood Pressure 110/58 L 116/58 L 118/58 L Pulse Oximetry 99 99 99 05/30/18 06:00 05/30/18 07:35 Temperature Pulse Rate 56 L Respiratory Rate 16 16 Blood Pressure Pulse Oximetry 99 99 Intake & Output 05/29/18 05/30/18 05/30/18 18:59 06:59 18:59 Intake Total 4050 / 4050 1800 / 1800 1350 / 1350 Output Total 2150 / 2150 2049 Balance 1900 / 1900 -250 / -250 1350 / 1350 Weight 164.9 kg Intake: IV 50 / 50 1800 / 1800 1350 / 1350 Diprivan 1000 mg/100 ml Inj 1, 200 / 200 100 / 100 000 mg In 100 ml @ 5 MCG/KG/MIN 4.965 mls/hr IV.CONT TITRATE PRN Rx#:[id number] NS Inj 1,000 ML @ 84 mls/hr IV. 1000 / 1000 CONT .[id number] [facility] Rx#:[id number] Alburx 5% Inj 500 ML @ 250 mls/ 500 / 500 hr IV.SIG ONCE ONE Rx#:[id number] NS Inj 1,000 ML @ 999 mls/hr IV 1000 / 1000 .SIG BOLUS ONE Rx#:[id number] Ancef 2 GM Premix Inj 2 gm In 50 / 50 100 / 100 50 ml @ 100 mls/hr IV.SIG Q8H [facility] Rx#:[id number] fentaNYL 10 mcg/mL Premix Drip 250 / 250 2,500 mcg In 250 ml @ 50 MCG/HR 5 mls/hr IV.SIG TITRATE PRN Rx #:[id number] Anesthesia Amount 4000 / 4000 Output: Estimated Blood Loss 1200 / 1200 Urine Amount (Catheter) 950 / 950 1650 / 1650 1 950 / 950 1650 / 1650 Gastric Drainage 400 / 400 Oral Orogastric Tube 400 / 400 Other: Date of Last Bowel Movement 05/24/18 05/24/18 Result Diagrams: 05/30/18 04:40 05/30/18 04:40 Objective Remarks: GEN: Well-appearing elderly male, no acute distress HEENT: NCAT NECK: Trachea midline CARDIO: Alejandra to 50s, regular PULM: Mechanical breath sounds present bilaterally ABD/GI: Soft, non-distended, non-tender EXT/MSK: No peripheral edema SKIN: Warm and well-perfused, trace peripheral edema NEURO: RASS -2, no response to sternal rub, deeply sedated PSYCH: Unable to assess Assessment and Plan - Assessment and Plan Plan: Assessment: 62yM with pathologic T3 fracture and spinal cord impingement from metastatic squamous cell CA s/p resection Plan by systems: NEURO: Thoracic metastatic vertebral lesion (T3) with spinal cord compression Pathologic T3 fracture Lower extremity paraplegia H/O squamous cell carcinoma -POD #1 s/p B/L T2-4 laminectomies with resection of epidural tumor and spinal cord decompression -Continue dexamethasone -Currently sedated with propofol/ fentanyl, will attempt to switch propofol to precedex -Hold home dose of xanax CARDIO: Hypotension Bradycardia -Sinus alejandra, hold beta blockers -On low-dose matteo, possibly related to sedation as patient appears to be euvolemic, goal MAP 65 PULM: -Vent bundle -Spontaneous breathing trial today when sedation is switched to precedex -ETT in appropriate position, ABG wnl -Lesion was at T3, can potentially affect intercostal muscles but is below level of diaphragm innervation F/E/N, RENAL: Acute kidney injury -ICU electrolyte protocol -Continue maintenance IV fluids -Acute kidney injury- now resolved, urine output adequate GI: Mild protein calorie malnutrition as evidenced by hypoalbuminemia on admission Morbid obesity -If patient is not extubated today, will start tube feeds -Multivitamin supplementation ID: -Continue Ancef PROPHY: -PPI -SCDs, Lovenox Oral impression: This patient remains critically ill but stable, requires continued ICU level of care. Palliative care consult requested to help discuss goals of care/ assist with understanding of extent of disease as patient has functional LE paraplegia and metastatic CA. Counseling/ Coordination of Care: This patient is critically ill with impairment of one or more vital organ systems with a high probability of imminent or life-threatening deterioration. High-complexity medical decision making was required to support vital organ function and/ or prevent deterioration of the patient's condition. Total critical care time spent is 32 minutes giving full attention to this patient. This includes examining the patient, gathering history from someone other than the patient (i.e. chart review), managing the patient's blood pressure and ventilator settings, ordering and interpreting radiologic studies, ordering and interpreting laboratory values, managing the patient's sedation requirements, re-evaluation at frequent intervals, and documentation. Amount of time is separate from teaching, counseling the patient and/or family, and exclusive of procedures. To help prompt me to consider important information that might be impacting today's encounter and assessment, information from prior notes written by myself or my colleagues may have been "brought forward" into today's note. My signature on this note, however, is an attestation that I personally performed the exam, history, and/or decision-making noted today, and, unless otherwise indicated, the interactions with patient, family, and staff as well as the review of records all occurred today. I also attest that the listed assessment and stated plan reflect my best clinical judgment today based on the combination of historical information, prior notes, and today's exam/ interactions. Code Status: Full
[2018-05-30] MEDS ORDERED: RASS Change Order OTHER ONE (09:00)
[2018-05-30] MEDS: Senna/Docusate Sodium 8.6/50 MG Tablet PO SCH ×2 (09:10→20:08)
[2018-05-30] MEDS: Insulin NovoLOG Aspart Correctional Sugar Inj SQ SCH ×4 (09:10→20:07)
[2018-05-30] MEDS ORDERED: HYDROmorphone PF Inj 0.5 MG/0.5 ML Syringe IV.PUSH PRN (09:39)
[2018-05-30] MEDS: Chlorhexidine 0.12% Oral Kit 15 ML UDC OROPHARYNG SCH (09:57)
[2018-05-30] MEDS: Multivit/Folic Acid/Minerals Chewable Tablets CHEW SCH (09:57)
[2018-05-30] MEDS ORDERED: Dextrose 50% in Water 50 ML Vial IV.PUSH PRN (10:21)
--- NOTE | 2018-05-30 13:56 | P.PNNS ---
Subjective Interval history: May 30, 2018 The patient is just been extubated. He has remained stable overnight. He has been weaned off pressors, and has remained hemodynamically stable. He complains only of mild mid dorsal spine pain. Physical Exam Vital signs: Vital Signs 05/29/18 18:00 05/29/18 18:30 05/29/18 18:33 Temperature 98.2 F Pulse Rate 94 H 96 H 96 H Respiratory Rate 16 16 16 Blood Pressure 107/55 L 73/30 L 69/34 L Pulse Oximetry 98 98 05/29/18 18:35 05/29/18 18:39 05/29/18 18:44 Temperature Pulse Rate 94 H 94 H 94 H Respiratory Rate 16 17 17 Blood Pressure 82/37 L 78/37 L 82/49 L Pulse Oximetry 98 98 98 05/29/18 18:49 05/29/18 18:54 05/29/18 18:58 Temperature Pulse Rate 101 H 95 H 93 H Respiratory Rate 27 H 20 18 Blood Pressure 93/54 L 97/50 L 95/52 L Pulse Oximetry 98 99 99 05/29/18 18:59 05/29/18 19:00 05/29/18 19:04 Temperature Pulse Rate 95 H 96 H 100 H Respiratory Rate 23 27 H 31 H Blood Pressure 94/50 L 105/55 L Pulse Oximetry 99 98 99 05/29/18 19:09 05/29/18 19:14 05/29/18 19:15 Temperature Pulse Rate 92 H 96 H 96 H Respiratory Rate 18 28 H 22 Blood Pressure 111/57 L 111/61 Pulse Oximetry 99 99 99 05/29/18 19:19 05/29/18 19:24 05/29/18 19:29 Temperature 98.6 F Pulse Rate 94 H 91 H 94 H Respiratory Rate 21 18 20 Blood Pressure 112/58 L 102/55 L 93/53 L Pulse Oximetry 100 100 99 05/29/18 19:30 05/29/18 19:31 05/29/18 19:34 Temperature Pulse Rate 95 H 95 H 96 H Respiratory Rate 21 25 H 24 Blood Pressure 93/49 L 98/49 L Pulse Oximetry 99 99 97 05/29/18 19:39 05/29/18 19:44 05/29/18 19:45 Temperature Pulse Rate 85 81 80 Respiratory Rate 21 16 16 Blood Pressure 126/71 131/66 Pulse Oximetry 100 100 100 01/06/19 19:49 05/29/18 19:54 05/29/18 19:59 Temperature Pulse Rate 80 85 86 Respiratory Rate 16 16 16 Blood Pressure 139/65 131/63 84/60 L Pulse Oximetry 100 100 100 05/29/18 20:00 05/29/18 20:14 05/29/18 20:15 Temperature 98.6 F Pulse Rate 88 78 77 Respiratory Rate 16 16 16 Blood Pressure 143/70 H Pulse Oximetry 100 100 100 05/29/18 20:29 05/29/18 20:30 05/29/18 20:44 Temperature Pulse Rate 84 82 73 Respiratory Rate 16 16 16 Blood Pressure 117/56 L 120/59 L Pulse Oximetry 100 100 100 05/29/18 20:45 05/29/18 20:59 05/29/18 21:00 Temperature Pulse Rate 73 70 70 Respiratory Rate 16 16 16 Blood Pressure 124/60 Pulse Oximetry 100 100 100 05/29/18 21:14 05/29/18 21:15 05/29/18 21:29 Temperature Pulse Rate 73 74 75 Respiratory Rate 16 15 16 Blood Pressure 131/64 125/58 L Pulse Oximetry 100 100 100 05/29/18 21:30 05/29/18 21:44 05/29/18 21:45 Temperature Pulse Rate 73 72 73 Respiratory Rate 13 15 7 L Blood Pressure 119/59 L Pulse Oximetry 100 100 100 05/29/18 21:59 05/29/18 22:00 05/29/18 22:14 Temperature Pulse Rate 71 73 78 Respiratory Rate 13 16 16 Blood Pressure 100/49 L 90/54 L Pulse Oximetry 100 100 100 05/29/18 22:15 05/29/18 22:29 05/29/18 22:44 Temperature Pulse Rate 77 67 64 Respiratory Rate 16 12 8 L Blood Pressure 134/63 127/59 L Pulse Oximetry 100 100 100 05/29/18 22:59 05/29/18 23:00 05/29/18 23:14 Temperature Pulse Rate 65 66 67 Respiratory Rate 16 14 10 L Blood Pressure 126/56 L 135/60 Pulse Oximetry 100 100 100 05/29/18 23:29 05/29/18 23:44 05/29/18 23:59 Temperature Pulse Rate 67 67 70 Respiratory Rate 15 16 16 Blood Pressure 130/62 128/58 L 126/62 Pulse Oximetry 100 100 100 05/30/18 00:00 05/30/18 00:03 05/30/18 00:14 Temperature 97.8 F Pulse Rate 70 68 Respiratory Rate 16 16 16 Blood Pressure 126/62 121/56 L Pulse Oximetry 100 100 100 05/30/18 00:29 05/30/18 00:44 05/30/18 00:59 Temperature Pulse Rate 66 64 65 Respiratory Rate 6 L 16 16 Blood Pressure 114/57 L 109/53 L 125/59 L Pulse Oximetry 100 100 100 05/30/18 01:00 05/30/18 01:14 05/30/18 01:29 Temperature Pulse Rate 64 65 63 Respiratory Rate 16 16 16 Blood Pressure 118/58 L 118/59 L Pulse Oximetry 100 100 100 05/30/18 01:44 05/30/18 01:59 05/30/18 02:00 Temperature Pulse Rate 62 62 62 Respiratory Rate 16 16 16 Blood Pressure 121/55 L 119/58 L Pulse Oximetry 100 100 100 05/30/18 02:14 05/30/18 02:29 05/30/18 02:44 Temperature Pulse Rate 62 61 61 Respiratory Rate 16 16 16 Blood Pressure 122/60 124/55 L 111/54 L Pulse Oximetry 100 100 100 05/30/18 02:59 05/30/18 03:00 05/30/18 03:14 Temperature Pulse Rate 61 61 61 Respiratory Rate 16 16 15 Blood Pressure 112/57 L 114/55 L Pulse Oximetry 99 100 99 05/30/18 03:29 05/30/18 03:43 05/30/18 03:48 Temperature Pulse Rate 64 69 Respiratory Rate 11 L 16 16 Blood Pressure 102/54 L 121/66 Pulse Oximetry 99 99 100 05/30/18 03:59 05/30/18 04:00 05/30/18 04:14 Temperature 98.3 F Pulse Rate 66 65 61 Respiratory Rate 13 18 16 Blood Pressure 119/66 119/58 L Pulse Oximetry 100 99 99 05/30/18 04:29 05/30/18 04:44 05/30/18 04:59 Temperature Pulse Rate 60 59 L 60 Respiratory Rate 0 L 1 L 9 L Blood Pressure 115/58 L 105/53 L 111/59 L Pulse Oximetry 99 99 99 05/30/18 05:00 05/30/18 05:14 01/07/19 05:29 Temperature Pulse Rate 59 L 56 L 57 L Respiratory Rate 7 L 11 L 16 Blood Pressure 110/58 L 110/58 L Pulse Oximetry 99 99 99 05/30/18 05:44 05/30/18 05:59 05/30/18 06:00 Temperature Pulse Rate 57 L 57 L 56 L Respiratory Rate 16 16 16 Blood Pressure 116/58 L 118/58 L Pulse Oximetry 99 99 99 05/30/18 06:14 05/30/18 06:29 05/30/18 06:44 Temperature Pulse Rate 56 L 54 L 53 L Respiratory Rate 16 16 16 Blood Pressure 122/59 L 122/59 L 132/62 Pulse Oximetry 99 99 99 05/30/18 06:59 05/30/18 07:00 05/30/18 07:14 Temperature Pulse Rate 55 L 56 L 54 L Respiratory Rate 13 16 16 Blood Pressure 112/59 L 108/56 L Pulse Oximetry 99 99 99 05/30/18 07:29 05/30/18 07:35 05/30/18 07:44 Temperature Pulse Rate 55 L 56 L Respiratory Rate 16 16 15 Blood Pressure 106/56 L 105/55 L Pulse Oximetry 99 99 98 05/30/18 07:59 05/30/18 08:00 05/30/18 08:14 Temperature Pulse Rate 55 L 55 L 55 L Respiratory Rate 16 16 15 Blood Pressure 110/59 L 113/59 L Pulse Oximetry 98 98 98 05/30/18 08:29 05/30/18 08:41 05/30/18 08:44 Temperature 97.7 F Pulse Rate 58 L 53 L Respiratory Rate 13 16 Blood Pressure 112/60 116/62 Pulse Oximetry 98 98 97 05/30/18 08:59 05/30/18 09:00 05/30/18 09:14 Temperature Pulse Rate 51 L 51 L 51 L Respiratory Rate 16 16 16 Blood Pressure 118/67 117/58 L Pulse Oximetry 98 98 99 05/30/18 09:29 05/30/18 09:35 05/30/18 09:44 Temperature Pulse Rate 72 104 H 92 H Respiratory Rate 10 L 31 H 13 Blood Pressure 153/103 H 121/60 109/60 Pulse Oximetry 96 93 L 96 05/30/18 09:51 05/30/18 09:59 05/30/18 10:00 Temperature Pulse Rate 92 H 91 H Respiratory Rate 19 14 Blood Pressure 108/60 Pulse Oximetry 96 96 96 05/30/18 10:14 05/30/18 11:07 05/30/18 12:00 Temperature Pulse Rate 91 H 87 89 Respiratory Rate 16 21 22 Blood Pressure 110/59 L 105/61 Pulse Oximetry 95 94 L 95 05/30/18 12:07 05/30/18 12:56 05/30/18 13:00 Temperature 97.8 F Pulse Rate 89 92 H Respiratory Rate 25 H 13 18 Blood Pressure 117/64 Pulse Oximetry 95 94 L 05/30/18 13:07 Temperature Pulse Rate 91 H Respiratory Rate 21 Blood Pressure 118/68 Pulse Oximetry 95 Intake & Output 05/29/18 05/30/18 05/30/18 18:59 06:59 18:59 Intake Total 4050 / 4050 1800 / 1800 2312 / 2312 Output Total 2150 / 2150 2049 / 0 Balance 1900 / 1900 -250 / -250 2312 / 2312 Weight 164.9 kg Intake: IV 50 / 50 1800 / 1800 2312 / 2312 Precedex Inj 200 MCG In NS Inj 8 / 8 48 ML @ 0.2 MCG/KG/HR 8.24 mls/ hr IV.CONT TITRATE PRN Rx#: [id number] Neosynephrine Inj 80 MG In D5W 500 / 500 Inj 492 ML @ 40 MCG/MIN 15 mls/ hr IV.CONT TITRATE PRN Rx#: [id number] Diprivan 1000 mg/100 ml Inj 1, 200 / 200 165 / 165 000 mg In 100 ml @ 5 MCG/KG/MIN 4.965 mls/hr IV.CONT TITRATE PRN Rx#:[id number] NS Inj 1,000 ML @ 84 mls/hr IV. 1289 / 1289 CONT .[id number] [facility] Rx#:[id number] Alburx 5% Inj 500 ML @ 250 mls/ 500 / 500 hr IV.SIG ONCE ONE Rx#:[id number] NS Inj 1,000 ML @ 999 mls/hr IV 1000 / 1000 .SIG BOLUS ONE Rx#:[id number] Ancef 2 GM Premix Inj 2 gm In 50 / 50 100 / 100 50 / 50 50 ml @ 100 mls/hr IV.SIG Q8H [facility] Rx#:[id number] fentaNYL 10 mcg/mL Premix Drip 300 / 300 2,500 mcg In 250 ml @ 50 MCG/HR 5 mls/hr IV.SIG TITRATE PRN Rx #:[id number] Anesthesia Amount 4000 / 4000 Output: Estimated Blood Loss 1200 / 1200 Urine Amount (Catheter) 950 / 950 1650 / 1650 1 950 / 950 1650 / 1650 Gastric Drainage 400 / 400 Oral Orogastric Tube 400 / 400 Other: Date of Last Bowel Movement 05/24/18 05/24/18 - Routine Neurological Exam May 30, 2018 The patient is lying in bed as I enter the room. He has just been extubated. He is coughing. On neurological examination, he is awake alert. He is oriented by 3. His speech appears to be fluent. Cranial nerve testing finds his pupils are equal round reactive to light. Extraocular muscle full without nystagmus. Motor examination reveals persistent paraplegia with only less than 1+/5+ movement of the left hip flexor. Sensory examination reveals diminished light touch and position sense in both lower extremities from roughly T6 inferiorly. His right ankle and knee jerk were absent. His left knee jerk is 3 -4+ with absent left ankle jerk. The dressing is essentially dry with the LUCHO drain in place. =movement of the left hip flexor. - Urinary Catheter Management 1 Cath placed during this visit: yes Reason for continuing: Hourly intake/output Insertion date: 05/29/18 Insertion time: 13:20 Assessment and Plan - Plan 64 yo male with acute onset of BLE weakness with Rt>>Lt. Stable nEURO EXAM Right lower extremity shows possible early cellulitis,needs further workup T spine CT shows significant compression fracture with mild retropulsion although images are degraded due to morbid obesity. T and L-spine MRI with and without Gadolinium shows compression from complex T3 pathologic fracture Appreciate STAT Rad Onc Consult for XrT to T3 area which, he is starting today. Decadron 10 mg IV q6h for the next 3 days and then would taper No indication for Neurosurgical Intervention at this time, will sign off and be available as needed. Discussed with patient and Daughter. All questions were answered today. May 29, 2018 The patient has developed a profound neurological deficit essentially paraplegic at this point. He has an incomplete sensory loss. He is incontinent of urine. Therapeutic options were discussed with the patient and the family. Surgical decompression was offered. Specifically bilateral laminectomies of T2-T3 and T4 with resection of tumor and spinal cord decompression. The risks, benefits, limitations, complications, and alternatives to surgery were discussed and enumerated and no guarantees were afforded. They understood this and are requesting surgical intervention. Informed consent has been obtained. The patient will be brought to the operating emergently. The pre-operative orders have been submitted. May 30, 2018 The patient is stable postoperative day #1 status post T2-T4 laminectomies for spinal cord decompression and resection of epidural tumor. Unfortunately the patient remains essentially paraplegic postoperatively as it was preoperatively. He is to continue the present management he will require extensive course of rehabilitation and probably will need to be transferred for a course of inpatient rehabilitation. At this point, he needs mobilization and physical as well as Occupational Therapy. Pharmacological DVT prophylaxis can be restarted. I discussed this all with his family at the bedside. I also informed Dr. Kevin Conde, radiation oncologist that the patient delivered emergent surgical intervention and that radiation therapy at this point to his spine that need to be delayed. I also discussed case with the assembler fishing floats. I would continue the present management. Neurosurgery will follow.
--- NOTE | 2018-05-30 14:53 | P.CONPAL ---
Consult Service: Palliative Care Requesting Physician: Susan Fu Reason for Consult: a. To assist with evaluation and management of symptoms including: pain, dyspnea, debility, anxiety b. To assist medical decision maker(s) with: better understanding of current medical conditions; weighing benefits/burdens of medical treatment options; making medical treatment decisions. 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 He was found to have acute compression fx T3 with some retropulsion of elements. Neurosurgery was consulted and subsequently consulted radiation oncology who recommended palliative radiation to the area. He was also started on decadron. He subsequently became unable to move his BLE, and became incontinent and has increasing numbness. Neurosurgery was reconsulted and offered surgical intervention consisting of laminectomy, tumor resection, spinal cord decompression. Pt and family opted for surgery after which he was transferred to [facility]. He is still unable to move his legs. Prior to this hospitalization patient was followed by Dr. Melchor. He had a squamous cell skin cancer removed from his left axilla. Subsequently a regional node near the lung was found and radiated. He had radiation for pulmonary metastases and then developed radiation pneumonitis. He failed immunotherapy. He subsequently went to [facility] and was started on chemotherapy and his radiation pneumonitis returned. Pt seen in room, numerous family members at bedside. Pt c/o constant back pain 11/30. he denies dyspnea on my eval but says he does become SOB with exertion, extended conversation. He admits ongoing anxiety r/t his cancer. He was taking xanax at home and oxycodone 10 mg. His anxiety is worse at night when his family leaves. Function/Cognitive Trajectory: Prior to few days before admission pt was ambulatory and independent with ADLs. Now paraplegic. Review of Systems Constitutional: Reports lack of energy, Denies anorexia Eyes: Denies change in vision Ears, Nose, Mouth, and Throat: Denies abnormal hearing Cardiovascular: Denies chest pain Respiratory: Reports shortness of breath with activity, Denies coughing up blood , Denies shortness of breath Gastrointestinal: Denies abdominal pain, Denies vomiting Musculoskeletal: Reports back pain, Reports muscle weakness, Reports numbness Skin/Breast: Denies bleeding lesions Neurologic: Reports abnormal walking, Reports localized weakness, Reports numbness, Reports sensory deficit, Reports unsteadiness, Reports weakness Psychiatric: Reports anxiety, Denies hopelessness [facility] - History History Provided By: Patient - Medical History Medical History: Medical History (Last Reviewed 05/30/18 @ 09:37 by Susan Fu DO) Abnormal biopsy result Cancer, skin, squamous cell Diabetes Lung cancer - Surgical History Surgical History: Surgical History (Last Updated 05/30/18 @ 15:41 by HODA Zavala) H/O laminectomy - Family History Family History: Family History (Last Updated 05/30/18 @ 14:12 by HODA Zavala) Father Esophageal cancer Mother Colon cancer - Tobacco History Second Hand Smoke Exposure: No Smoking Status: Never smoker - Alcohol History How Often Do You Have a Drink Containing Alcohol: Never - Substance Use History Substance History: No History of Abuse - Travel History Recent Travel in the [place] Within the Last 8 Weeks: No Recent Travel Out of the Country Within the Last 8 Weeks: No - Immunization History Tetanus Immunization: >5 Years Hx Influenza Vaccine This Season: No Medications and Allergies Active Medications: Active Medications Acetaminophen (Tylenol) 650 mg PO Q4H PRN PRN Reason: Headache, fever, pain 1-4 Al Hydroxide/Mg Hydroxide (Milk Of Magnesia Liq) 30 ml PO Q12H PRN PRN Reason: Mild Constipation Last Admin: 05/30/18 09:20 Dose: 30 ml Alprazolam (Xanax) 0.5 mg PO BID PRN PRN Reason: Pain Last Admin: 05/28/18 18:52 Dose: 0.5 mg Bisacodyl (Dulcolax Supp) 10 mg RECTAL DAILY PRN PRN Reason: SEVERE CONSITIPATION Dexamethasone Sodium Phosphate (Decadron Inj) 6 mg IV.PUSH Q4H BALTAZAR Last Admin: 05/30/18 13:00 Dose: 6 mg Dextrose (D50w Vial) 50 ml IV.PUSH UNSCH PRN PRN Reason: PER HYPOGLYCEMIA PROTOCOL Enoxaparin Sodium (Lovenox Inj) 40 mg SQ Q24H BALTAZAR Last Admin: 05/28/18 18:15 Dose: 40 mg Glucagon (Glucagon Inj) 1 mg OTHER PRN PRN PRN Reason: for Hypoglycemia Protocol Hydromorphone HCl (Dilaudid Pf Inj) 0.2 mg IV.PUSH Q4H PRN PRN Reason: BREAKTHROUGH PAIN Magnesium Sulfate 4 gm/ Sodium (Chloride) 100 mls @ 50 mls/hr IV.SIG UNSCH PRN PRN Reason: For Magnesium 0.9 - 1.1 mg/dL Magnesium Sulfate 2 gm/ Sodium (Chloride) 100 mls @ 50 mls/hr IV.SIG UNSCH PRN PRN Reason: For Magnesium 1.2 - 1.6 mg/dL Potassium Chloride (Kcl 40 Meq Premix Inj) 40 meq in 100 mls @ 50 mls/hr IV.SIG Q2H PRN PRN Reason: For Potassium 2.8 - 3.2 mEq/L Potassium Chloride (Kcl 20 Meq Premix Inj) 20 meq in 100 mls @ 50 mls/hr IV.SIG Q2H PRN PRN Reason: For Potassium 3.3 - 3.5 mEq/L Potassium Chloride (Kcl 40 Meq Premix Inj) 40 meq in 100 mls @ 25 mls/hr IV.SIG UNSCH PRN PRN Reason: For Potassium 3.3 - 3.5 mEq/L Potassium Chloride (Kcl 20 Meq Premix Inj) 20 meq in 100 mls @ 50 mls/hr IV.SIG Q2H PRN PRN Reason: For Potassium 2.8 - 3.2 mEq/L Potassium Phosphate 30 mmol/ (Sodium Chloride) 260 mls @ 42 mls/hr IV.SIG UNSCH PRN PRN Reason: SEE LABEL COMMENTS Sodium Phosphate 30 mmol/ (Sodium Chloride) 260 mls @ 42 mls/hr IV.SIG UNSCH PRN PRN Reason: For Phosphorus < 2.5 mg/dL Insulin Aspart (Novolog Insulin Correctional Sugar Inj) 0 unit SQ ACHS [facility]; Protocol Last Admin: 05/30/18 12:57 Dose: 222 unit Lactulose (Lactulose Liq) 30 ml PO DAILY PRN PRN Reason: SEVERE CONSITIPATION Magnesium Oxide (Mag-Ox) 800 mg PO UNSCH PRN PRN Reason: For Magnesium 1.2 - 1.6 mg/dL Multivitamins/Folic Acid/Vitamin C (Flintstones) 1 tab CHEW DAILY [facility] Last Admin: 05/30/18 09:57 Dose: Not Given Ondansetron HCl (Zofran Inj) 4 mg IV.PUSH Q6H PRN PRN Reason: NAUSEA OR VOMITING Oxycodone HCl (Roxicodone) 5 mg PO Q4H PRN PRN Reason: PAIN SCALE 1 TO 5 Oxycodone HCl (Roxicodone) 10 mg PO Q4H PRN PRN Reason: PAIN SCALE 6 TO 10 Last Admin: 05/30/18 11:39 Dose: 10 mg Pantoprazole Sodium (Protonix) 40 mg PO DAILY [facility] Last Admin: 05/30/18 08:25 Dose: Not Given Potassium Bicarb/Potassium Chloride (K-Lyte Cl Eff) 50 meq PO UNSCH PRN PRN Reason: For Potassium 3.3 - 3.5 mEq/L Potassium Phosphate (K-Phos Original) 2,000 mg PO Q4H PRN PRN Reason: Phosphorus Less Than 2.5 mg/dL Potassium Phosphate (K-Phos Original) 2,000 mg PO UNSCH PRN PRN Reason: SEE LABEL COMMENTS Povidone Iodine (Betadine 5% Antisepsis Kit) 1 applicatio EACH [employer] [facility] Stop: 06/01/18 11:52 Senna/Docusate Sodium (Radha-Colace) 1 tab PO BID [facility] Last Admin: 05/30/18 09:10 Dose: 1 tab Sennosides (Senokot) 17.2 mg PO Q12H PRN PRN Reason: Moderate Constipation Sodium Chloride (Ns Flush) 2 ml IV.FLUSH BID [facility] Last Admin: 05/30/18 09:11 Dose: 2 ml Sodium Chloride (Ns Flush) 2 ml IV.FLUSH PRN PRN PRN Reason: FLUSH AFTER USING IV ACCESS Allergies Allergy/AdvReac Type Severity Reaction Status Date / Time No Known Allergies Allergy Verified 05/25/18 13:20 Home Medications Medication Instructions Recorded Confirmed Type acetaminophen [Tylenol Extra 500 mg PO Q6H PRN 04/20/18 05/25/18 History Strength] ibuprofen 400 mg PO Q4-6H PRN 04/20/18 05/25/18 History oxycodone 10 mg PO Q4-6H PRN 04/20/18 05/25/18 History alprazolam 0.5 mg PO BID PRN 05/25/18 05/25/18 History carboplatin mg/m2 IV Q4W 05/25/18 History metformin 850 mg PO BID 05/25/18 05/25/18 History paclitaxel mg/m2/hr IV 05/25/18 History Advance Directives Living Will: No Healthcare Surrogate: No Power of Electric Stove Mechanic: No Physical Exam Vital Signs: Vital Signs - 24 hr 05/29/18 18:00 05/29/18 18:30 05/29/18 18:33 Temperature 98.2 F Pulse Rate 94 H 96 H 96 H Respiratory Rate 16 16 16 Blood Pressure 107/55 L 73/30 L 69/34 L Pulse Oximetry 98 98 05/29/18 18:35 05/29/18 18:39 05/29/18 18:44 Temperature Pulse Rate 94 H 94 H 94 H Respiratory Rate 16 17 17 Blood Pressure 82/37 L 78/37 L 82/49 L Pulse Oximetry 98 98 98 05/29/18 18:49 05/29/18 18:54 05/29/18 18:58 Temperature Pulse Rate 101 H 95 H 93 H Respiratory Rate 27 H 20 18 Blood Pressure 93/54 L 97/50 L 95/52 L Pulse Oximetry 98 99 99 05/29/18 18:59 05/29/18 19:00 05/29/18 19:04 Temperature Pulse Rate 95 H 96 H 100 H Respiratory Rate 23 27 H 31 H Blood Pressure 94/50 L 105/55 L Pulse Oximetry 99 98 99 05/29/18 19:09 05/29/18 19:14 05/29/18 19:15 Temperature Pulse Rate 92 H 96 H 96 H Respiratory Rate 18 28 H 22 Blood Pressure 111/57 L 111/61 Pulse Oximetry 99 99 99 05/29/18 19:19 05/29/18 19:24 05/29/18 19:29 Temperature 98.6 F Pulse Rate 94 H 91 H 94 H Respiratory Rate 21 18 20 Blood Pressure 112/58 L 102/55 L 93/53 L Pulse Oximetry 100 100 99 05/29/18 19:30 05/29/18 19:31 05/29/18 19:34 Temperature Pulse Rate 95 H 95 H 96 H Respiratory Rate 21 25 H 24 Blood Pressure 93/49 L 98/49 L Pulse Oximetry 99 99 97 05/29/18 19:39 05/29/18 19:44 05/29/18 19:45 Temperature Pulse Rate 85 81 80 Respiratory Rate 21 16 16 Blood Pressure 126/71 131/66 Pulse Oximetry 100 100 100 05/29/18 19:49 05/29/18 19:54 05/29/18 19:59 Temperature Pulse Rate 80 85 86 Respiratory Rate 16 16 16 Blood Pressure 139/65 131/63 84/60 L Pulse Oximetry 100 100 100 05/29/18 20:00 05/29/18 20:14 05/29/18 20:15 Temperature 98.6 F Pulse Rate 88 78 77 Respiratory Rate 16 16 16 Blood Pressure 143/70 H Pulse Oximetry 100 100 100 05/29/18 20:29 05/29/18 20:30 05/29/18 20:44 Temperature Pulse Rate 84 82 73 Respiratory Rate 16 16 16 Blood Pressure 117/56 L 120/59 L Pulse Oximetry 100 100 100 05/29/18 20:45 05/29/18 20:59 05/29/18 21:00 Temperature Pulse Rate 73 70 70 Respiratory Rate 16 16 16 Blood Pressure 124/60 Pulse Oximetry 100 100 100 05/29/18 21:14 05/29/18 21:15 05/29/18 21:29 Temperature Pulse Rate 73 74 75 Respiratory Rate 16 15 16 Blood Pressure 131/64 125/58 L Pulse Oximetry 100 100 100 05/29/18 21:30 05/29/18 21:44 05/29/18 21:45 Temperature Pulse Rate 73 72 73 Respiratory Rate 13 15 7 L Blood Pressure 119/59 L Pulse Oximetry 100 100 100 05/29/18 21:59 05/29/18 22:00 05/29/18 22:14 Temperature Pulse Rate 71 73 78 Respiratory Rate 13 16 16 Blood Pressure 100/49 L 90/54 L Pulse Oximetry 100 100 100 05/29/18 22:15 05/29/18 22:29 05/29/18 22:44 Temperature Pulse Rate 77 67 64 Respiratory Rate 16 12 8 L Blood Pressure 134/63 127/59 L Pulse Oximetry 100 100 100 05/29/18 22:59 05/29/18 23:00 05/29/18 23:14 Temperature Pulse Rate 65 66 67 Respiratory Rate 16 14 10 L Blood Pressure 126/56 L 135/60 Pulse Oximetry 100 100 100 05/29/18 23:29 05/29/18 23:44 05/29/18 23:59 Temperature Pulse Rate 67 67 70 Respiratory Rate 15 16 16 Blood Pressure 130/62 128/58 L 126/62 Pulse Oximetry 100 100 100 05/30/18 00:00 05/30/18 00:03 05/30/18 00:14 Temperature 97.8 F Pulse Rate 70 68 Respiratory Rate 16 16 16 Blood Pressure 126/62 121/56 L Pulse Oximetry 100 100 100 05/30/18 00:29 05/30/18 00:44 05/30/18 00:59 Temperature Pulse Rate 66 64 65 Respiratory Rate 6 L 16 16 Blood Pressure 114/57 L 109/53 L 125/59 L Pulse Oximetry 100 100 100 05/30/18 01:00 05/30/18 01:14 05/30/18 01:29 Temperature Pulse Rate 64 65 63 Respiratory Rate 16 16 16 Blood Pressure 118/58 L 118/59 L Pulse Oximetry 100 100 100 05/30/18 01:44 05/30/18 01:59 05/30/18 02:00 Temperature Pulse Rate 62 62 62 Respiratory Rate 16 16 16 Blood Pressure 121/55 L 119/58 L Pulse Oximetry 100 100 100 05/30/18 02:14 05/30/18 02:29 05/30/18 02:44 Temperature Pulse Rate 62 61 61 Respiratory Rate 16 16 16 Blood Pressure 122/60 124/55 L 111/54 L Pulse Oximetry 100 100 100 05/30/18 02:59 05/30/18 03:00 05/30/18 03:14 Temperature Pulse Rate 61 61 61 Respiratory Rate 16 16 15 Blood Pressure 112/57 L 114/55 L Pulse Oximetry 99 100 99 05/30/18 03:29 05/30/18 03:43 05/30/18 03:48 Temperature Pulse Rate 64 69 Respiratory Rate 11 L 16 16 Blood Pressure 102/54 L 121/66 Pulse Oximetry 99 99 100 05/30/18 03:59 05/30/18 04:00 05/30/18 04:14 Temperature 98.3 F Pulse Rate 66 65 61 Respiratory Rate 13 18 16 Blood Pressure 119/66 119/58 L Pulse Oximetry 100 99 99 05/30/18 04:29 05/30/18 04:44 05/30/18 04:59 Temperature Pulse Rate 60 59 L 60 Respiratory Rate 0 L 1 L 9 L Blood Pressure 115/58 L 105/53 L 111/59 L Pulse Oximetry 99 99 99 05/30/18 05:00 05/30/18 05:14 05/30/18 05:29 Temperature Pulse Rate 59 L 56 L 57 L Respiratory Rate 7 L 11 L 16 Blood Pressure 110/58 L 110/58 L Pulse Oximetry 99 99 99 05/30/18 05:44 05/30/18 05:59 05/30/18 06:00 Temperature Pulse Rate 57 L 57 L 56 L Respiratory Rate 16 16 16 Blood Pressure 116/58 L 118/58 L Pulse Oximetry 99 99 99 05/30/18 06:14 05/30/18 06:29 05/30/18 06:44 Temperature Pulse Rate 56 L 54 L 53 L Respiratory Rate 16 16 16 Blood Pressure 122/59 L 122/59 L 132/62 Pulse Oximetry 99 99 99 05/30/18 06:59 05/30/18 07:00 05/30/18 07:14 Temperature Pulse Rate 55 L 56 L 54 L Respiratory Rate 13 16 16 Blood Pressure 112/59 L 108/56 L Pulse Oximetry 99 99 99 05/30/18 07:29 05/30/18 07:35 05/30/18 07:44 Temperature Pulse Rate 55 L 56 L Respiratory Rate 16 16 15 Blood Pressure 106/56 L 105/55 L Pulse Oximetry 99 99 98 05/30/18 07:59 05/30/18 08:00 05/30/18 08:14 Temperature Pulse Rate 55 L 55 L 55 L Respiratory Rate 16 16 15 Blood Pressure 110/59 L 113/59 L Pulse Oximetry 98 98 98 05/30/18 08:29 05/30/18 08:41 05/30/18 08:44 Temperature 97.7 F Pulse Rate 58 L 53 L Respiratory Rate 13 16 Blood Pressure 112/60 116/62 Pulse Oximetry 98 98 97 05/30/18 08:59 05/30/18 09:00 05/30/18 09:14 Temperature Pulse Rate 51 L 51 L 51 L Respiratory Rate 16 16 16 Blood Pressure 118/67 117/58 L Pulse Oximetry 98 98 99 05/30/18 09:29 05/30/18 09:35 05/30/18 09:44 Temperature Pulse Rate 72 104 H 92 H Respiratory Rate 10 L 31 H 13 Blood Pressure 153/103 H 121/60 109/60 Pulse Oximetry 96 93 L 96 05/30/18 09:51 05/30/18 09:59 05/30/18 10:00 Temperature Pulse Rate 92 H 91 H Respiratory Rate 19 14 Blood Pressure 108/60 Pulse Oximetry 96 96 96 05/30/18 10:14 05/30/18 11:07 05/30/18 12:00 Temperature Pulse Rate 91 H 87 89 Respiratory Rate 16 21 22 Blood Pressure 110/59 L 105/61 Pulse Oximetry 95 94 L 95 05/30/18 12:07 05/30/18 12:56 05/30/18 13:00 Temperature 97.8 F Pulse Rate 89 92 H Respiratory Rate 25 H 13 18 Blood Pressure 117/64 Pulse Oximetry 95 94 L 05/30/18 13:07 Temperature Pulse Rate 91 H Respiratory Rate 21 Blood Pressure 118/68 Pulse Oximetry 95 I&O: Intake & Output 05/28/18 05/29/18 05/30/18 05/31/18 06:59 06:59 06:59 06:59 Intake Total 500 / 500 800 / 800 5850 / 5850 2312 / 2312 Output Total 0 / 0 4200 / 4200 Balance 500 / 500 800 / 800 1650 / 1650 2312 / 2312 Weight 165.5 kg 165.5 kg 164.9 kg Physical Exam: CONSTITUTIONAL/GENERAL: This is a morbidly obese pt resting in bed, in no apparent distress. TUBES/LINES/DRAINS: PIV, burch, NC SKIN: No jaundice, rashes, or lesions. rectangular patch erythema on forehead. No wounds seen anteriorly. Skin temperature appropriate. Not diaphoretic. HEAD: Atraumatic. Normocephalic. EYES: Pupils equal and round and reactive. Extraocular motions intact. No scleral icterus. No injection or drainage. Fundi not examined. ENT: Hearing grossly normal. Nose without bleeding or purulent drainage. CARDIOVASCULAR: Regular rate and rhythm without murmurs, gallops, or rubs. No JVD. Peripheral pulses symmetric. RESPIRATORY/CHEST: Symmetric, unlabored respirations. Clear to auscultation. Breath sounds equal bilaterally. No wheezes, rales, or rhonchi. Diminished breath sounds GASTROINTESTINAL: Abdomen soft, non-tender,obese. No hepato-splenomegaly, or palpable masses. No guarding. Bowel sounds present. GENITOURINARY: Without palpable bladder distension. Burch catheter in place. MUSCULOSKELETAL: Extremities without clubbing, cyanosis, or edema. No joint tenderness or effusion noted. No calf tenderness. No mottling or clubbing. NEUROLOGICAL: Awake and alert. Follows commands. Cognitively sharp. minimal movement left foot, strength 1/5, +sensation to moderate pressure. No movement or sensation right foot. PSYCHIATRIC: Flat affect. no apparent hallucinations or other psychotic thought process. Diagnostic Tests Laboratory: Laboratory Results - last 72 hr 05/27/18 05/27/18 05/28/18 18:27 20:50 07:37 WBC RBC Hgb Hct MCV MCH MCHC RDW Plt Count MPV Prelim Diff (Auto) Neut % (Auto) Lymph % (Auto) Isabela % (Auto) Eos % (Auto) Baso % (Auto) Neut # (Auto) Lymph # (Auto) Isabel[place] # (Auto) Eos # (Auto) Baso # (Auto) WBC Differential Seg Neuts % (Manual) Band Neuts % (Manual) Lymphocytes % (Manual) Monocytes % (Manual) Metamyelocytes % (Man) Abs Neuts (Manual) Differential Comment Platelet Estimate Platelet Morphology PT INR APTT Puncture Site Patient Temperature O2 Saturation ABG pH ABG pCO2 ABG pO2 ABG HCO3 ABG O2 Content ABG Base Excess ABG Methemoglobin Jeramie Test Hemoglobin Carboxyhemoglobin O2 Delivery Device Vent Setting Inspired O2 Critical Value Sodium Potassium Chloride Carbon Dioxide Anion Gap BUN Creatinine Estimated GFR POC Glucose 183 H 189 H 222 H Random Glucose Lactic Acid Calcium Blood Type Blood Type Recheck Antibody Screen MTS Gel Crossmatch Bld Prod Order Comment 05/28/18 05/28/18 05/28/18 11:46 17:15 21:44 WBC RBC Hgb Hct MCV MCH MCHC RDW Plt Count MPV Prelim Diff (Auto) Neut % (Auto) Lymph % (Auto) Isabela % (Auto) Eos % (Auto) Baso % (Auto) Neut # (Auto) Lymph # (Auto) Isabel[place] # (Auto) Eos # (Auto) Baso # (Auto) WBC Differential Seg Neuts % (Manual) Band Neuts % (Manual) Lymphocytes % (Manual) Monocytes % (Manual) Metamyelocytes % (Man) Abs Neuts (Manual) Differential Comment Platelet Estimate Platelet Morphology PT INR APTT Puncture Site Patient Temperature O2 Saturation ABG pH ABG pCO2 ABG pO2 ABG HCO3 ABG O2 Content ABG Base Excess ABG Methemoglobin Jeramie Test Hemoglobin Carboxyhemoglobin O2 Delivery Device Vent Setting Inspired O2 Critical Value Sodium Potassium Chloride Carbon Dioxide Anion Gap BUN Creatinine Estimated GFR POC Glucose 253 H 183 H 212 H Random Glucose Lactic Acid Calcium Blood Type Blood Type Recheck Antibody Screen MTS Gel Crossmatch Bld Prod Order Comment 05/29/18 05/29/18 05/29/18 08:12 10:57 10:57 WBC 19.6 H RBC 4.56 Hgb 13.8 Hct 42.0 MCV 92.3 MCH 30.2 MCHC 32.8 RDW 15.1 Plt Count 307 D MPV 8.0 Prelim Diff (Auto) Neut % (Auto) 88.9 H Lymph % (Auto) 3.9 L Isabela % (Auto) 7.0 Eos % (Auto) 0.0 Baso % (Auto) 0.2 Neut # (Auto) 17.5 H Lymph # (Auto) 0.8 L Isabela # (Auto) 1.4 H Eos # (Auto) 0.0 Baso # (Auto) 0.0 WBC Differential . Seg Neuts % (Manual) Band Neuts % (Manual) Lymphocytes % (Manual) Monocytes % (Manual) Metamyelocytes % (Man) Abs Neuts (Manual) Differential Comment Auto diff final Platelet Estimate Platelet Morphology PT 10.7 INR 1.1 APTT 23.5 Puncture Site Patient Temperature O2 Saturation ABG pH ABG pCO2 ABG pO2 ABG HCO3 ABG O2 Content ABG Base Excess ABG Methemoglobin Jeramie Test Hemoglobin Carboxyhemoglobin O2 Delivery Device Vent Setting Inspired O2 Critical Value Sodium Potassium Chloride Carbon Dioxide Anion Gap BUN Creatinine Estimated GFR POC Glucose 208 H Random Glucose Lactic Acid Calcium Blood Type Blood Type Recheck Antibody Screen MTS Gel Crossmatch Bld Prod Order Comment 05/29/18 05/29/18 05/29/18 10:57 10:57 10:57 WBC RBC Hgb Hct MCV MCH MCHC RDW Plt Count MPV Prelim Diff (Auto) Neut % (Auto) Lymph % (Auto) Isabela % (Auto) Eos % (Auto) Baso % (Auto) Neut # (Auto) Lymph # (Auto) Isabela # (Auto) Eos # (Auto) Baso # (Auto) WBC Differential Seg Neuts % (Manual) Band Neuts % (Manual) Lymphocytes % (Manual) Monocytes % (Manual) Metamyelocytes % (Man) Abs Neuts (Manual) Differential Comment Platelet Estimate Platelet Morphology PT INR APTT Cancelled Puncture Site Patient Temperature O2 Saturation ABG pH ABG pCO2 ABG pO2 ABG HCO3 ABG O2 Content ABG Base Excess ABG Methemoglobin Jeramie Test Hemoglobin Carboxyhemoglobin O2 Delivery Device Vent Setting Inspired O2 Critical Value Sodium 138 Potassium 4.3 Chloride 102 Carbon Dioxide 29.1 Anion Gap 7 BUN 36 H Creatinine 1.32 H Estimated GFR 55 L POC Glucose Random Glucose 229 H Lactic Acid Calcium 9.3 Blood Type O Positive Blood Type Recheck Required Antibody Screen Negative MTS Gel Crossmatch Bld Prod Order Comment 05/29/18 05/29/18 05/29/18 10:57 11:44 11:50 WBC RBC Hgb Hct MCV MCH MCHC RDW Plt Count MPV Prelim Diff (Auto) Neut % (Auto) Lymph % (Auto) Isabela % (Auto) Eos % (Auto) Baso % (Auto) Neut # (Auto) Lymph # (Auto) Isabel[place] # (Auto) Eos # (Auto) Baso # (Auto) WBC Differential Seg Neuts % (Manual) Band Neuts % (Manual) Lymphocytes % (Manual) Monocytes % (Manual) Metamyelocytes % (Man) Abs Neuts (Manual) Differential Comment Platelet Estimate Platelet Morphology PT INR APTT Puncture Site Patient Temperature O2 Saturation ABG pH ABG pCO2 ABG pO2 ABG HCO3 ABG O2 Content ABG Base Excess ABG Methemoglobin Jeramie Test Hemoglobin Carboxyhemoglobin O2 Delivery Device Vent Setting Inspired O2 Critical Value Sodium Potassium Chloride Carbon Dioxide Anion Gap BUN Creatinine Estimated GFR POC Glucose 196 H Random Glucose Lactic Acid Calcium Blood Type Blood Type Recheck Antibody Screen MTS Gel Crossmatch See Detail See Detail Bld Prod Order Comment Cancelled 05/29/18 05/29/18 05/29/18 18:40 20:00 20:00 WBC 31.6 H D RBC 3.77 L Hgb 11.1 L D Hct 35.0 L MCV 92.8 MCH 29.5 MCHC 31.8 L RDW 14.7 Plt Count 309 MPV 7.8 Prelim Diff (Auto) Slide review pending Neut % (Auto) Lymph % (Auto) Isabela % (Auto) Eos % (Auto) Baso % (Auto) Neut # (Auto) Lymph # (Auto) Isabela # (Auto) Eos # (Auto) Baso # (Auto) WBC Differential Manual diff final Seg Neuts % (Manual) 89 H Band Neuts % (Manual) 3 Lymphocytes % (Manual) 3 L Monocytes % (Manual) 1 Metamyelocytes % (Man) 4 H Abs Neuts (Manual) 30.3 H Differential Comment . Platelet Estimate Normal Platelet Morphology PT INR APTT Puncture Site Right radial Patient Temperature 98.6 O2 Saturation 96 ABG pH 7.24 L* ABG pCO2 58 H* ABG pO2 142 H ABG HCO3 24 ABG O2 Content 15.0 ABG Base Excess -2.9 L ABG Methemoglobin 1.3 Jeramie Test Present Hemoglobin 11.0 L Carboxyhemoglobin 1.3 O2 Delivery Device Vent Vent Setting Prvc/16/500/5/1.0/ Inspired O2 50 Critical Value Yes Sodium 138 Potassium 5.0 Chloride 103 Carbon Dioxide 24.7 Anion Gap 10 BUN 47 H Creatinine 2.16 H Estimated GFR 31 L POC Glucose Random Glucose 241 H Lactic Acid Calcium 8.3 L D Blood Type Blood Type Recheck Antibody Screen MTS Gel Crossmatch Bld Prod Order Comment 05/29/18 05/30/18 05/30/18 20:00 03:05 04:40 WBC 30.7 H RBC 3.40 L Hgb 10.2 L Hct 31.7 L MCV 93.3 MCH 29.9 MCHC 32.1 RDW 14.9 Plt Count 277 MPV 8.0 Prelim Diff (Auto) Slide review pending Neut % (Auto) 94.7 H Lymph % (Auto) 1.7 L Isabel[place] % (Auto) 3.4 Eos % (Auto) 0.0 Baso % (Auto) 0.2 Neut # (Auto) 29.1 H Lymph # (Auto) 0.5 L Isabel[place] # (Auto) 1.0 H Eos # (Auto) 0.0 Baso # (Auto) 0.1 WBC Differential Manual diff final Seg Neuts % (Manual) 92 H Band Neuts % (Manual) 4 Lymphocytes % (Manual) 2 L Monocytes % (Manual) 2 Metamyelocytes % (Man) Abs Neuts (Manual) 29.5 H Differential Comment . Platelet Estimate Normal Platelet Morphology Normal PT INR APTT Puncture Site Patient Temperature O2 Saturation ABG pH ABG pCO2 ABG pO2 ABG HCO3 ABG O2 Content ABG Base Excess ABG Methemoglobin Jeramie Test Hemoglobin Carboxyhemoglobin O2 Delivery Device Vent Setting Inspired O2 Critical Value Sodium Potassium Chloride Carbon Dioxide Anion Gap BUN Creatinine Estimated GFR POC Glucose Random Glucose Lactic Acid 3.9 H 1.7 Calcium Blood Type Blood Type Recheck Antibody Screen MTS Gel Crossmatch Bld Prod Order Comment 05/30/18 05/30/18 05/30/18 04:40 05:21 08:54 WBC RBC Hgb Hct MCV MCH MCHC RDW Plt Count MPV Prelim Diff (Auto) Neut % (Auto) Lymph % (Auto) Isabela % (Auto) Eos % (Auto) Baso % (Auto) Neut # (Auto) Lymph # (Auto) Isabel[place] # (Auto) Eos # (Auto) Baso # (Auto) WBC Differential Seg Neuts % (Manual) Band Neuts % (Manual) Lymphocytes % (Manual) Monocytes % (Manual) Metamyelocytes % (Man) Abs Neuts (Manual) Differential Comment Platelet Estimate Platelet Morphology PT INR APTT Puncture Site Right radial Patient Temperature 98.6 O2 Saturation 95 ABG pH 7.43 H ABG pCO2 38 ABG pO2 130 H ABG HCO3 25 ABG O2 Content 13.0 ABG Base Excess 1.0 ABG Methemoglobin 1.6 Jeramie Test Present Hemoglobin 9.6 L Carboxyhemoglobin 1.0 O2 Delivery Device Ventilator Vent Setting 16/600/[id number]/it1.0 Inspired O2 40 Critical Value No Sodium 138 Potassium 4.6 Chloride 104 Carbon Dioxide 27.5 Anion Gap 7 BUN 47 H Creatinine 1.61 H Estimated GFR 44 L POC Glucose 299 H Random Glucose 285 H Lactic Acid Calcium 8.1 L Blood Type Blood Type Recheck Antibody Screen MTS Gel Crossmatch Bld Prod Order Comment 05/30/18 12:52 WBC RBC Hgb Hct MCV MCH MCHC RDW Plt Count MPV Prelim Diff (Auto) Neut % (Auto) Lymph % (Auto) Isabela % (Auto) Eos % (Auto) Baso % (Auto) Neut # (Auto) Lymph # (Auto) Isabela # (Auto) Eos # (Auto) Baso # (Auto) WBC Differential Seg Neuts % (Manual) Band Neuts % (Manual) Lymphocytes % (Manual) Monocytes % (Manual) Metamyelocytes % (Man) Abs Neuts (Manual) Differential Comment Platelet Estimate Platelet Morphology PT INR APTT Puncture Site Patient Temperature O2 Saturation ABG pH ABG pCO2 ABG pO2 ABG HCO3 ABG O2 Content ABG Base Excess ABG Methemoglobin Jeramie Test Hemoglobin Carboxyhemoglobin O2 Delivery Device Vent Setting Inspired O2 Critical Value Sodium Potassium Chloride Carbon Dioxide Anion Gap BUN Creatinine Estimated GFR POC Glucose 222 H Random Glucose Lactic Acid Calcium Blood Type Blood Type Recheck Antibody Screen MTS Gel Crossmatch Bld Prod Order Comment Result Diagrams: 05/30/18 04:40 05/30/18 04:40 Imaging: ITS Impressions Lumbar Spine CT 05/25/18 15:05 CONCLUSION: 1. Mild broad-based disc bulge L2-3 without canal stenosis. 2. Moderate broad-based disc bulge at L3-4 in conjunction with hypertrophic facets causes severe canal stenosis. 3. Moderate right-sided protrusion L4-5 causes mild canal stenosis. Thoracic Spine CT 05/25/18 15:05 CONCLUSION: 1. Pathologic fracture with moderate compression deformity at T3. There does appear to be a large soft tissue component encroaching upon the thecal sac and causing severe canal stenosis. The exam is somewhat limited due to image degradation. 2. Kyphosis and diffuse degenerative changes. Thoracic Spine MRI 05/25/18 18:03 CONCLUSION: 1. Suspected pathological fracture at the T3 vertebral body resulting in severe stenosis. 2. Multiple masses in the left lung and lymph nodes in the mediastinum. The lungs and mediastinum aren't well evaluated on this MRI examination of the thoracic spine. Lumbar Spine MRI 05/25/18 18:49 CONCLUSION: 1. No focal lesions are seen. 2. Moderate narrowing of the thecal sac at the L3-L4 level primarily secondary to facet and ligamentum flavum hypertrophy. 3. Right-sided disc protrusion causing mild impression on the right lateral recess and right neural foraminal regions at the L4-L5 level. 4. Sacralization of L5. This is a normal variant. Cervical Spine X-Ray 05/29/18 00:00 CONCLUSION: Intraoperative localizing study. Chest X-Ray 05/29/18 00:00 CONCLUSION: 1. Multiple lines and tubes in place. Postsurgical findings of the left mid thorax with likely drainage catheter the left-sided mediastinum. 2. Low lung volumes with patchy bilateral lower lung zone opacity. No evidence of pleural effusion or pneumothorax. Procedures: 05/29 bilat lami, spinal cord decompression, resection tumor 05/30 extubated Patient/Family Conference Present at Family Conference: Pt, , sister, daughter Family Conference Time: 36 Family Conference Location: Bedside Issues Discussed: * Palliative care role, purpose, approach * Additional medical, psychosocial, and spiritual history * Patients general health, functional status, and cognitive changes in the months leading up to the current hospitalization * Patient/family understanding of the current medical problems * Patient/family understanding of prognosis * Patients goals of care as best understood from conversations and/or values - pending * Current medical treatment options and benefits/burdens of those options * Likely scenarios comparing ongoing aggressive care with a transition to comfort measures only * introduced hospice * code status - pending * Questions answered to the best of my ability * Palliative care contact information provided Goals, code status pending. Pt and family to discuss. Family reported pt not enthusiastic about going to rehab, presented alternative option of going home with hospice. Discussed d/c to rehab and possibility of nursing facility after that. Pt did not seem inclined to wish reintubation and mech ventilation if necessary but family was pressuring him to remain full code. Gently explained that further treatments are unlikely to benefit him or make a difference in the progression of his cancer and that it was felt to be unlikely that he will regain full use of his legs. They did grasp that these are all issues that affect quality of life. Family is a bit overwhelmed and struggling with the sudden acute decline. They were receptive to brief discussion of hospice but were not ready to make any decisions. Encouraged them to discuss aforementioned issues and topics amongst themselves. They were agreeable to continued palliative care follow up. 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 He is a [place]. Has 1 daughter. Owns a Ecal. Spending time with family and his dog are important to him and what make him happy. Spiritual: sikh is important but pt declines pastoral care at this time. Legal: Pt is decision maker. Should he become incapacitated, proxy medical decision making would fall to his . Ethical issues impacting care: none Important Contacts: Stacy [phone] Prognosis: 62 y/o morbidly obese male with metastatic squamous cell skin ca of left exilla , pulmonary mets, hx radiation pneumonitis who has had no success with immunotherapy, chemotherapy, radiation, surgical intervention. Course complicated by development of radiation pneumonitis. REcently developed acute BLE weakness and paralysis and pathologic fx spine. AFter surgical intervention he remains paralysed. It is unlikely he will regain full use of his lower extremities or benefit from additional treatments for his malignancy. Unlikely he will return to prior baseline. He remains at risk for deconditioning, further decline, and complications. Code Status: Full Code Plan: - LEGAL DECISION MAKER -patient is a decision maker. Should he become incapacitated, per [place] statute proxy medical decision making would fall to his - CODE STATUS- full code but pt to christiano over further - GOALS - pending - SYMPTOMS - = dyspnea - multifactorial, 2/2 obesity/OHS, hx radiation pneumonitis, lung mets. = anxiety- multifactorial. has PRN alprazolam 0.5 mg BID. Last had 05/28. = pain - multifactorial 2/2 post surgical pain, malignancy, immobility. has PRN apap, PRN oxycodone 5 - 10 mg. had 1st dose few hours ago, just initiated = debility - 2/2 pathologic fx & spinal mass s/p resection, remains paralysed - d/w [facility] - d/w Dr Melchor - will f/u 06/01 - Palliative care will continue to follow during hospital course as condition evolves, to assist patient/decision-maker with understanding of medical conditions, weighing benefits/burdens of treatment options, for clarification of goals of treatment. Additionally will assist with any symptoms of palliative concern Appreciation Thank you for the opportunity to participate in the care of Otis Gurpreet Triana JR. Attestation Attestation: To help prompt me to consider important information that might be impacting today's encounter and assessment, information from prior notes written by myself or my colleagues may have been "brought forward" into today's note. My signature on this note, however, is an attestation that I personally performed the exam, history, and/or decision-making noted today, and, unless otherwise indicated, the interactions with patient, family, and staff as well as the review of records all occurred today. I also attest that the listed assessment and stated plan reflect my best clinical judgment today based on the combination of historical information, prior notes, and today's exam/ interactions. When time spent is documented, it refers only to time spent today by the signer, or if indicated, combined time spent today by collaborating physician/nurse practitioner.
--- NOTE | 2018-05-30 16:29 | P.DIET ---
Nutritional Evaluation Screening comments: [facility] [place]. Pt has been extubated and diet advanced so he no longer requires TFing recommendations. Please ReConsult RD if needed for any other reasons.
[2018-05-30] MEDS: ALPRAZolam 0.5 MG Tablet PO PRN (16:30)
[2018-05-30] MEDS: Enoxaparin Inj 40 MG/0.4 ML Syringe SQ SCH (17:34)
[2018-05-31] MEDS: ALPRAZolam 0.5 MG Tablet PO PRN ×2 (04:40→16:06)
[2018-05-31 06:56] LABS: Baso % (Auto) 0.1 % (0.0-2.0); Hematocrit 32.1 % (39.0-51.0); Hemoglobin 10.3 gm/dL (13.0-17.0); Lymph # (Auto) 0.4 th/mm3 (1.0-4.8); Lymph % (Auto) 1.6 % (9.0-44.0); Mean Corpuscular Volume 93.8 fL (80.0-100.0); Mean Platelet Volume 8.1 fL (7.0-11.0); Mono # (Auto) 1.2 th/mm3 (0.0-0.9); Mono % (Auto) 4.3 % (0.0-8.0); Neut # (Auto) 25.6 th/mm3 (1.8-7.7); Platelet Count 243 th/mm3 (150-450); Red Blood Count 3.42 mil/mm3 (4.50-5.90); Red Cell Distribution Width 14.9 % (11.6-17.2); White Blood Count 27.2 th/mm3 (4.0-11.0)
[2018-05-31 07:18] LABS: Calcium 8.8 mg/dL (8.5-10.1); Carbon Dioxide 28.8 meq/L (21.0-32.0); Potassium 5.1 meq/L (3.5-5.1)
--- NOTE | 2018-05-31 08:00 | P.PNCC ---
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 On admission to the hospital he had some stability issues with walking but suddenly now he is functionally paraplegic below that level. The primary site of this metastatic process may be the left axilla or the lung; unclear from the chart. Both lung arteaga are littered with metastatic lesions. He is on his way to the operating room now for emergency decompression of the cord and stabilization of the upper thoracic spine and I am seen him in preparation for his postoperative care in the intensive care unit. INR is 1.1 and platelet count is 307,000. The patient noticeably hypoventilates due to morbid obesity and chest wall discomfort. Glucose intolerance is observed, exacerbated by pulse steroid therapy. The patient is on chronic narcotic analgesics at home. 1800 hrs. : Back from OR after T2 - T4 bilateral laminectomies. Neosynephrine infusion. 5 liters crystalloid. Mechanical ventilation via orotracheal intubation. 05/30/18: No overnight events, patient is purposeful but does not follow commands during sedation breaks as per RN. No movement of lower extremities. Still on low -dose matteo. 05/31: Successfully extubated yesterday morning, off all pressors since sedation was held. Per RN, patient has been straight cathed every 6 hours and is putting out nearly a liter of urine each time; he has no sensation of fullness or urge to urinate. Objective Vital Signs / I&O: Vital Signs 05/30/18 07:59 05/30/18 08:00 05/30/18 08:14 Temperature Pulse Rate 55 L 55 L 55 L Respiratory Rate 16 16 15 Blood Pressure 110/59 L 113/59 L Pulse Oximetry 98 98 98 05/30/18 08:29 05/30/18 08:41 05/30/18 08:44 Temperature 97.7 F Pulse Rate 58 L 53 L Respiratory Rate 13 16 Blood Pressure 112/60 116/62 Pulse Oximetry 98 98 97 05/30/18 08:59 05/30/18 09:00 05/30/18 09:14 Temperature Pulse Rate 51 L 51 L 51 L Respiratory Rate 16 16 16 Blood Pressure 118/67 117/58 L Pulse Oximetry 98 98 99 05/30/18 09:29 05/30/18 09:35 05/30/18 09:44 Temperature Pulse Rate 72 104 H 92 H Respiratory Rate 10 L 31 H 13 Blood Pressure 153/103 H 121/60 109/60 Pulse Oximetry 96 93 L 96 05/30/18 09:51 05/30/18 09:59 05/30/18 10:00 Temperature Pulse Rate 92 H 91 H Respiratory Rate 19 14 Blood Pressure 108/60 Pulse Oximetry 96 96 96 05/30/18 10:14 05/30/18 11:07 05/30/18 12:00 Temperature Pulse Rate 91 H 87 89 Respiratory Rate 16 21 22 Blood Pressure 110/59 L 105/61 Pulse Oximetry 95 94 L 95 05/30/18 12:07 05/30/18 12:56 05/30/18 13:00 Temperature 97.8 F Pulse Rate 89 92 H Respiratory Rate 25 H 13 18 Blood Pressure 117/64 Pulse Oximetry 95 94 L 05/30/18 13:07 05/30/18 14:00 05/30/18 14:07 Temperature Pulse Rate 91 H 93 H 94 H Respiratory Rate 21 24 20 Blood Pressure 118/68 111/66 Pulse Oximetry 95 95 95 05/30/18 15:07 05/30/18 16:00 05/30/18 16:07 Temperature 97.6 F Pulse Rate 98 H 101 H 102 H Respiratory Rate 13 25 H 26 H Blood Pressure 120/68 122/67 Pulse Oximetry 95 94 L 94 L 05/30/18 17:00 05/30/18 17:07 05/30/18 18:00 Temperature Pulse Rate 105 H 101 H 98 H Respiratory Rate 37 H 28 H 25 H Blood Pressure 110/58 L Pulse Oximetry 95 95 95 05/30/18 18:07 05/30/18 19:00 05/30/18 19:07 Temperature Pulse Rate 102 H 101 H 102 H Respiratory Rate 31 H 23 27 H Blood Pressure 104/55 L 127/60 Pulse Oximetry 95 94 L 94 L 05/30/18 19:17 05/30/18 20:00 05/30/18 20:07 Temperature 98.1 F Pulse Rate 101 H 101 H Respiratory Rate 25 H 33 H Blood Pressure 123/59 L Pulse Oximetry 93 L 95 94 L 05/30/18 21:00 05/30/18 21:07 05/30/18 22:00 Temperature Pulse Rate 101 H 101 H 98 H Respiratory Rate 27 H 27 H 28 H Blood Pressure 115/56 L Pulse Oximetry 95 95 94 L 05/30/18 22:09 05/30/18 23:00 05/30/18 23:07 Temperature Pulse Rate 113 H 97 H 99 H Respiratory Rate 41 H 14 20 Blood Pressure 125/70 129/66 Pulse Oximetry 93 L 96 95 05/31/18 00:00 05/31/18 00:07 05/31/18 01:00 Temperature 98.0 F Pulse Rate 107 H 110 H 102 H Respiratory Rate 27 H 25 H 22 Blood Pressure 147/67 H Pulse Oximetry 94 L 95 95 05/31/18 01:07 05/31/18 02:00 05/31/18 02:07 Temperature Pulse Rate 99 H 101 H 106 H Respiratory Rate 12 28 H 28 H Blood Pressure 122/67 149/67 H Pulse Oximetry 95 95 94 L 05/31/18 03:00 05/31/18 03:07 05/31/18 04:00 Temperature 98 F Pulse Rate 96 H 95 H 95 H Respiratory Rate 25 H 21 22 Blood Pressure 122/59 L Pulse Oximetry 97 96 95 05/31/18 04:07 05/31/18 05:00 05/31/18 05:07 Temperature Pulse Rate 96 H 94 H 94 H Respiratory Rate 21 19 17 Blood Pressure 120/58 L 131/61 Pulse Oximetry 95 96 96 05/31/18 06:00 05/31/18 06:07 05/31/18 07:23 Temperature Pulse Rate 98 H 100 H Respiratory Rate 29 H 30 H Blood Pressure 119/57 L Pulse Oximetry 94 L 94 L 95 Intake & Output 05/30/18 05/31/18 05/31/18 18:59 06:59 18:59 Intake Total 2962 / 2962 500 / 500 Output Total 2495 / 2495 2040 / 2040 Balance 467 / 467 -1540 / -1540 Weight 163 kg Intake: IV 2312 / 2312 Precedex Inj 200 MCG In NS Inj 48 ML @ 0.2 MCG/KG/HR 8.24 mls/ hr IV.CONT TITRATE PRN Rx#: [id number] Neosynephrine Inj 80 MG In D5W 500 / 500 Inj 492 ML @ 40 MCG/MIN 15 mls/ hr IV.CONT TITRATE PRN Rx#: [id number] Diprivan 1000 mg/100 ml Inj 1, 165 / 165 000 mg In 100 ml @ 5 MCG/KG/MIN 4.965 mls/hr IV.CONT TITRATE PRN Rx#:[id number] NS Inj 1,000 ML @ 84 mls/hr IV. 1289 / 1289 CONT .[id number] BALTAZAR Rx#:[id number] Ancef 2 GM Premix Inj 2 gm In 50 / 50 50 ml @ 100 mls/hr IV.SIG Q8H [facility] Rx#:[id number] fentaNYL 10 mcg/mL Premix Drip 300 / 300 2,500 mcg In 250 ml @ 50 MCG/HR 5 mls/hr IV.SIG TITRATE PRN Rx #:[id number] Oral 650 / 650 500 / 500 Output: Urine 1999 / 1999 Urine Amount (Catheter) 2375 / 2375 1 2375 / 2375 Gastric Drainage 100 / 100 Oral Orogastric Tube 100 / 100 Wound Drainage 20 / 20 40 / 40 # 1 Posterior LUCHO Drain 20 / 20 40 / 40 Other: # Bowel Movements 0 Result Diagrams: 05/31/18 06:10 05/31/18 06:10 Objective Remarks: GEN: Well-appearing elderly male, no acute distress HEENT: NCAT NECK: Trachea midline CARDIO: Regular rate and rhythm PULM: Clear to auscultation bilaterally ABD/GI: Soft, non-distended, non-tender in all quadrants EXT/MSK: No peripheral edema SKIN: Warm and well-perfused, trace peripheral edema NEURO: Awake and alert, no movement of bilateral lower extremities, motor strength 5/5 in upper extremities PSYCH: Calm Assessment and Plan - Assessment and Plan Plan: Assessment: 62yM with pathologic T3 fracture and spinal cord impingement from metastatic squamous cell CA s/p resection Plan by systems: NEURO: Thoracic metastatic vertebral lesion (T3) with spinal cord compression Pathologic T3 fracture Lower extremity paraplegia H/O squamous cell carcinoma -POD #2 s/p B/L T2-4 laminectomies with resection of epidural tumor and spinal cord decompression -Continue dexamethasone -Home dose of xanax restarted yesterday, continue oxycodone PRN pain control -PT/OT evals appreciated CARDIO: Hypotension Bradycardia -Off all pressors x 24 hrs -Bradycardia also resolved once sedation was held -Not on any home antihypertensives PULM: -Extubated without difficulty yesterday -Incentive spirometer, encourage deep breathing/ coughing F/E/N, RENAL: Acute kidney injury -ICU electrolyte protocol -Acute kidney injury- now resolved -Straight cath every 4 hours scheduled GI: Mild protein calorie malnutrition as evidenced by hypoalbuminemia on admission Morbid obesity -Tolerating diabetic diet -SSI -Multivitamin supplementation -Daily dulcolax suppository ID: -Finished course of aurelia-op Ancef PROPHY: -PPI -SCDs, Lovenox Oral impression: This patient is recovering well from his surgery and has been stable since he was extubated yesterday morning. He requires continued ICU level of care for aggressive pulmonary toilet. Level 2 follow up To help prompt me to consider important information that might be impacting today's encounter and assessment, information from prior notes written by myself or my colleagues may have been "brought forward" into today's note. My signature on this note, however, is an attestation that I personally performed the exam, history, and/or decision-making noted today, and, unless otherwise indicated, the interactions with patient, family, and staff as well as the review of records all occurred today. I also attest that the listed assessment and stated plan reflect my best clinical judgment today based on the combination of historical information, prior notes, and today's exam/ interactions. Code Status: Full
[2018-05-31] MEDS: Multivit/Folic Acid/Minerals Chewable Tablets CHEW SCH (09:54)
[2018-05-31] MEDS: Senna/Docusate Sodium 8.6/50 MG Tablet PO SCH ×2 (09:54→21:14)
--- NOTE | 2018-05-31 09:55 | P.PNNS ---
Subjective Interval history: May 31, 2018 The patient has been stable overnight. He has some mild shortness of breath. He is receiving respiratory therapy. He complains of only mild incisional thoracic spine pain. Physical Exam Vital signs: Vital Signs 05/30/18 09:51 05/30/18 09:59 05/30/18 10:00 Temperature Pulse Rate 92 H 91 H Respiratory Rate 19 14 Blood Pressure 108/60 Pulse Oximetry 96 96 96 05/30/18 10:14 05/30/18 11:07 05/30/18 12:00 Temperature Pulse Rate 91 H 87 89 Respiratory Rate 16 21 22 Blood Pressure 110/59 L 105/61 Pulse Oximetry 95 94 L 95 05/30/18 12:07 05/30/18 12:56 05/30/18 13:00 Temperature 97.8 F Pulse Rate 89 92 H Respiratory Rate 25 H 13 18 Blood Pressure 117/64 Pulse Oximetry 95 94 L 05/30/18 13:07 05/30/18 14:00 05/30/18 14:07 Temperature Pulse Rate 91 H 93 H 94 H Respiratory Rate 21 24 20 Blood Pressure 118/68 111/66 Pulse Oximetry 95 95 95 05/30/18 15:07 05/30/18 16:00 05/30/18 16:07 Temperature 97.6 F Pulse Rate 98 H 101 H 102 H Respiratory Rate 13 25 H 26 H Blood Pressure 120/68 122/67 Pulse Oximetry 95 94 L 94 L 05/30/18 17:00 05/30/18 17:07 05/30/18 18:00 Temperature Pulse Rate 105 H 101 H 98 H Respiratory Rate 37 H 28 H 25 H Blood Pressure 110/58 L Pulse Oximetry 95 95 95 05/30/18 18:07 05/30/18 19:00 05/30/18 19:07 Temperature Pulse Rate 102 H 101 H 102 H Respiratory Rate 31 H 23 27 H Blood Pressure 104/55 L 127/60 Pulse Oximetry 95 94 L 94 L 05/30/18 19:17 05/30/18 20:00 05/30/18 20:07 Temperature 98.1 F Pulse Rate 101 H 101 H Respiratory Rate 25 H 33 H Blood Pressure 123/59 L Pulse Oximetry 93 L 95 94 L 05/30/18 21:00 05/30/18 21:07 05/30/18 22:00 Temperature Pulse Rate 101 H 101 H 98 H Respiratory Rate 27 H 27 H 28 H Blood Pressure 115/56 L Pulse Oximetry 95 95 94 L 05/30/18 22:09 05/30/18 23:00 05/30/18 23:07 Temperature Pulse Rate 113 H 97 H 99 H Respiratory Rate 41 H 14 20 Blood Pressure 125/70 129/66 Pulse Oximetry 93 L 96 95 05/31/18 00:00 05/31/18 00:07 05/31/18 01:00 Temperature 98.0 F Pulse Rate 107 H 110 H 102 H Respiratory Rate 27 H 25 H 22 Blood Pressure 147/67 H Pulse Oximetry 94 L 95 95 05/31/18 01:07 05/31/18 02:00 05/31/18 02:07 Temperature Pulse Rate 99 H 101 H 106 H Respiratory Rate 12 28 H 28 H Blood Pressure 122/67 149/67 H Pulse Oximetry 95 95 94 L 05/31/18 03:00 05/31/18 03:07 05/31/18 04:00 Temperature 98 F Pulse Rate 96 H 95 H 95 H Respiratory Rate 25 H 21 22 Blood Pressure 122/59 L Pulse Oximetry 97 96 95 05/31/18 04:07 05/31/18 05:00 05/31/18 05:07 Temperature Pulse Rate 96 H 94 H 94 H Respiratory Rate 21 19 17 Blood Pressure 120/58 L 131/61 Pulse Oximetry 95 96 96 05/31/18 06:00 05/31/18 06:07 05/31/18 07:23 Temperature Pulse Rate 98 H 100 H Respiratory Rate 29 H 30 H Blood Pressure 119/57 L Pulse Oximetry 94 L 94 L 95 Intake & Output 05/30/18 05/31/18 05/31/18 18:59 06:59 18:59 Intake Total 2962 / 2962 500 / 500 Output Total 2495 / 2495 2040 / 2040 Balance 467 / 467 -1540 / -1540 Weight 163 kg Intake: IV 2312 / 2312 Precedex Inj 200 MCG In NS Inj 48 ML @ 0.2 MCG/KG/HR 8.24 mls/ hr IV.CONT TITRATE PRN Rx#: [id number] Neosynephrine Inj 80 MG In D5W 500 / 500 Inj 492 ML @ 40 MCG/MIN 15 mls/ hr IV.CONT TITRATE PRN Rx#: [id number] Diprivan 1000 mg/100 ml Inj 1, 165 / 165 000 mg In 100 ml @ 5 MCG/KG/MIN 4.965 mls/hr IV.CONT TITRATE PRN Rx#:[id number] NS Inj 1,000 ML @ 84 mls/hr IV. 1289 / 1289 CONT .[id number] BALTAZAR Rx#:[id number] Ancef 2 GM Premix Inj 2 gm In 50 / 50 50 ml @ 100 mls/hr IV.SIG Q8H BALTAZAR Rx#:[id number] fentaNYL 10 mcg/mL Premix Drip 300 / 300 2,500 mcg In 250 ml @ 50 MCG/HR 5 mls/hr IV.SIG TITRATE PRN Rx #:[id number] Oral 650 / 650 500 / 500 Output: Urine 1999 / 1999 Urine Amount (Catheter) 2375 / 2375 1 2375 / 2375 Gastric Drainage 100 / 100 Oral Orogastric Tube 100 / 100 Wound Drainage 20 / 20 40 / 40 # 1 Posterior LUCHO Drain 20 / 20 40 / 40 Other: # Bowel Movements 0 - Routine Neurological Exam May 31, 2018 Patient is lying in bed. He is in no acute distress. His daughter sits next to him. On neurological examination, mental status testing finds him to be awake and alert. He is oriented by 3. Cognitive functions grossly intact. His speech is fluent. Cranial nerve testing 2 through 12 is grossly intact. He remains essentially paraplegic with 1+/5+ movement of the left hip flexor sensory evaluation reveals an incomplete roughly T6 sensory level with loss of position sense on the left with some preservation of position sense on the right. He is incontinent of bowel and bladder requires a straight catheter routine. Thoracic wound reveals that the dressing is dry and intact. The LUCHO drain remains in place. - Urinary Catheter Management 1 Cath placed during this visit: yes, but has since been removed by the nurse Reason for continuing: Not indwelling catheter Insertion date: 05/29/18 Insertion time: 13:20 Removal date: 05/30/18 Removal time: 18:00 Assessment and Plan - Plan 64 yo male with acute onset of BLE weakness with Rt>>Lt. Stable nEURO EXAM Right lower extremity shows possible early cellulitis,needs further workup T spine CT shows significant compression fracture with mild retropulsion although images are degraded due to morbid obesity. T and L-spine MRI with and without Gadolinium shows compression from complex T3 pathologic fracture Appreciate STAT Rad Onc Consult for XrT to T3 area which, he is starting today. Decadron 10 mg IV q6h for the next 3 days and then would taper No indication for Neurosurgical Intervention at this time, will sign off and be available as needed. Discussed with patient and Daughter. All questions were answered today. May 29, 2018 The patient has developed a profound neurological deficit essentially paraplegic at this point. He has an incomplete sensory loss. He is incontinent of urine. Therapeutic options were discussed with the patient and the family. Surgical decompression was offered. Specifically bilateral laminectomies of T2-T3 and T4 with resection of tumor and spinal cord decompression. The risks, benefits, limitations, complications, and alternatives to surgery were discussed and enumerated and no guarantees were afforded. They understood this and are requesting surgical intervention. Informed consent has been obtained. The patient will be brought to the operating emergently. The pre-operative orders have been submitted. May 30, 2018 The patient is stable postoperative day #1 status post T2-T4 laminectomies for spinal cord decompression and resection of epidural tumor. Unfortunately the patient remains essentially paraplegic postoperatively as he was preoperatively. He is to continue the present management he will require extensive course of rehabilitation and probably will need to be transferred for a course of inpatient rehabilitation. At this point, he needs mobilization and physical as well as Occupational Therapy. Pharmacological DVT prophylaxis can be restarted. I discussed this all with his family at the bedside. I also informed Dr. Kevin Conde, radiation oncologist that the patient delivered emergent surgical intervention and that radiation therapy at this point to his spine that need to be delayed. I also discussed case with the soil field technician. I would continue the present management. Neurosurgery will follow. May 31, 2018 Patient remained stable postoperative day #1 status post T2 through T4 laminectomies for spinal cord decompression and resection of an epidural tumor. He has some shortness of breath and is mildly hypoxic. He is undergoing aggressive respiratory therapy. He is being medically managed by the soil field technician, and I would continue the present management. He remains essentially paraplegic. He requires mobilization and rehabilitation. Neurosurgery will follow.
[2018-05-31] MEDS: Insulin NovoLOG Aspart Correctional Sugar Inj SQ SCH ×4 (09:59→21:14)
[2018-05-31] MEDS: Bisacodyl 10 MG Supp RECTAL SCH (15:52)
[2018-05-31] MEDS: Enoxaparin Inj 40 MG/0.4 ML Syringe SQ SCH (19:28)
[2018-06-01 04:27] LABS: Baso # (Auto) 0.2 th/mm3 (0.0-0.2); Hematocrit 32.2 % (39.0-51.0); Hemoglobin 10.5 gm/dL (13.0-17.0); Lymph # (Auto) 0.5 th/mm3 (1.0-4.8); Mean Corpuscular HGB Conc 32.6 % (32.0-36.0); Mean Corpuscular Hemoglobin 30.2 pg (27.0-34.0); Mean Corpuscular Volume 92.4 fL (80.0-100.0); Mean Platelet Volume 7.9 fL (7.0-11.0); Mono % (Auto) 4.5 % (0.0-8.0); Neut # (Auto) 21.4 th/mm3 (1.8-7.7); Neut % (Auto) 92.5 % (16.0-70.0); Platelet Count 256 th/mm3 (150-450); Red Blood Count 3.48 mil/mm3 (4.50-5.90); Red Cell Distribution Width 14.8 % (11.6-17.2); White Blood Count 23.2 th/mm3 (4.0-11.0)
[2018-06-01 04:57] LABS: Calcium 9.1 mg/dL (8.5-10.1); Carbon Dioxide 32.5 meq/L (21.0-32.0)
[2018-06-01] MEDS ORDERED: Labetalol HCl Inj 100 MG/20 ML Vial IV.PUSH PRN (05:22)
[2018-06-01 05:57] LABS: Platelet Estimate Normal (Normal); Platelet Morphology Normal (Normal)
--- NOTE | 2018-06-01 07:25 | P.PNCC ---
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 On admission to the hospital he had some stability issues with walking but suddenly now he is functionally paraplegic below that level. The primary site of this metastatic process may be the left axilla or the lung; unclear from the chart. Both lung arteaga are littered with metastatic lesions. He is on his way to the operating room now for emergency decompression of the cord and stabilization of the upper thoracic spine and I am seen him in preparation for his postoperative care in the intensive care unit. INR is 1.1 and platelet count is 307,000. The patient noticeably hypoventilates due to morbid obesity and chest wall discomfort. Glucose intolerance is observed, exacerbated by pulse steroid therapy. The patient is on chronic narcotic analgesics at home. 1800 hrs. : Back from OR after T2 - T4 bilateral laminectomies. Neosynephrine infusion. 5 liters crystalloid. Mechanical ventilation via orotracheal intubation. 05/30/18: No overnight events, patient is purposeful but does not follow commands during sedation breaks as per RN. No movement of lower extremities. Still on low -dose matteo. 05/31: Successfully extubated yesterday morning, off all pressors since sedation was held. Per RN, patient has been straight cathed every 6 hours and is putting out nearly a liter of urine each time; he has no sensation of fullness or urge to urinate. 06/01: Patient was notably restless and tachypneic throughout the day yesterday which was only minimally relieved with neb treatments, lasix, and PRN Xanax. He was placed on bipap yesterday evening and tolerated it well throughout the night. He is asking to have the mask removed this morning and reports that he still feels very anxious. He is being intermittently straight cathed q4h for urinary retention but is putting out nearly a liter and a half of urine each time; will change back to Schmidt today. Objective Vital Signs / I&O: Vital Signs 05/31/18 07:23 05/31/18 08:00 05/31/18 08:07 Temperature 97.7 F Pulse Rate 104 H Respiratory Rate 34 H Blood Pressure 161/82 H Pulse Oximetry 95 95 94 L 05/31/18 09:07 05/31/18 10:07 05/31/18 11:07 Temperature Pulse Rate 102 H 101 H 98 H Respiratory Rate 37 H 28 H 31 H Blood Pressure 145/71 H 151/77 H 145/70 H Pulse Oximetry 94 L 94 L 95 05/31/18 12:07 05/31/18 13:07 05/31/18 13:14 Temperature 98.0 F Pulse Rate 97 H 95 H 98 H Respiratory Rate 32 H 33 H 28 H Blood Pressure 153/72 H 149/70 H Pulse Oximetry 94 L 94 L 05/31/18 14:07 05/31/18 15:00 05/31/18 15:05 Temperature Pulse Rate 97 H 96 H 102 H Respiratory Rate 35 H 37 H 28 H Blood Pressure 144/67 H Pulse Oximetry 94 L 94 L 05/31/18 15:07 05/31/18 16:07 05/31/18 17:00 Temperature Pulse Rate 100 H 100 H 95 H Respiratory Rate 35 H 39 H 30 H Blood Pressure 163/73 H 160/77 H Pulse Oximetry 95 93 L 94 L 05/31/18 17:07 05/31/18 18:00 05/31/18 18:07 Temperature Pulse Rate 96 H 111 H 103 H Respiratory Rate 32 H 49 H 32 H Blood Pressure 151/67 H 165/78 H Pulse Oximetry 94 L 91 L 96 05/31/18 18:17 05/31/18 19:00 05/31/18 19:07 Temperature 98.2 F Pulse Rate 95 H 95 H Respiratory Rate 31 H 31 H Blood Pressure 165/73 H Pulse Oximetry 96 96 96 05/31/18 20:00 05/31/18 20:05 05/31/18 20:07 Temperature Pulse Rate 89 96 H Respiratory Rate 19 26 H Blood Pressure 149/67 H Pulse Oximetry 97 97 97 05/31/18 20:09 05/31/18 21:00 05/31/18 21:07 Temperature Pulse Rate 93 H 97 H 99 H Respiratory Rate 25 H 21 22 Blood Pressure 175/77 H Pulse Oximetry 97 97 05/31/18 21:24 05/31/18 22:00 05/31/18 22:07 Temperature Pulse Rate 97 H 93 H 97 H Respiratory Rate 25 H 25 H 23 Blood Pressure 167/80 H 151/82 H Pulse Oximetry 96 97 97 05/31/18 23:00 05/31/18 23:24 05/31/18 23:29 Temperature Pulse Rate 98 H 101 H Respiratory Rate 26 H 30 H Blood Pressure 177/91 H Pulse Oximetry 97 96 97 06/01/18 00:00 06/01/18 00:07 06/01/18 01:00 Temperature 98.7 F Pulse Rate 91 H 95 H 90 Respiratory Rate 15 21 22 Blood Pressure 168/83 H Pulse Oximetry 98 97 97 06/01/18 01:07 06/01/18 02:00 06/01/18 02:07 Temperature Pulse Rate 98 H 89 89 Respiratory Rate 27 H 25 H 22 Blood Pressure 160/86 H 151/72 H Pulse Oximetry 96 97 97 06/01/18 03:00 06/01/18 03:07 06/01/18 03:19 Temperature Pulse Rate 101 H 102 H 93 H Respiratory Rate 26 H 28 H 22 Blood Pressure 172/81 H 167/86 H Pulse Oximetry 95 96 97 06/01/18 03:40 06/01/18 04:00 06/01/18 04:07 Temperature 98.4 F Pulse Rate 97 H 97 H 96 H Respiratory Rate 22 29 H 34 H Blood Pressure 174/79 H Pulse Oximetry 97 96 96 06/01/18 04:42 06/01/18 04:47 06/01/18 05:00 Temperature Pulse Rate 100 H 93 H 94 H Respiratory Rate 32 H 25 H 33 H Blood Pressure 182/76 H 175/79 H Pulse Oximetry 95 97 97 06/01/18 05:07 06/01/18 05:11 06/01/18 06:00 Temperature Pulse Rate 90 97 H 79 Respiratory Rate 23 36 H 27 H Blood Pressure 184/78 H 179/80 H 176/76 H Pulse Oximetry 97 97 96 06/01/18 07:02 Temperature Pulse Rate 81 Respiratory Rate 23 Blood Pressure 163/74 H Pulse Oximetry 98 Intake & Output 05/31/18 06/01/18 06/01/18 18:59 06:59 18:59 Intake Total 700 / 700 Output Total 2960 / 2960 2265 / 2265 Balance -2960 / -2960 -1565 / -1565 Weight 159.3 kg Intake: Oral 700 / 700 Output: Urine Amount (Catheter) 2850 / 2850 2175 / 2175 Straight 2850 / 2850 2175 / 2175 Wound Drainage 110 / 110 90 / 90 # 1 Posterior LUCHO Drain 110 / 110 90 / 90 Result Diagrams: 06/01/18 04:15 06/01/18 04:15 Objective Remarks: GEN: Well-appearing elderly male, not currently distressed, tolerating bipap without difficulty HEENT: NCAT NECK: Trachea midline CARDIO: Regular rate and rhythm PULM: Mildly tachypneic, no accessory muscle use, no wheezing or rhonchi, O2 sats mid to high 90s, speaking in complete sentences ABD/GI: Soft, non-distended, non-tender in all quadrants EXT/MSK: 1+ pitting edema to all extremities (worse in uppers than lowers) SKIN: Warm and well-perfused NEURO: Awake and alert, still with no movement of bilateral lower extremities but reports that his sensation is intact PSYCH: Currently calm, not agitated Assessment and Plan - Assessment and Plan Plan: Assessment: 62yM with pathologic T3 fracture and spinal cord compression from metastatic squamous cell CA s/p resection Plan by systems: NEURO: Thoracic metastatic vertebral lesion (T3) with spinal cord compression Pathologic T3 fracture Lower extremity paraplegia H/O squamous cell carcinoma H/O anxiety -POD #3 s/p B/L T2-4 laminectomies with resection of epidural tumor and spinal cord decompression -Continue dexamethasone -Will increase xanax from BID PRN to TID PRN; can start precedex if agitation/ anxiety continues to be an issue -PT/OT -Multipodus boots ordered for patient yesterday -Bed to chair position as often as possible, would like to get out of bed to a chair but this is complicated by the patient's body habitus and bipap use CARDIO: Hypotension- resolved Bradycardia- resolved -Now mildly hypertensive, likely related to anxiety -PRN antihypertensives, anxiolytics as noted above PULM: H/O lung metastases H/O sleep apnea (?) T3 spinal cord lesion -Placed on bipap yesterday afternoon for tachypnea/ respiratory distress. Will trial off bipap this morning but I expect that he will likely need this intermittently throughout the day and nocturnally for now. * The patient and his denied history of sleep apnea to me but he has this listed (on nocturnal CPAP) on admission H&P. * My hopes are that the respiratory distress is more related to wheezing/ anxiety as opposed to intercostal muscle weakness from his T3 lesion. I discussed the possibility of needing re-intubation and possible tracheostomy with the patient and his family yesterday. -Incentive spirometer, encourage deep breathing/ coughing F/E/N, RENAL: Acute kidney injury Acute urinary retention Hyponatremia -ICU electrolyte protocol -Patient appears hypervolemic on exam. He is POD #3 and is likely mobilizing 3rd space fluids. Will give 40 mg lasix this morning, goal net negative 500 cc- 1L today -Will place Schmidt catheter again today as we are diuresing the patient and his urine output is nearly 1.5 L each time he is intermittently straight cathed GI: Mild protein calorie malnutrition as evidenced by hypoalbuminemia on admission Morbid obesity -Tolerating diabetic diet, keep NPO while on bipap -SSI, change protocol from medium to high coverage -Multivitamin supplementation -Bowel regimen PROPHY: -PPI -SCDs, Lovenox Oral impression: This patient has respiratory distress/ tachypnea requiring bipap overnight. He requires continued ICU level of care for close monitoring. He remains at moderate to high risk for requiring re-intubation. Counseling/ Coordination of Care: This patient is critically ill with impairment of one or more vital organ systems with a high probability of imminent or life-threatening deterioration. High-complexity medical decision making was required to support vital organ function and/ or prevent deterioration of the patient's condition. Total critical care time spent is 32 minutes giving full attention to this patient. This includes examining the patient, gathering history from someone other than the patient (i.e. chart review), discussing the patient's care with other providers, managing the patient's non-invasive ventilator settings, ordering and interpreting laboratory values, and documentation. Amount of time is separate from teaching, counseling the patient and/or family, and exclusive of procedures. To help prompt me to consider important information that might be impacting today's encounter and assessment, information from prior notes written by myself or my colleagues may have been "brought forward" into today's note. My signature on this note, however, is an attestation that I personally performed the exam, history, and/or decision-making noted today, and, unless otherwise indicated, the interactions with patient, family, and staff as well as the review of records all occurred today. I also attest that the listed assessment and stated plan reflect my best clinical judgment today based on the combination of historical information, prior notes, and today's exam/ interactions. Code Status: Full
[2018-06-01] MEDS: Senna/Docusate Sodium 8.6/50 MG Tablet PO SCH ×2 (08:05→20:12)
[2018-06-01] MEDS: Multivit/Folic Acid/Minerals Chewable Tablets CHEW SCH (08:06)
[2018-06-01] MEDS: Bisacodyl 10 MG Supp RECTAL SCH (08:16)
[2018-06-01] MEDS: Insulin NovoLOG Aspart Correctional Sugar Inj SQ SCH ×4 (08:40→20:13)
--- NOTE | 2018-06-01 10:53 | P.PNNS ---
Subjective Interval history: June 01, 2018 Patient has remained stable overnight. He required BiPAP respiratory therapy. His pulmonary status has remained stable but he remains short of breath. Physical Exam Vital signs: Vital Signs 05/31/18 11:07 05/31/18 12:07 05/31/18 13:07 Temperature 98.0 F Pulse Rate 98 H 97 H 95 H Respiratory Rate 31 H 32 H 33 H Blood Pressure 145/70 H 153/72 H 149/70 H Pulse Oximetry 95 94 L 94 L 05/31/18 13:14 05/31/18 14:07 05/31/18 15:00 Temperature Pulse Rate 98 H 97 H 96 H Respiratory Rate 28 H 35 H 37 H Blood Pressure 144/67 H Pulse Oximetry 94 L 94 L 05/31/18 15:05 05/31/18 15:07 05/31/18 16:07 Temperature Pulse Rate 102 H 100 H 100 H Respiratory Rate 28 H 35 H 39 H Blood Pressure 163/73 H 160/77 H Pulse Oximetry 95 93 L 05/31/18 17:00 05/31/18 17:07 05/31/18 18:00 Temperature Pulse Rate 95 H 96 H 111 H Respiratory Rate 30 H 32 H 49 H Blood Pressure 151/67 H Pulse Oximetry 94 L 94 L 91 L 05/31/18 18:07 05/31/18 18:17 05/31/18 19:00 Temperature 98.2 F Pulse Rate 103 H 95 H Respiratory Rate 32 H 31 H Blood Pressure 165/78 H Pulse Oximetry 96 96 96 05/31/18 19:07 05/31/18 20:00 05/31/18 20:05 Temperature Pulse Rate 95 H 89 Respiratory Rate 31 H 19 Blood Pressure 165/73 H Pulse Oximetry 96 97 97 05/31/18 20:07 05/31/18 20:09 05/31/18 21:00 Temperature Pulse Rate 96 H 93 H 97 H Respiratory Rate 26 H 25 H 21 Blood Pressure 149/67 H Pulse Oximetry 97 97 05/31/18 21:07 05/31/18 21:24 05/31/18 22:00 Temperature Pulse Rate 99 H 97 H 93 H Respiratory Rate 22 25 H 25 H Blood Pressure 175/77 H 167/80 H Pulse Oximetry 97 96 97 05/31/18 22:07 05/31/18 23:00 05/31/18 23:24 Temperature Pulse Rate 97 H 98 H 101 H Respiratory Rate 23 26 H 30 H Blood Pressure 151/82 H 177/91 H Pulse Oximetry 97 97 96 05/31/18 23:29 06/01/18 00:00 06/01/18 00:07 Temperature 98.7 F Pulse Rate 91 H 95 H Respiratory Rate 15 21 Blood Pressure 168/83 H Pulse Oximetry 97 98 97 06/01/18 01:00 06/01/18 01:07 06/01/18 02:00 Temperature Pulse Rate 90 98 H 89 Respiratory Rate 22 27 H 25 H Blood Pressure 160/86 H Pulse Oximetry 97 96 97 06/01/18 02:07 06/01/18 03:00 06/01/18 03:07 Temperature Pulse Rate 89 101 H 102 H Respiratory Rate 22 26 H 28 H Blood Pressure 151/72 H 172/81 H Pulse Oximetry 97 95 96 06/01/18 03:19 06/01/18 03:40 06/01/18 04:00 Temperature 98.4 F Pulse Rate 93 H 97 H 97 H Respiratory Rate 22 22 29 H Blood Pressure 167/86 H Pulse Oximetry 97 97 96 06/01/18 04:07 06/01/18 04:42 06/01/18 04:47 Temperature Pulse Rate 96 H 100 H 93 H Respiratory Rate 34 H 32 H 25 H Blood Pressure 174/79 H 182/76 H 175/79 H Pulse Oximetry 96 95 97 06/01/18 05:00 06/01/18 05:07 06/01/18 05:11 Temperature Pulse Rate 94 H 90 97 H Respiratory Rate 33 H 23 36 H Blood Pressure 184/78 H 179/80 H Pulse Oximetry 97 97 97 06/01/18 06:00 06/01/18 07:02 06/01/18 08:00 Temperature 98.8 F Pulse Rate 79 81 85 Respiratory Rate 27 H 23 24 Blood Pressure 176/76 H 163/74 H 158/71 H Pulse Oximetry 96 98 96 06/01/18 09:00 06/01/18 10:00 Temperature Pulse Rate 83 94 H Respiratory Rate 18 29 H Blood Pressure 169/78 H 157/70 H Pulse Oximetry 95 94 L Intake & Output 05/31/18 06/01/18 06/01/18 18:59 06:59 18:59 Intake Total 700 / 700 Output Total 2960 / 2960 2265 / 2265 Balance -2960 / -2960 -1565 / -1565 Weight 159.3 kg Intake: Oral 700 / 700 Output: Urine Amount (Catheter) 2850 / 2850 2175 / 2175 Straight 2850 / 2850 2175 / 2175 Wound Drainage 110 / 110 90 / 90 # 1 Posterior LUCHO Drain 110 / 110 90 / 90 - Routine Neurological Exam June 01, 2018 Patient is lying in bed is into the room. His daughter sits next to him. On neurological examination, mental status testing finds him to be awake and alert. He is oriented by 3. Cognitive functions grossly intact. His speech is fluent. Cranial nerve testing 2 through 12 is grossly intact. He remains essentially paraplegic with only 1+/5+ movement of his left hip flexor. Sensory examination is intact to light touch, which is diminished from T6 down with absent position sense in both lower extremities. He is incontinent of bowel and bladder and has a Schmidt catheter in place. The thoracic wound finds the dressing to be dry and intact. The LUCHO drain remains in place. - Urinary Catheter Management Straight Cath placed during this visit: yes, but has since been removed by the nurse Reason for continuing: Not indwelling catheter Insertion date: 06/01/18 Insertion time: 06:50 Removal date: 06/01/18 Removal time: 07:00 Indwelling Urethral Catheter Cath placed during this visit: yes Reason for continuing: Acute urinary retention Insertion date: 06/01/18 Insertion time: 08:15 1 Cath placed during this visit: yes, but has since been removed by the nurse Reason for continuing: Not indwelling catheter Insertion date: 05/29/18 Insertion time: 13:20 Removal date: 05/30/18 Removal time: 18:00 Assessment and Plan - Plan 64 yo male with acute onset of BLE weakness with Rt>>Lt. Stable nEURO EXAM Right lower extremity shows possible early cellulitis,needs further workup T spine CT shows significant compression fracture with mild retropulsion although images are degraded due to morbid obesity. T and L-spine MRI with and without Gadolinium shows compression from complex T3 pathologic fracture Appreciate STAT Rad Onc Consult for XrT to T3 area which, he is starting today. Decadron 10 mg IV q6h for the next 3 days and then would taper No indication for Neurosurgical Intervention at this time, will sign off and be available as needed. Discussed with patient and Daughter. All questions were answered today. May 29, 2018 The patient has developed a profound neurological deficit essentially paraplegic at this point. He has an incomplete sensory loss. He is incontinent of urine. Therapeutic options were discussed with the patient and the family. Surgical decompression was offered. Specifically bilateral laminectomies of T2-T3 and T4 with resection of tumor and spinal cord decompression. The risks, benefits, limitations, complications, and alternatives to surgery were discussed and enumerated and no guarantees were afforded. They understood this and are requesting surgical intervention. Informed consent has been obtained. The patient will be brought to the operating emergently. The pre-operative orders have been submitted. May 30, 2018 The patient is stable postoperative day #1 status post T2-T4 laminectomies for spinal cord decompression and resection of epidural tumor. Unfortunately the patient remains essentially paraplegic postoperatively as he was preoperatively. He is to continue the present management he will require extensive course of rehabilitation and probably will need to be transferred for a course of inpatient rehabilitation. At this point, he needs mobilization and physical as well as Occupational Therapy. Pharmacological DVT prophylaxis can be restarted. I discussed this all with his family at the bedside. I also informed Dr. Kevin Conde, radiation oncologist that the patient delivered emergent surgical intervention and that radiation therapy at this point to his spine that need to be delayed. I also discussed case with the ethics officer. I would continue the present management. Neurosurgery will follow. May 31, 2018 Patient remained stable postoperative day #2 Status post T2 through T4 laminectomies for spinal cord decompression and resection of an epidural tumor. He has some shortness of breath and is mildly hypoxic. He is undergoing aggressive respiratory therapy. He is being medically managed by the ethics officer, and I would continue the present management. He remains essentially paraplegic. He requires mobilization and rehabilitation. Neurosurgery will follow. June 01, 2018 The patient remained stable postoperative day #3, status post T2 through T4 laminectomies for spinal cord decompression and resection of an epidural tumor. His shortness of breath is unchanged and he continues to undergo aggressive respiratory therapy. I would continue the present management as per the critical care team. The patient requires mobilization and rehabilitation. I discussed his clinical condition with him and his daughter and related to them that I did not think that he would regain neurological function. They understood. Dr. Melchor his oncologist came in to visit the patient discussed his prognosis. I also discussed his case with Dr. Melchor. We agreed that the patient would require transfer after this inpatient hospitalization to either inpatient rehabilitation or subacute rehabilitation facility or shelter facility. Neurosurgery will follow.
--- NOTE | 2018-06-01 11:14 | P.PNPAL ---
Reason for Visit Reason for visit: a. To assist with evaluation and management of symptoms including: pain, dyspnea, debility, anxiety b. To assist medical decision maker(s) with: better understanding of current medical conditions; weighing benefits/burdens of medical treatment options; making medical treatment decisions. 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 Now s/p lami, tumor resection, spinal cord decompression and little or no improvement in paralysis. Pt had restlessness and respiratory distress yesterday not significantly alleviated by xanax, breathing tx or lasix and was put on bipap. Seen in room, daughter at bedside. Pt c/o anxiety. He is receptive to hospice informational consult but requests that hospice send someone tomorrow and not today as he is feeling overwhelmed and anxious. Briefly reviewed his status and his discussion with both Dr Melchor and Dr Mujica. Reviewed his options for treatment and d/c to include going to hospice care center which he and daughter are considering. Assured him that he should he elect H and transfer to a care center, he would not be obligated to stay there forever and that after a few days being evaluated and monitored in a care center, they could explore their other options for placement. Also assured him that should he have shortness of breath, being no code did not mean he wouldnt be treated- he would still be given medications to ease his breathing and any feelings of anxiety, pain, or air hunger. He agrees to change in code status to DNR but does not want to sign the yellow paper today. Family/Friend Interactions: As above Objective Vital Signs: Vital Signs 05/31/18 11:07 05/31/18 12:07 05/31/18 13:07 Temperature 98.0 F Pulse Rate 98 H 97 H 95 H Respiratory Rate 31 H 32 H 33 H Blood Pressure 145/70 H 153/72 H 149/70 H Pulse Oximetry 95 94 L 94 L 05/31/18 13:14 05/31/18 14:07 05/31/18 15:00 Temperature Pulse Rate 98 H 97 H 96 H Respiratory Rate 28 H 35 H 37 H Blood Pressure 144/67 H Pulse Oximetry 94 L 94 L 05/31/18 15:05 05/31/18 15:07 05/31/18 16:07 Temperature Pulse Rate 102 H 100 H 100 H Respiratory Rate 28 H 35 H 39 H Blood Pressure 163/73 H 160/77 H Pulse Oximetry 95 93 L 05/31/18 17:00 05/31/18 17:07 05/31/18 18:00 Temperature Pulse Rate 95 H 96 H 111 H Respiratory Rate 30 H 32 H 49 H Blood Pressure 151/67 H Pulse Oximetry 94 L 94 L 91 L 05/31/18 18:07 05/31/18 18:17 05/31/18 19:00 Temperature 98.2 F Pulse Rate 103 H 95 H Respiratory Rate 32 H 31 H Blood Pressure 165/78 H Pulse Oximetry 96 96 96 05/31/18 19:07 05/31/18 20:00 05/31/18 20:05 Temperature Pulse Rate 95 H 89 Respiratory Rate 31 H 19 Blood Pressure 165/73 H Pulse Oximetry 96 97 97 05/31/18 20:07 05/31/18 20:09 05/31/18 21:00 Temperature Pulse Rate 96 H 93 H 97 H Respiratory Rate 26 H 25 H 21 Blood Pressure 149/67 H Pulse Oximetry 97 97 05/31/18 21:07 05/31/18 21:24 05/31/18 22:00 Temperature Pulse Rate 99 H 97 H 93 H Respiratory Rate 22 25 H 25 H Blood Pressure 175/77 H 167/80 H Pulse Oximetry 97 96 97 05/31/18 22:07 05/31/18 23:00 05/31/18 23:24 Temperature Pulse Rate 97 H 98 H 101 H Respiratory Rate 23 26 H 30 H Blood Pressure 151/82 H 177/91 H Pulse Oximetry 97 97 96 05/31/18 23:29 06/01/18 00:00 06/01/18 00:07 Temperature 98.7 F Pulse Rate 91 H 95 H Respiratory Rate 15 21 Blood Pressure 168/83 H Pulse Oximetry 97 98 97 06/01/18 01:00 06/01/18 01:07 06/01/18 02:00 Temperature Pulse Rate 90 98 H 89 Respiratory Rate 22 27 H 25 H Blood Pressure 160/86 H Pulse Oximetry 97 96 97 06/01/18 02:07 06/01/18 03:00 06/01/18 03:07 Temperature Pulse Rate 89 101 H 102 H Respiratory Rate 22 26 H 28 H Blood Pressure 151/72 H 172/81 H Pulse Oximetry 97 95 96 06/01/18 03:19 06/01/18 03:40 06/01/18 04:00 Temperature 98.4 F Pulse Rate 93 H 97 H 97 H Respiratory Rate 22 22 29 H Blood Pressure 167/86 H Pulse Oximetry 97 97 96 06/01/18 04:07 06/01/18 04:42 06/01/18 04:47 Temperature Pulse Rate 96 H 100 H 93 H Respiratory Rate 34 H 32 H 25 H Blood Pressure 174/79 H 182/76 H 175/79 H Pulse Oximetry 96 95 97 06/01/18 05:00 06/01/18 05:07 06/01/18 05:11 Temperature Pulse Rate 94 H 90 97 H Respiratory Rate 33 H 23 36 H Blood Pressure 184/78 H 179/80 H Pulse Oximetry 97 97 97 06/01/18 06:00 06/01/18 07:02 06/01/18 08:00 Temperature 98.8 F Pulse Rate 79 81 85 Respiratory Rate 27 H 23 24 Blood Pressure 176/76 H 163/74 H 158/71 H Pulse Oximetry 96 98 96 06/01/18 09:00 06/01/18 10:00 Temperature Pulse Rate 83 94 H Respiratory Rate 18 29 H Blood Pressure 169/78 H 157/70 H Pulse Oximetry 95 94 L Intake & Output 05/31/18 06/01/18 06/01/18 18:59 06:59 18:59 Intake Total 700 / 700 Output Total 2960 / 2960 2265 / 2265 Balance -2960 / -2960 -1565 / -1565 Weight 159.3 kg Intake: Oral 700 / 700 Output: Urine Amount (Catheter) 2850 / 2850 2175 / 2175 Straight 2850 / 2850 2175 / 2175 Wound Drainage 110 / 110 90 / 90 # 1 Posterior LUCHO Drain 110 / 110 90 / 90 Physical Exam: CONSTITUTIONAL/GENERAL: This is a morbidly obese pt resting in bed, in no apparent distress. TUBES/LINES/DRAINS: PIV, burch, NC SKIN: No jaundice, rashes, or lesions. rectangular patch erythema on forehead. No wounds seen anteriorly. Skin temperature appropriate. Not diaphoretic. HEAD: Atraumatic. Normocephalic. EYES: Pupils equal and round and reactive. Extraocular motions intact. No scleral icterus. No injection or drainage. Fundi not examined. ENT: Hearing grossly normal. Nose without bleeding or purulent drainage. CARDIOVASCULAR: Regular rate and rhythm without murmurs, gallops, or rubs. No JVD. Peripheral pulses symmetric. RESPIRATORY/CHEST: mildly tachypneic. Symmetric, unlabored respirations. Clear to auscultation. Breath sounds equal bilaterally. No wheezes, rales, or rhonchi. Diminished breath sounds GASTROINTESTINAL: Abdomen soft, non-tender,obese. No hepato-splenomegaly, or palpable masses. No guarding. Bowel sounds present. GENITOURINARY: Without palpable bladder distension. Burch catheter in place. MUSCULOSKELETAL: Extremities without clubbing, cyanosis, or edema. No joint tenderness or effusion noted. No calf tenderness. No mottling or clubbing. NEUROLOGICAL: Awake and alert. Follows commands. Cognitively sharp. minimal movement left foot, strength 1/5, +sensation to moderate pressure. No movement or sensation right foot. PSYCHIATRIC: Flat affect. no apparent hallucinations or other psychotic thought process. Diagnostic Tests Laboratory: Laboratory Results - last 72 hr 05/29/18 05/29/18 05/29/18 10:57 10:57 10:57 WBC 19.6 H RBC 4.56 Hgb 13.8 Hct 42.0 MCV 92.3 MCH 30.2 MCHC 32.8 RDW 15.1 Plt Count 307 D MPV 8.0 Prelim Diff (Auto) Neut % (Auto) 88.9 H Lymph % (Auto) 3.9 L [place] % (Auto) 7.0 Eos % (Auto) 0.0 Baso % (Auto) 0.2 Neut # (Auto) 17.5 H Lymph # (Auto) 0.8 L [place] # (Auto) 1.4 H Eos # (Auto) 0.0 Baso # (Auto) 0.0 WBC Differential . Diff Scan Seg Neuts % (Manual) Band Neuts % (Manual) Lymphocytes % (Manual) Monocytes % (Manual) Metamyelocytes % (Man) Abs Neuts (Manual) Differential Comment Auto diff final Platelet Estimate Platelet Morphology PT 10.7 INR 1.1 APTT 23.5 Puncture Site Patient Temperature O2 Saturation ABG pH ABG pCO2 ABG pO2 ABG HCO3 ABG O2 Content ABG Base Excess ABG Methemoglobin Jeramie Test Hemoglobin Carboxyhemoglobin O2 Delivery Device Vent Setting Inspired O2 Critical Value Sodium 138 Potassium 4.3 Chloride 102 Carbon Dioxide 29.1 Anion Gap 7 BUN 36 H Creatinine 1.32 H Estimated GFR 55 L POC Glucose Random Glucose 229 H Lactic Acid Calcium 9.3 Blood Type Blood Type Recheck Antibody Screen MTS Gel Crossmatch Bld Prod Order Comment 05/29/18 05/29/18 05/29/18 10:57 10:57 10:57 WBC RBC Hgb Hct MCV MCH MCHC RDW Plt Count MPV Prelim Diff (Auto) Neut % (Auto) Lymph % (Auto) [place] % (Auto) Eos % (Auto) Baso % (Auto) Neut # (Auto) Lymph # (Auto) [place] # (Auto) Eos # (Auto) Baso # (Auto) WBC Differential Diff Scan Seg Neuts % (Manual) Band Neuts % (Manual) Lymphocytes % (Manual) Monocytes % (Manual) Metamyelocytes % (Man) Abs Neuts (Manual) Differential Comment Platelet Estimate Platelet Morphology PT INR APTT Cancelled Puncture Site Patient Temperature O2 Saturation ABG pH ABG pCO2 ABG pO2 ABG HCO3 ABG O2 Content ABG Base Excess ABG Methemoglobin Jeramie Test Hemoglobin Carboxyhemoglobin O2 Delivery Device Vent Setting Inspired O2 Critical Value Sodium Potassium Chloride Carbon Dioxide Anion Gap BUN Creatinine Estimated GFR POC Glucose Random Glucose Lactic Acid Calcium Blood Type O Positive Blood Type Recheck Required Antibody Screen Negative MTS Gel Crossmatch See Detail Bld Prod Order Comment Cancelled 05/29/18 05/29/18 05/29/18 11:44 11:50 18:40 WBC RBC Hgb Hct MCV MCH MCHC RDW Plt Count MPV Prelim Diff (Auto) Neut % (Auto) Lymph % (Auto) [place] % (Auto) Eos % (Auto) Baso % (Auto) Neut # (Auto) Lymph # (Auto) [place] # (Auto) Eos # (Auto) Baso # (Auto) WBC Differential Diff Scan Seg Neuts % (Manual) Band Neuts % (Manual) Lymphocytes % (Manual) Monocytes % (Manual) Metamyelocytes % (Man) Abs Neuts (Manual) Differential Comment Platelet Estimate Platelet Morphology PT INR APTT Puncture Site Right radial Patient Temperature 98.6 O2 Saturation 96 ABG pH 7.24 L* ABG pCO2 58 H* ABG pO2 142 H ABG HCO3 24 ABG O2 Content 15.0 ABG Base Excess -2.9 L ABG Methemoglobin 1.3 Jeramie Test Present Hemoglobin 11.0 L Carboxyhemoglobin 1.3 O2 Delivery Device Vent Vent Setting Prvc/16/500/5/1.0/ Inspired O2 50 Critical Value Yes Sodium Potassium Chloride Carbon Dioxide Anion Gap BUN Creatinine Estimated GFR POC Glucose 196 H Random Glucose Lactic Acid Calcium Blood Type Blood Type Recheck Antibody Screen MTS Gel Crossmatch See Detail Bld Prod Order Comment 05/29/18 05/29/18 05/29/18 20:00 20:00 20:00 WBC 31.6 H D RBC 3.77 L Hgb 11.1 L D Hct 35.0 L MCV 92.8 MCH 29.5 MCHC 31.8 L RDW 14.7 Plt Count 309 MPV 7.8 Prelim Diff (Auto) Slide review pending Neut % (Auto) Lymph % (Auto) [place] % (Auto) Eos % (Auto) Baso % (Auto) Neut # (Auto) Lymph # (Auto) [place] # (Auto) Eos # (Auto) Baso # (Auto) WBC Differential Manual diff final Diff Scan Seg Neuts % (Manual) 89 H Band Neuts % (Manual) 3 Lymphocytes % (Manual) 3 L Monocytes % (Manual) 1 Metamyelocytes % (Man) 4 H Abs Neuts (Manual) 30.3 H Differential Comment . Platelet Estimate Normal Platelet Morphology PT INR APTT Puncture Site Patient Temperature O2 Saturation ABG pH ABG pCO2 ABG pO2 ABG HCO3 ABG O2 Content ABG Base Excess ABG Methemoglobin Jeramie Test Hemoglobin Carboxyhemoglobin O2 Delivery Device Vent Setting Inspired O2 Critical Value Sodium 138 Potassium 5.0 Chloride 103 Carbon Dioxide 24.7 Anion Gap 10 BUN 47 H Creatinine 2.16 H Estimated GFR 31 L POC Glucose Random Glucose 241 H Lactic Acid 3.9 H Calcium 8.3 L D Blood Type Blood Type Recheck Antibody Screen MTS Gel Crossmatch Bld Prod Order Comment 05/30/18 05/30/18 05/30/18 03:05 04:40 04:40 WBC 30.7 H RBC 3.40 L Hgb 10.2 L Hct 31.7 L MCV 93.3 MCH 29.9 MCHC 32.1 RDW 14.9 Plt Count 277 MPV 8.0 Prelim Diff (Auto) Slide review pending Neut % (Auto) 94.7 H Lymph % (Auto) 1.7 L [place] % (Auto) 3.4 Eos % (Auto) 0.0 Baso % (Auto) 0.2 Neut # (Auto) 29.1 H Lymph # (Auto) 0.5 L [place] # (Auto) 1.0 H Eos # (Auto) 0.0 Baso # (Auto) 0.1 WBC Differential Manual diff final Diff Scan Seg Neuts % (Manual) 92 H Band Neuts % (Manual) 4 Lymphocytes % (Manual) 2 L Monocytes % (Manual) 2 Metamyelocytes % (Man) Abs Neuts (Manual) 29.5 H Differential Comment . Platelet Estimate Normal Platelet Morphology Normal PT INR APTT Puncture Site Patient Temperature O2 Saturation ABG pH ABG pCO2 ABG pO2 ABG HCO3 ABG O2 Content ABG Base Excess ABG Methemoglobin Jeramie Test Hemoglobin Carboxyhemoglobin O2 Delivery Device Vent Setting Inspired O2 Critical Value Sodium 138 Potassium 4.6 Chloride 104 Carbon Dioxide 27.5 Anion Gap 7 BUN 47 H Creatinine 1.61 H Estimated GFR 44 L POC Glucose Random Glucose 285 H Lactic Acid 1.7 Calcium 8.1 L Blood Type Blood Type Recheck Antibody Screen MTS Gel Crossmatch Bld Prod Order Comment 05/30/18 05/30/18 05/30/18 05:21 08:54 12:52 WBC RBC Hgb Hct MCV MCH MCHC RDW Plt Count MPV Prelim Diff (Auto) Neut % (Auto) Lymph % (Auto) [place] % (Auto) Eos % (Auto) Baso % (Auto) Neut # (Auto) Lymph # (Auto) [place] # (Auto) Eos # (Auto) Baso # (Auto) WBC Differential Diff Scan Seg Neuts % (Manual) Band Neuts % (Manual) Lymphocytes % (Manual) Monocytes % (Manual) Metamyelocytes % (Man) Abs Neuts (Manual) Differential Comment Platelet Estimate Platelet Morphology PT INR APTT Puncture Site Right radial Patient Temperature 98.6 O2 Saturation 95 ABG pH 7.43 H ABG pCO2 38 ABG pO2 130 H ABG HCO3 25 ABG O2 Content 13.0 ABG Base Excess 1.0 ABG Methemoglobin 1.6 Jeramie Test Present Hemoglobin 9.6 L Carboxyhemoglobin 1.0 O2 Delivery Device Ventilator Vent Setting 16/600/[id number]/it1.0 Inspired O2 40 Critical Value No Sodium Potassium Chloride Carbon Dioxide Anion Gap BUN Creatinine Estimated GFR POC Glucose 299 H 222 H Random Glucose Lactic Acid Calcium Blood Type Blood Type Recheck Antibody Screen MTS Gel Crossmatch Bld Prod Order Comment 05/30/18 05/30/18 05/31/18 17:01 19:43 06:10 WBC 27.2 H RBC 3.42 L Hgb 10.3 L Hct 32.1 L MCV 93.8 MCH 30.0 MCHC 32.0 RDW 14.9 Plt Count 243 MPV 8.1 Prelim Diff (Auto) Neut % (Auto) 94.0 H Lymph % (Auto) 1.6 L [place] % (Auto) 4.3 Eos % (Auto) 0.0 Baso % (Auto) 0.1 Neut # (Auto) 25.6 H Lymph # (Auto) 0.4 L [place] # (Auto) 1.2 H Eos # (Auto) 0.0 Baso # (Auto) 0.0 WBC Differential . Diff Scan Seg Neuts % (Manual) Band Neuts % (Manual) Lymphocytes % (Manual) Monocytes % (Manual) Metamyelocytes % (Man) Abs Neuts (Manual) Differential Comment Auto diff final Platelet Estimate Platelet Morphology PT INR APTT Puncture Site Patient Temperature O2 Saturation ABG pH ABG pCO2 ABG pO2 ABG HCO3 ABG O2 Content ABG Base Excess ABG Methemoglobin Jeramie Test Hemoglobin Carboxyhemoglobin O2 Delivery Device Vent Setting Inspired O2 Critical Value Sodium Potassium Chloride Carbon Dioxide Anion Gap BUN Creatinine Estimated GFR POC Glucose 194 H 192 H Random Glucose Lactic Acid Calcium Blood Type Blood Type Recheck Antibody Screen MTS Gel Crossmatch Bld Prod Order Comment 05/31/18 05/31/18 05/31/18 06:10 09:32 12:51 WBC RBC Hgb Hct MCV MCH MCHC RDW Plt Count MPV Prelim Diff (Auto) Neut % (Auto) Lymph % (Auto) [place] % (Auto) Eos % (Auto) Baso % (Auto) Neut # (Auto) Lymph # (Auto) [place] # (Auto) Eos # (Auto) Baso # (Auto) WBC Differential Diff Scan Seg Neuts % (Manual) Band Neuts % (Manual) Lymphocytes % (Manual) Monocytes % (Manual) Metamyelocytes % (Man) Abs Neuts (Manual) Differential Comment Platelet Estimate Platelet Morphology PT INR APTT Puncture Site Patient Temperature O2 Saturation ABG pH ABG pCO2 ABG pO2 ABG HCO3 ABG O2 Content ABG Base Excess ABG Methemoglobin Jeramie Test Hemoglobin Carboxyhemoglobin O2 Delivery Device Vent Setting Inspired O2 Critical Value Sodium 136 Potassium 5.1 Chloride 102 Carbon Dioxide 28.8 Anion Gap 5 BUN 37 H Creatinine 1.01 Estimated GFR 75 L POC Glucose 214 H 223 H Random Glucose 212 H Lactic Acid Calcium 8.8 Blood Type Blood Type Recheck Antibody Screen MTS Gel Crossmatch Bld Prod Order Comment 05/31/18 05/31/18 06/01/18 17:47 21:08 04:15 WBC 23.2 H RBC 3.48 L Hgb 10.5 L Hct 32.2 L MCV 92.4 MCH 30.2 MCHC 32.6 RDW 14.8 Plt Count 256 MPV 7.9 Prelim Diff (Auto) Slide review pending Neut % (Auto) 92.5 H Lymph % (Auto) 2.0 L [place] % (Auto) 4.5 Eos % (Auto) 0.0 Baso % (Auto) 1.0 Neut # (Auto) 21.4 H Lymph # (Auto) 0.5 L [place] # (Auto) 1.0 H Eos # (Auto) 0.0 Baso # (Auto) 0.2 WBC Differential . Diff Scan Auto diff confirmed Seg Neuts % (Manual) Band Neuts % (Manual) Lymphocytes % (Manual) Monocytes % (Manual) Metamyelocytes % (Man) Abs Neuts (Manual) Differential Comment . Platelet Estimate Normal Platelet Morphology Normal PT INR APTT Puncture Site Patient Temperature O2 Saturation ABG pH ABG pCO2 ABG pO2 ABG HCO3 ABG O2 Content ABG Base Excess ABG Methemoglobin Jeramie Test Hemoglobin Carboxyhemoglobin O2 Delivery Device Vent Setting Inspired O2 Critical Value Sodium Potassium Chloride Carbon Dioxide Anion Gap BUN Creatinine Estimated GFR POC Glucose 219 H 231 H Random Glucose Lactic Acid Calcium Blood Type Blood Type Recheck Antibody Screen MTS Gel Crossmatch Bld Prod Order Comment 06/01/18 06/01/18 04:15 08:15 WBC RBC Hgb Hct MCV MCH MCHC RDW Plt Count MPV Prelim Diff (Auto) Neut % (Auto) Lymph % (Auto) [place] % (Auto) Eos % (Auto) Baso % (Auto) Neut # (Auto) Lymph # (Auto) [place] # (Auto) Eos # (Auto) Baso # (Auto) WBC Differential Diff Scan Seg Neuts % (Manual) Band Neuts % (Manual) Lymphocytes % (Manual) Monocytes % (Manual) Metamyelocytes % (Man) Abs Neuts (Manual) Differential Comment Platelet Estimate Platelet Morphology PT INR APTT Puncture Site Patient Temperature O2 Saturation ABG pH ABG pCO2 ABG pO2 ABG HCO3 ABG O2 Content ABG Base Excess ABG Methemoglobin Jeramie Test Hemoglobin Carboxyhemoglobin O2 Delivery Device Vent Setting Inspired O2 Critical Value Sodium 133 L Potassium 5.0 Chloride 95 L Carbon Dioxide 32.5 H Anion Gap 6 BUN 36 H Creatinine 0.91 Estimated GFR 85 L POC Glucose 271 H Random Glucose 234 H Lactic Acid Calcium 9.1 Blood Type Blood Type Recheck Antibody Screen MTS Gel Crossmatch Bld Prod Order Comment Result Diagrams: 06/01/18 04:15 06/01/18 04:15 Imaging: ITS Impressions Lumbar Spine CT 05/25/18 15:05 CONCLUSION: 1. Mild broad-based disc bulge L2-3 without canal stenosis. 2. Moderate broad-based disc bulge at L3-4 in conjunction with hypertrophic facets causes severe canal stenosis. 3. Moderate right-sided protrusion L4-5 causes mild canal stenosis. Thoracic Spine CT 05/25/18 15:05 CONCLUSION: 1. Pathologic fracture with moderate compression deformity at T3. There does appear to be a large soft tissue component encroaching upon the thecal sac and causing severe canal stenosis. The exam is somewhat limited due to image degradation. 2. Kyphosis and diffuse degenerative changes. Thoracic Spine MRI 05/25/18 18:03 CONCLUSION: 1. Suspected pathological fracture at the T3 vertebral body resulting in severe stenosis. 2. Multiple masses in the left lung and lymph nodes in the mediastinum. The lungs and mediastinum aren't well evaluated on this MRI examination of the thoracic spine. Lumbar Spine MRI 05/25/18 18:49 CONCLUSION: 1. No focal lesions are seen. 2. Moderate narrowing of the thecal sac at the L3-L4 level primarily secondary to facet and ligamentum flavum hypertrophy. 3. Right-sided disc protrusion causing mild impression on the right lateral recess and right neural foraminal regions at the L4-L5 level. 4. Sacralization of L5. This is a normal variant. Cervical Spine X-Ray 05/29/18 00:00 CONCLUSION: Intraoperative localizing study. Chest X-Ray 05/29/18 00:00 CONCLUSION: 1. Multiple lines and tubes in place. Postsurgical findings of the left mid thorax with likely drainage catheter the left-sided mediastinum. 2. Low lung volumes with patchy bilateral lower lung zone opacity. No evidence of pleural effusion or pneumothorax. 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 He is a [place]. Has 1 daughter. Owns a Ule. Spending time with family and his dog are important to him and what make him happy. Spiritual: anabaptism is important but pt declines pastoral care at this time. Legal: Pt is decision maker. Should he become incapacitated, proxy medical decision making would fall to his . Ethical issues impacting care: none Important Contacts: Stacy [phone] Prognosis: 62 y/o morbidly obese male with metastatic squamous cell skin ca of left exilla , pulmonary mets, hx radiation pneumonitis who has had no success with immunotherapy, chemotherapy, radiation, surgical intervention. Course complicated by development of radiation pneumonitis. REcently developed acute BLE weakness and paralysis and pathologic fx spine. AFter surgical intervention he remains paralysed. It is unlikely he will regain full use of his lower extremities or benefit from additional treatments for his malignancy. Unlikely he will return to prior baseline. He remains at risk for deconditioning, further decline, and complications. Code Status: No Code DNR Plan: - LEGAL DECISION MAKER -patient is a decision maker. Should he become incapacitated, per [place] statute proxy medical decision making would fall to his - CODE STATUS- no code/DNR - GOALS - pending. Pt and family receptive to hospice informational consult but requests tomorrow and not today. Briefly his discussion with both Dr Melchor and Dr Mujica, options for treatment and d/c to include going to hospice care center which he and daughter are considering. Also assured him that should he have shortness of breath, being no code did not mean he wouldnt be treated- he would still be given medications to ease his breathing and any feelings of anxiety, pain, or air hunger. He agrees to change in code status to DNR but does not want to sign the yellow paper today. - SYMPTOMS - = dyspnea - multifactorial, 2/2 obesity/OHS, hx radiation pneumonitis, lung mets. had SOB yesterday, placed on bipap. = anxiety- multifactorial. has PRN alprazolam 0.5 mg upped to TID d/t ongoing anxiety. = pain - multifactorial 2/2 post surgical pain, malignancy, immobility. has PRN apap, PRN oxycodone 5 - 10 mg. = debility - 2/2 pathologic fx & spinal mass s/p resection, remains paralysed, unlikely to improve - d/w Dr Fu - d/w charge operator - d/w Dr Melchor - hospice consult 06/02/18 - Palliative care will continue to follow during hospital course as condition evolves, to assist patient/decision-maker with understanding of medical conditions, weighing benefits/burdens of treatment options, for clarification of goals of treatment. Additionally will assist with any symptoms of palliative concern
[2018-06-01] MEDS: ALPRAZolam 0.5 MG Tablet PO PRN ×2 (11:25→20:12)
[2018-06-01] MEDS: Enoxaparin Inj 40 MG/0.4 ML Syringe SQ SCH (17:36)
[2018-06-02 04:40] LABS: Hematocrit 33.4 % (39.0-51.0); Hemoglobin 10.8 gm/dL (13.0-17.0); Mean Corpuscular HGB Conc 32.3 % (32.0-36.0); Mean Corpuscular Hemoglobin 29.9 pg (27.0-34.0); Mean Corpuscular Volume 92.6 fL (80.0-100.0); Mean Platelet Volume 8.1 fL (7.0-11.0); Platelet Count 264 th/mm3 (150-450); Red Blood Count 3.61 mil/mm3 (4.50-5.90)
[2018-06-02 05:00] LABS: Anion Gap 3 meq/L (5-15); Blood Urea Nitrogen 36 mg/dL (7-18); Calcium 8.9 mg/dL (8.5-10.1); Carbon Dioxide 39.5 meq/L (21.0-32.0); Chloride 96 meq/L (98-107); Glomerular Filtration Rate Greater Than 89 mL/min (>89); Glucose,Random 184 mg/dL (74-106); Magnesium 1.9 mg/dL (1.5-2.5); Potassium 4.7 meq/L (3.5-5.1); Sodium 138 meq/L (136-145)
[2018-06-02] MEDS: Insulin NovoLOG Aspart Correctional Sugar Inj SQ SCH ×4 (09:06→20:11)
[2018-06-02] MEDS: Multivit/Folic Acid/Minerals Chewable Tablets CHEW SCH (09:06)
[2018-06-02] MEDS: Bisacodyl 10 MG Supp RECTAL SCH (09:07)
[2018-06-02] MEDS: Senna/Docusate Sodium 8.6/50 MG Tablet PO SCH ×2 (09:07→20:12)
--- NOTE | 2018-06-02 12:18 | P.PNCC ---
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 On admission to the hospital he had some stability issues with walking but suddenly now he is functionally paraplegic below that level. The primary site of this metastatic process may be the left axilla or the lung; unclear from the chart. Both lung arteaga are littered with metastatic lesions. He is on his way to the operating room now for emergency decompression of the cord and stabilization of the upper thoracic spine and I am seen him in preparation for his postoperative care in the intensive care unit. INR is 1.1 and platelet count is 307,000. The patient noticeably hypoventilates due to morbid obesity and chest wall discomfort. Glucose intolerance is observed, exacerbated by pulse steroid therapy. The patient is on chronic narcotic analgesics at home. 1800 hrs. : Back from OR after T2 - T4 bilateral laminectomies. Neosynephrine infusion. 5 liters crystalloid. Mechanical ventilation via orotracheal intubation. 05/30/18: No overnight events, patient is purposeful but does not follow commands during sedation breaks as per RN. No movement of lower extremities. Still on low -dose matteo. 05/31: Successfully extubated yesterday morning, off all pressors since sedation was held. Per RN, patient has been straight cathed every 6 hours and is putting out nearly a liter of urine each time; he has no sensation of fullness or urge to urinate. 06/01: Patient was notably restless and tachypneic throughout the day yesterday which was only minimally relieved with neb treatments, lasix, and PRN Xanax. He was placed on bipap yesterday evening and tolerated it well throughout the night. He is asking to have the mask removed this morning and reports that he still feels very anxious. He is being intermittently straight cathed q4h for urinary retention but is putting out nearly a liter and a half of urine each time; will change back to Schmidt today. 06/02: Patient refused bipap mask last night, says "my breathing is fine". He just spoke with the hospice liason and says that he would like to spend some time discussing hospice vs rehab options with his before making a decision. Objective Vital Signs / I&O: Vital Signs 06/01/18 13:00 06/01/18 14:00 06/01/18 15:00 Temperature Pulse Rate 87 89 85 Respiratory Rate 23 23 24 Blood Pressure 151/67 H 137/63 153/68 H Pulse Oximetry 95 93 L 96 06/01/18 16:00 06/01/18 17:00 06/01/18 18:00 Temperature Pulse Rate 89 89 87 Respiratory Rate 36 H 22 23 Blood Pressure 168/74 H 168/80 H 164/79 H Pulse Oximetry 95 95 94 L 06/01/18 19:00 06/01/18 20:00 06/01/18 21:00 Temperature 98.4 F Pulse Rate 89 88 100 H Respiratory Rate 22 24 22 Blood Pressure 157/81 H 158/78 H 160/83 H Pulse Oximetry 94 L 94 L 95 06/01/18 22:00 06/01/18 23:00 06/02/18 00:00 Temperature 98.6 F Pulse Rate 87 83 84 Respiratory Rate 24 23 26 H Blood Pressure 141/71 H 136/64 136/63 Pulse Oximetry 96 97 94 L 06/02/18 01:00 06/02/18 01:44 06/02/18 02:00 Temperature Pulse Rate 85 81 Respiratory Rate 16 16 19 Blood Pressure 145/68 H 133/64 Pulse Oximetry 94 L 95 06/02/18 03:00 06/02/18 04:00 06/02/18 05:00 Temperature Pulse Rate 83 85 89 Respiratory Rate 24 21 18 Blood Pressure 127/60 127/60 123/71 Pulse Oximetry 95 94 L 94 L 06/02/18 05:44 06/02/18 06:00 06/02/18 07:00 Temperature Pulse Rate 88 88 89 Respiratory Rate 25 H 28 H Blood Pressure 132/64 148/72 H Pulse Oximetry 94 L 93 L 06/02/18 08:00 06/02/18 09:00 06/02/18 10:00 Temperature 98.6 F Pulse Rate 87 96 H 88 Respiratory Rate 28 H 25 H 29 H Blood Pressure 142/63 H 157/81 H 139/65 Pulse Oximetry 95 93 L 92 L 06/02/18 11:00 Temperature Pulse Rate 93 H Respiratory Rate 35 H Blood Pressure 149/71 H Pulse Oximetry 93 L Intake & Output 06/01/18 06/02/18 06/02/18 18:59 06:59 18:59 Intake Total 720 / 720 240 / 240 Output Total 4210 / 4210 1325 / 1325 Balance -3490 / -3490 -1085 / -1085 Weight 156.3 kg Intake: Oral 720 / 720 240 / 240 Output: Urine Amount (Catheter) 4150 / 4150 1300 / 1300 Indwelling Urethral Catheter 4150 / 4150 1300 / 1300 Wound Drainage # 1 Posterior LUCHO Drain Result Diagrams: 06/02/18 04:15 06/02/18 04:15 Objective Remarks: GEN: Well-appearing elderly male, not currently distressed, mildly dyspneic HEENT: NCAT, mucosa moist NECK: Trachea midline CARDIO: Regular rate and rhythm PULM: Mildly tachypneic, speaking in complete sentences, diminished breath sounds at bases bilaterally ABD/GI: Soft, non-distended, non-tender in all quadrants EXT/MSK: 1+ pitting edema to all extremities SKIN: Warm and well-perfused NEURO: Awake and alert, still with no movement of bilateral lower extremities PSYCH: Calm Assessment and Plan - Assessment and Plan Plan: Assessment: 62yM with pathologic T3 fracture and spinal cord compression from metastatic squamous cell CA s/p resection Plan by systems: NEURO: Thoracic metastatic vertebral lesion (T3) with spinal cord compression Pathologic T3 fracture Lower extremity paraplegia H/O squamous cell carcinoma H/O anxiety -POD #4 s/p B/L T2-4 laminectomies with resection of epidural tumor and spinal cord decompression -Continue dexamethasone-- will d/w NSG regarding weaning/ stop date -Patient reports improvement in anxiety after PRN xanax was switched from BID to TID yesterday -PT/OT -Multipodus boots -Bed to chair position whenever possible CARDIO: Hypotension- resolved Bradycardia- resolved -No active issues PULM: H/O lung metastases H/O sleep apnea (?) T3 spinal cord lesion -Bipap when patient tolerates, encouraged him to use this at night -Incentive spirometer, encourage deep breathing/ coughing F/E/N, RENAL: Acute kidney injury Acute urinary retention Hyponatremia -ICU electrolyte protocol -Patient's urine output is excellent, continue diuresis as he is still fairly edematous on exam -Continue Schmidt catheter for acute urinary retention and diuresis GI: Mild protein calorie malnutrition as evidenced by hypoalbuminemia on admission Morbid obesity -Tolerating diabetic diet -SSI, high coverage scale -Multivitamin supplementation -Bowel regimen PROPHY: -PPI -SCDs, Lovenox Oral impression: This patient has respiratory distress/ tachypnea requiring intermittent bipap (when he is agreeable). He changed his code status to DNR yesterday and is currently considering hospice vs rehab options. Will keep him in the ICU today. Level 2 follow up To help prompt me to consider important information that might be impacting today's encounter and assessment, information from prior notes written by myself or my colleagues may have been "brought forward" into today's note. My signature on this note, however, is an attestation that I personally performed the exam, history, and/or decision-making noted today, and, unless otherwise indicated, the interactions with patient, family, and staff as well as the review of records all occurred today. I also attest that the listed assessment and stated plan reflect my best clinical judgment today based on the combination of historical information, prior notes, and today's exam/ interactions. Code Status: DNR
--- NOTE | 2018-06-02 15:04 | P.PNNS ---
Subjective Interval history: June 02, 2018 Patient neurologically stable overnight. Reports no change in motor function in his legs. <Sari Zimmer - Last Filed: 06/02/18 14:48> Physical Exam Vital signs: Vital Signs 06/01/18 15:00 06/01/18 16:00 06/01/18 17:00 Temperature Pulse Rate 85 89 89 Respiratory Rate 24 36 H 22 Blood Pressure 153/68 H 168/74 H 168/80 H Pulse Oximetry 96 95 95 06/01/18 18:00 06/01/18 19:00 06/01/18 20:00 Temperature 98.4 F Pulse Rate 87 89 88 Respiratory Rate 23 22 24 Blood Pressure 164/79 H 157/81 H 158/78 H Pulse Oximetry 94 L 94 L 94 L 06/01/18 21:00 06/01/18 22:00 06/01/18 23:00 Temperature Pulse Rate 100 H 87 83 Respiratory Rate 22 24 23 Blood Pressure 160/83 H 141/71 H 136/64 Pulse Oximetry 95 96 97 06/02/18 00:00 06/02/18 01:00 06/02/18 01:44 Temperature 98.6 F Pulse Rate 84 85 Respiratory Rate 26 H 16 16 Blood Pressure 136/63 145/68 H Pulse Oximetry 94 L 94 L 06/02/18 02:00 06/02/18 03:00 06/02/18 04:00 Temperature Pulse Rate 81 83 85 Respiratory Rate 19 24 21 Blood Pressure 133/64 127/60 127/60 Pulse Oximetry 95 95 94 L 06/02/18 05:00 06/02/18 05:44 06/02/18 06:00 Temperature Pulse Rate 89 88 88 Respiratory Rate 18 25 H Blood Pressure 123/71 132/64 Pulse Oximetry 94 L 94 L 06/02/18 07:00 06/02/18 08:00 06/02/18 09:00 Temperature 98.6 F Pulse Rate 89 87 96 H Respiratory Rate 28 H 28 H 25 H Blood Pressure 148/72 H 142/63 H 157/81 H Pulse Oximetry 93 L 95 93 L 06/02/18 10:00 06/02/18 11:00 Temperature Pulse Rate 88 93 H Respiratory Rate 29 H 35 H Blood Pressure 139/65 149/71 H Pulse Oximetry 92 L 93 L Intake & Output 06/01/18 06/02/18 06/02/18 18:59 06:59 18:59 Intake Total 720 / 720 240 / 240 Output Total 4210 / 4210 1325 / 1325 Balance -3490 / -3490 -1085 / -1085 Weight 156.3 kg Intake: Oral 720 / 720 240 / 240 Output: Urine Amount (Catheter) 4150 / 4150 1300 / 1300 Indwelling Urethral Catheter 4150 / 4150 1300 / 1300 Wound Drainage 60 # 1 Posterior LUCHO Drain Narrative: June 02, 2018 Patient is lying in bed is into the room. His daughter sits next to him. On neurological examination, mental status testing finds him to be awake and alert. He is oriented by 3. Cognitive functions grossly intact. His speech is fluent. Cranial nerve testing 2 through 12 is grossly intact. He remains essentially paraplegic with only 1+/5+ movement of his left hip flexor. Sensory examination is intact to light touch, which is diminished from T6 down with absent position sense in both lower extremities. He is incontinent of bowel and bladder and has a Schmidt catheter in place. The thoracic wound finds the dressing to be dry and intact. The LUCHO drain remains in place. - Urinary Catheter Management Straight Cath placed during this visit: yes, but has since been removed by the nurse Reason for continuing: Not indwelling catheter Insertion date: 06/01/18 Insertion time: 06:50 Removal date: 06/01/18 Removal time: 07:00 Indwelling Urethral Catheter Cath placed during this visit: yes Reason for continuing: Acute urinary retention Insertion date: 06/01/18 Insertion time: 08:15 1 Cath placed during this visit: yes, but has since been removed by the nurse Reason for continuing: Not indwelling catheter Insertion date: 05/29/18 Insertion time: 13:20 Removal date: 05/30/18 Removal time: 18:00 <Sari Zimmer - Last Filed: 06/02/18 14:48> Vital signs: Vital Signs 06/01/18 16:00 06/01/18 17:00 06/01/18 18:00 Temperature Pulse Rate 89 89 87 Respiratory Rate 36 H 22 23 Blood Pressure 168/74 H 168/80 H 164/79 H Pulse Oximetry 95 95 94 L 06/01/18 19:00 06/01/18 20:00 06/01/18 21:00 Temperature 98.4 F Pulse Rate 89 88 100 H Respiratory Rate 22 24 22 Blood Pressure 157/81 H 158/78 H 160/83 H Pulse Oximetry 94 L 94 L 95 06/01/18 22:00 06/01/18 23:00 06/02/18 00:00 Temperature 98.6 F Pulse Rate 87 83 84 Respiratory Rate 24 23 26 H Blood Pressure 141/71 H 136/64 136/63 Pulse Oximetry 96 97 94 L 06/02/18 01:00 06/02/18 01:44 06/02/18 02:00 Temperature Pulse Rate 85 81 Respiratory Rate 16 16 19 Blood Pressure 145/68 H 133/64 Pulse Oximetry 94 L 95 06/02/18 03:00 06/02/18 04:00 06/02/18 05:00 Temperature Pulse Rate 83 85 89 Respiratory Rate 24 21 18 Blood Pressure 127/60 127/60 123/71 Pulse Oximetry 95 94 L 94 L 06/02/18 05:44 06/02/18 06:00 06/02/18 07:00 Temperature Pulse Rate 88 88 89 Respiratory Rate 25 H 28 H Blood Pressure 132/64 148/72 H Pulse Oximetry 94 L 93 L 06/02/18 08:00 06/02/18 09:00 06/02/18 10:00 Temperature 98.6 F Pulse Rate 87 96 H 88 Respiratory Rate 28 H 25 H 29 H Blood Pressure 142/63 H 157/81 H 139/65 Pulse Oximetry 95 93 L 92 L 06/02/18 11:00 Temperature Pulse Rate 93 H Respiratory Rate 35 H Blood Pressure 149/71 H Pulse Oximetry 93 L Intake & Output 06/01/18 06/02/18 06/02/18 18:59 06:59 18:59 Intake Total 720 / 720 240 / 240 Output Total 4210 / 4210 1325 / 1325 Balance -3490 / -3490 -1085 / -1085 Weight 156.3 kg Intake: Oral 720 / 720 240 / 240 Output: Urine Amount (Catheter) 4150 / 4150 1300 / 1300 Indwelling Urethral Catheter 4150 / 4150 1300 / 1300 Wound Drainage 60 / 60 25 / 25 # 1 Posterior LUCHO Drain 60 / 60 25 / 25 - Urinary Catheter Management Straight Cath placed during this visit: no Indwelling Urethral Catheter Cath placed during this visit: no 1 Cath placed during this visit: no <Nelson Pena - Last Filed: 06/02/18 15:42> Assessment and Plan - Plan 64 yo male with acute onset of BLE weakness with Rt>>Lt. Stable nEURO EXAM Right lower extremity shows possible early cellulitis,needs further workup T spine CT shows significant compression fracture with mild retropulsion although images are degraded due to morbid obesity. T and L-spine MRI with and without Gadolinium shows compression from complex T3 pathologic fracture Appreciate STAT Rad Onc Consult for XrT to T3 area which, he is starting today. Decadron 10 mg IV q6h for the next 3 days and then would taper No indication for Neurosurgical Intervention at this time, will sign off and be available as needed. Discussed with patient and Daughter. All questions were answered today. May 29, 2018 The patient has developed a profound neurological deficit essentially paraplegic at this point. He has an incomplete sensory loss. He is incontinent of urine. Therapeutic options were discussed with the patient and the family. Surgical decompression was offered. Specifically bilateral laminectomies of T2-T3 and T4 with resection of tumor and spinal cord decompression. The risks, benefits, limitations, complications, and alternatives to surgery were discussed and enumerated and no guarantees were afforded. They understood this and are requesting surgical intervention. Informed consent has been obtained. The patient will be brought to the operating emergently. The pre-operative orders have been submitted. May 30, 2018 The patient is stable postoperative day #1 status post T2-T4 laminectomies for spinal cord decompression and resection of epidural tumor. Unfortunately the patient remains essentially paraplegic postoperatively as he was preoperatively. He is to continue the present management he will require extensive course of rehabilitation and probably will need to be transferred for a course of inpatient rehabilitation. At this point, he needs mobilization and physical as well as Occupational Therapy. Pharmacological DVT prophylaxis can be restarted. I discussed this all with his family at the bedside. I also informed Dr. Kevin Conde, radiation oncologist that the patient delivered emergent surgical intervention and that radiation therapy at this point to his spine that need to be delayed. I also discussed case with the cmv driver. I would continue the present management. Neurosurgery will follow. May 31, 2018 Patient remained stable postoperative day #2 Status post T2 through T4 laminectomies for spinal cord decompression and resection of an epidural tumor. He has some shortness of breath and is mildly hypoxic. He is undergoing aggressive respiratory therapy. He is being medically managed by the cmv driver, and I would continue the present management. He remains essentially paraplegic. He requires mobilization and rehabilitation. Neurosurgery will follow. June 01, 2018 The patient remained stable postoperative day #3, status post T2 through T4 laminectomies for spinal cord decompression and resection of an epidural tumor. His shortness of breath is unchanged and he continues to undergo aggressive respiratory therapy. I would continue the present management as per the critical care team. The patient requires mobilization and rehabilitation. I discussed his clinical condition with him and his daughter and related to them that I did not think that he would regain neurological function. They understood. Dr. Melchor his oncologist came in to visit the patient discussed his prognosis. I also discussed his case with Dr. Melchor. We agreed that the patient would require transfer after this inpatient hospitalization to either inpatient rehabilitation or subacute rehabilitation facility or snf facility. Neurosurgery will follow. June 02, 2018 The patient remained stable postoperative day #4, status post T2 through T4 laminectomies for spinal cord decompression and resection of an epidural tumor. Continue the present management as per the critical care team. The patient requires mobilization and rehabilitation. Dr. Pena again discussed his clinical condition with him and his daughter and related to them regain neurological function is poor. They understood. Oncology continues to follow. We recommend patient would require transfer after this inpatient hospitalization to either inpatient rehabilitation or subacute rehabilitation facility or snf facility. Plan for LUCHO drain to be removed tomorrow. Neurosurgery will follow. <Sari Zimmer - Last Filed: 06/02/18 14:48> - Attending Attestation June 02, 2018 I personally interviewed and examined the patient. I reviewed the documentation , laboratory values, and I discussed the case with the neurosurgery team, the cmv driver, and we formulated the plan as above. We also decided that this point the patient can be weaned off steroids from a neurosurgical point. It should be noted, that I also discussed all of this with the patient and his family who are at the bedside. Neurosurgery will follow. <Nelson Pena - Last Filed: 06/02/18 15:42>
[2018-06-02] MEDS: ALPRAZolam 0.5 MG Tablet PO PRN (20:10)
[2018-06-02] MEDS: Enoxaparin Inj 40 MG/0.4 ML Syringe SQ SCH (20:11)
[2018-06-03 00:42] VITALS: BP 132/65; PULSE 93; RESP 18; TEMP 98.8
[2018-06-03 02:28] VITALS: O2SAT 93
--- NOTE | 2018-06-03 06:46 | P.DN ---
- Provider Primary care physician: Anuel Watson MD Admitting clinician: Danika Vicente Attending physician on admission: Danika Vicente Consults: 05/25/18 18:02 Consult to Neurosurgery Routine Consulting Provider: Alexey Sutton Reason for Consultation: T3 compression fracture with lower extremity pain and numbness. Notified:: Physician Spoke with:: Dr. Sutton Date Notified:: 05/25/18 Time Notified:: 18:06 Ordering Provider: NOLAN 05/26/18 08:59 Consult to Radiation Oncology Stat Consulting Provider: Kevin Conde For STAT consult, spoke directly to:: Kevin Conde MD Preferred Cell Coverer:: Kevin Conde Reason for Consultation: 62 yo male with history of luncancer, currently receiving chemo. Several month history of upper back pain and 4-5 day history of progressively worsening pain as well as RLE weakness. T-spine MRI shows T# pathologic compression fracture Notified:: Office Spoke with:: marty Date Notified:: 05/26/18 Time Notified:: 09:38 Ordering Provider: CAROLA 05/29/18 17:45 Consult to Fur Farmer Stat Consulting Provider: Austyn Smith For STAT consult, spoke directly to:: Dr Smith Reason for Consultation: Post operative ICU management Spoke with:: added to list Date Notified:: 05/29/18 Time Notified:: 17:59 Comments:: Doctors were connected for consult - ML Ordering Provider: AZAEL Consult to Rehab Medicine Routine Consulting Provider: Adela Rodriguez Reason for Consultation: Thoracic Spinal cord Compression Notified:: Service Spoke with:: Iliana Date Notified:: 05/29/18 Time Notified:: 18:02 Ordering Provider: AZAEL 05/30/18 08:14 Consult to Palliative Care Routine Consulting Provider: Juan Carlos Walsh Reason for Consultation: metastatic cancer, mets to spine Notified:: Service Spoke with:: ANAYELI Date Notified:: 05/30/18 Time Notified:: 08:40 Ordering Provider: MENDEZ 06/02/18 17:27 Consult to Hospitalist Routine Consulting Provider: Fanta Dooley Reason for Consultation: Continuation of medical management on 06/03 Notified:: Service Spoke with:: Orquidea Date Notified:: 06/02/18 Time Notified:: 18:18 Ordering Provider: HRINGHAU - Admitting Diagnosis (1) Anxiety (2) Diabetes mellitus type 2 in obese (3) Dyspnea (4) Morbid obesity with BMI of 45.0-49.9, adult (5) Obesity hypoventilation syndrome (6) Pain (7) Paraplegia, incomplete (8) 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 (9) Respiratory failure following trauma and surgery (10) Weakness (11) Squamous cell carcinoma, metastatic - Diagnosis at Time of (1) Acute respiratory failure with hypoxia Diagnosis: Principal (2) Anxiety Diagnosis: Secondary (3) Diabetes mellitus type 2 in obese Diagnosis: Secondary (4) Dyspnea Diagnosis: Secondary (5) Morbid obesity with BMI of 45.0-49.9, adult Diagnosis: Secondary (6) Obesity hypoventilation syndrome Diagnosis: Secondary (7) Pain Diagnosis: Secondary (8) Paraplegia, incomplete Diagnosis: Secondary (9) 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 The patient had changed his code status to DNR earlier this week after discussions with palliative care. He had been refusing bipap for the past several days as he reported that the mask was uncomfortable. As per RN, last night he began to appear dyspneic and was having difficulty managing his secretions. He was extensively suctioned by RN and placed first on a non- rebreather mask, then on bipap; however, he pulled the bipap mask off and told the nurse that he did not want it and "wanted to pass". His family was present at the bedside with him. He on 06/03/18 at 01:15 AM. Procedures: Bilateral Thoracic Two through Thoracic Four Laminectomies with Resection of Epidural Tumor and Spinal Cord Decompression 05/29/[address] Pena Brief History: History from patient, ER physician communication, and review of medical records. Patient reported that for the past 3 days or so, he was so weak on his right side of the legs. He also has some numbness. He actually fell 2 days ago and injured his left knee. He denies any urinary disturbance or bowel disturbance. Reports he has been having back pain for the past 2 months as well. However the back pain is worse in the past 1 month or so. Denies any loss of sensation although he does feel numb on b right lower extremity. 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 He is currently on chemotherapy for this lung cancer and his first dose was done 2 weeks ago. While in the emergency room, further workup revealed a T3 pathological fracture. Patient was seen by neurosurgery in ER prior to my arrival. Apart from the above, patient denies any chest pain/palpitations/dizziness/ focal weakness. Denies any hematemesis/hematochezia/melena/hematuria. Denies any abdominal pains. Denies any nausea/vomiting/diarrhea/urinary burning or pain on urination. Patient reports of shortness of breath on exertion at baseline. Nothing has worsened in the past 2 weeks. Patient states that her right lower extremity is bigger than the left and he has had bilateral lower extremity swelling. Just 2 weeks ago, he has had ultrasound of the lower extremities done to rule out DVT with his oncologist Dr. Melchor. Review of system: complete review of systems performed and is negative apart from what is mentioned in HPI Past medical history: Squamous cell carcinoma of the left arm. Status post excision. Status post radiation therapy. 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 Status post chemotherapy first round 2 weeks ago. Next due on Wednesday. Also had radiation therapy to the lung. Diabetes Sleep apnea. On CPAP at home. Past surgical history: Surgical excision of the skin cancer MediPort placement Social history: Denies smoking/alcohol abuse/drug abuse. Never been a smoker. Family history: Mother had colon cancer at age 6060 years old. Father had esophageal cancer, vocal cord cancer. Possibly hypertension as well. Result Diagrams: 06/02/18 04:15 06/02/18 04:15 Significant Findings: Abnormal Lab Results 06/02/18 06/02/18 06/02/18 08:29 12:33 19:58 POC Glucose 184 H 182 H 222 H Hospital Course: This 62-year-old gentleman has widely metastatic squamous cell carcinoma including involvement of the third thoracic vertebral body resulting in a pathologic fracture of T3 and soft tissue bulging compressing the adjacent spinal cord. On admission to the hospital he had some stability issues with walking but suddenly now he is functionally paraplegic below that level. The primary site of this metastatic process may be the left axilla or the lung; unclear from the chart. Both lung arteaga are littered with metastatic lesions. He is on his way to the operating room now for emergency decompression of the cord and stabilization of the upper thoracic spine and I am seen him in preparation for his postoperative care in the intensive care unit. INR is 1.1 and platelet count is 307,000. The patient noticeably hypoventilates due to morbid obesity and chest wall discomfort. Glucose intolerance is observed, exacerbated by pulse steroid therapy. The patient is on chronic narcotic analgesics at home. 1800 hrs. : Back from OR after T2 - T4 bilateral laminectomies. Neosynephrine infusion. 5 liters crystalloid. Mechanical ventilation via orotracheal intubation. 05/30/18: No overnight events, patient is purposeful but does not follow commands during sedation breaks as per RN. No movement of lower extremities. Still on low -dose matteo. 05/31: Successfully extubated yesterday morning, off all pressors since sedation was held. Per RN, patient has been straight cathed every 6 hours and is putting out nearly a liter of urine each time; he has no sensation of fullness or urge to urinate. 06/01: Patient was notably restless and tachypneic throughout the day yesterday which was only minimally relieved with neb treatments, lasix, and PRN Xanax. He was placed on bipap yesterday evening and tolerated it well throughout the night. He is asking to have the mask removed this morning and reports that he still feels very anxious. He is being intermittently straight cathed q4h for urinary retention but is putting out nearly a liter and a half of urine each time; will change back to Schmidt today. 06/02: Patient refused bipap mask last night, says "my breathing is fine". He just spoke with the hospice liason and says that he would like to spend some time discussing hospice vs rehab options with his before making a decision. Patient was transitioned [facility] of [facility] to [facility] surg floor. - Additional Data Family: at bedside Attending/PCP notified?: No Was code activated?: No (DNR) Advance directives: Yes
== END 2018-06-03 03:59 | disposition expired | DRG 477 ==
LOC: NEPC 13:10 → NEDA 18:49 → N06 22:57 → N03 05-29 17:25 → N05 06-02 22:05
PROVIDERS: ADMIT Surgery Surgical Critical Care; ATTEND Surgery Surgical Critical Care
CPT/HCPCS: 36430; 36600; 71010; 71045; 72020; 72128; 72131; 72157; 72158; 76000; 77263; 77295; 77300; 77334; 77370; 77387; 77412; 80048; 80053; 82805; 82948; 82962; 83605; 83735; 85025; 85027; 85610; 85730; 86850; 86900; 86901; 86923; 88305; 88307; 88311; 90774; 90776; 90784; 93005; 94003; 94010; 94150; 94640; 94657; 94664; 94665; 94667; 96374; 96376; 97110; 97163; 97164; 97167; 97168; 97530; 99231; 99285; A9585; C8952; J0690; J1100; J1170; J1650; J1815; J1940; J2060; J2270; J2370; J2704; J3010; J7030; J7060; J8540; P9016; P9045